=== PATIENT | female | born 1930 | race Caucasian/White ===

== ENCOUNTER 2016-08-07 11:07 | Inpatient (IN) | payer MEDICARE ==
[~2016-08-07] VITALS: Ht 149.9 cm; Wt 33.2 kg
[~2016-08-07 11:07] MED LIST: ADV250INH INH; ASPI325T PO; AZIT250T3 PO; CALC600T7 PO; CALCTAB68 PO; CENTTAB47 PO; CRAN500C2 PO; DOCU10ELUD PO; ETHA400T PO; FISH1000 PO; FISHOIL PO; FLEC50TA PO; FLUTISP; IRON65TA PO; LEVO500T PO; MEST60TA PO; MULTCAP PO; PERC5TAB PO; PERC7.5T12 PO; PRED10TA PO; PRED50TA PO; PROBCAP4 PO; Q-VAR INH; QVAR40AE8 INH; QVAR80AE7 INH; RIFA300C3 PO; TYLE325T5 PO; VITA-121 PO; VITA100054 PO; VITA200016 PO; VITMTA PO
[2016-08-07 11:56] LABS: BASO % 0.3 % (0.0-1.0); EOS # 0.2 K/mm3 (0.0-0.50); EOS % 1.1 % (0.0-3.0); LARGE UNSTAINED CELL # 0.1 K/mm3 (0.0-0.4); LARGE UNSTAINED CELL % 0.6 % (0.0-4.0); LYMPH # 0.9 K/mm3 (1.5-4.5); LYMPH % 4.7 % (24.0-44.0); MEAN CORPUSCULAR HEMOGLOBIN 28.1 pg (27.0-33.0); MEAN CORPUSCULAR HGB CONC 31.5 g/dl (32.0-36.5); MEAN CORPUSCULAR VOLUME 89.2 fl (80.0-96.0); MONO # 0.7 K/mm3 (0.0-0.8); MONO % 4.2 % (0.0-5.0); NEUTROPHILS # 15.7 K/mm3 (1.8-7.7); NEUTROPHILS % 89.2 % (36.0-66.0); PLATELET COUNT, AUTOMATED 430 k/mm3 (150-450); RED CELL DISTRIBUTION WIDTH 13.8 % (11.5-14.5); WHITE BLOOD COUNT 17.6 K/mm3 (4.0-10.0)
--- NOTE | 2016-08-07 12:33 | REP ---
PORTABLE CHEST: AP portable view of the chest is performed and compared with multiple prior exams, most recently 03/07/2016 and 01/17/2016. 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 No definite acute infiltrate is seen. The heart appears mildly enlarged. Mediastinal silhouette is unchanged. IMPRESSION: Stable chronic fibrotic changes. No definite acute infiltrate. Signed by Florin Gil MD 08/07/2016 02:20 P
[2016-08-07 12:37] LABS: ANION GAP 10 MEQ/L (8-16); BLOOD UREA NITROGEN 25 MG/DL (7-18); CALCIUM LEVEL 9.5 MG/DL (8.8-10.2); CARBON DIOXIDE LEVEL 31 MEQ/L (21-32); CHLORIDE LEVEL 100 MEQ/L (98-107); FREE T4 1.14 NG/DL (0.76-1.46); GLOMERULAR FILTRATION RATE > 60.0 (>32); GLUCOSE, FASTING 154 MG/DL (83-110); MAGNESIUM LEVEL 1.9 MG/DL (1.8-2.4); POTASSIUM SERUM 4.4 MEQ/L (3.5-5.1); SODIUM LEVEL 141 MEQ/L (136-145)
[2016-08-07] MEDS ORDERED: PRED10TA PO (13:12)
[2016-08-07] MEDS ORDERED: AZIT250T3 PO (13:12)
[2016-08-07] MEDS ORDERED: ASPIRIN 81 MG CHEW TABLET As Ordered ONE (13:23)
--- NOTE | 2016-08-07 15:18 | HPEPDOC ---
Medical History and Physical Date of Admission Aug 07, 2016 at 13:24 History and Physical ATTENDING: Dr. Marcus PCP: Dr Romo CC: Not feeling well for 1 week HPI: 86 yoF with a past medical history significant for history of atrial tachycardia on flecainide as per Dr Hou. According to her daughter she cut her dose in half because it was making her tired. She has been feeling palpitations, dyspnea on exertion, intermittent dizziness, headaches, increased shortness of breath. Overall she has not been feeling well for the past 1 week. Her last fall was in May. According to her daughter she has lost 10 pounds in the past 2 months. She reports decreased appetite. Denies any fevers, chills , YOUSIF, CP, abdominal pain, N/V/D or changes in bowel or bladder habits. Upon presentation to the hospital the patient was found to have atrial tachycardia, thus the hospitalist team was consulted. 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 3 children ovarian cancer, lung cancer, suicide. ROS: As noted in HPI, otherwise 11pt ROS of systems reviewed and remarkable only for her daughter states she has had difficulty with her memory. She has been evaluated by Dr. Santso in the past. PE: GEN: 86yoF, appears stated age. Well-nourished, well developed. No acute distress. Alert and oriented x 3. Pleasant, interactive. HEENT: Normocephalic, atraumatic. Pupils are equal, round, and reactive to light. Extraocular movements are intact. No nystagmus appreciated. Sclera are nonicteric. Conjunctiva without injection. Nose midline. Nasal turbinates without bogginess.B/L hearing aids. No facial asymmetry. Moist mucous membranes. Dentition fair. Pharynx pink and moist, no cobblestoning. Neck supple , trachea midline. No lymphadenopathy or thyromegaly appreciated. CHEST: Regular rate and rhythm, +S1, +S2 LUNGS: Decreased breath sounds bilaterally. Patient is speaking in full sentences. No accessory muscle use. ABD: Round, soft, non-tender, non-distended. +Bowel sounds throughout. No rebound or guarding. No costovertebral angle tenderness. EXT: Pulses 2+ bilaterally dorsalis pedis and radial. No lower extremity edema appreciated. SKIN: [place], dry, warm. Capillary refill <2sec. No rashes. NEURO: Alert and oriented x 3. Cranial nerves III-XII are intact. No focal deficits appreciated. CXR: Severe COPD with extensive fibrosis. EK/13 11:22. Sinus tach, possible atrial flutter, left anterior fascicular block, ST-T wave abnormality, 157 bpm. EKG 08/07 sinus rhythm 79 bpm occasional PVC. A&P: 86 yoF with a past medical history significant for history of atrial tachycardia on flecainide as per Dr Hou. According to her daughter she cut her dose in half because it was making her tired. She has been feeling palpitations, dyspnea on exertion, intermittent dizziness, headaches, increased shortness of breath. Overall she has not been feeling well for the past 1 week. The patient will be admitted to PCU to Dr. Marcus's service. 1. Atrial tachycardia. Cardiology consulted, Dr. Lal. Spoke with Dr Lal, he will follow Pt. Flecainide on hold for now. (Per Dtr, pt has been self adjusting dose as Pt feels it was causing side effects and did not want to continue taking it). Cardizem 30 mg po TID with hold parameters. 2. Interstitial lung disease. Patient remains on Qvar BID, prednisone 10 mg daily. 3. Nontuberculous Mycobacterium. Regimen as per Dr Mesa. 4. DVT prophylaxis. The patient is a Full code. Vital Signs 109/73 77 18 98.1 96% 2 L nasal cannula Laboratory Data Labs 24H Laboratory Tests 2 08/07/16 11:40: Anion Gap 10, Blood Urea Nitrogen 25H, Creatinine 0.80, Sodium Level 141, Potassium Level 4.4, Chloride Level 100, Carbon Dioxide Level 31, Calcium Level 9.5, Total Creatine Kinase 45, Creatine Kinase MB 1.9, Creatine Kinase MB Relative Index 4.22H, Free Thyroxine 1.14, Glomerular Filtration Rate > 60.0, Magnesium Level 1.9, Thyroid Stimulating Hormone (TSH) 4.610H, Troponin I 0.17H 08/07/16 11:41: White Blood Count 17.6H, Red Blood Count 4.58, Hemoglobin 12.9, Hematocrit 40.9 , Mean Corpuscular Volume 89.2, Mean Corpuscular Hemoglobin 28.1, Mean Corpuscular Hemoglobin Concent 31.5L, Red Cell Distribution Width 13.8, Platelet Count 430, Neutrophils (%) (Auto) 89.2H, Lymphocytes (%) (Auto) 4.7L, Monocytes (%) (Auto) 4.2, Eosinophils (%) (Auto) 1.1, Basophils (%) (Auto) 0.3, Neutrophils # (Auto) 15.7H, Lymphocytes # (Auto) 0.9L, Monocytes # (Auto) 0.7, Eosinophils # (Auto) 0.2, Basophils # (Auto) 0.0, Large Unclassified Cells # 0.1 , Large Unclassified Cells % 0.6 CBC/BMP Laboratory Tests 08/07/16 11:40 Calcium Level 9.5, Total Creatine Kinase 45 08/07/16 11:41 Red Blood Count 4.58, Mean Corpuscular Volume 89.2, Mean Corpuscular Hemoglobin 28.1, Mean Corpuscular Hemoglobin Concent 31.5 L, Red Cell Distribution Width 13.8, Neutrophils (%) (Auto) 89.2 H, Lymphocytes (%) (Auto) 4.7 L, Monocytes (% ) (Auto) 4.2, Eosinophils (%) (Auto) 1.1, Basophils (%) (Auto) 0.3, Neutrophils # (Auto) 15.7 H, Lymphocytes # (Auto) 0.9 L, Monocytes # (Auto) 0.7, Eosinophils # (Auto) 0.2, Basophils # (Auto) 0.0 Home Medications Scheduled Azithromycin (Azithromycin) 250 Mg Tab 250 MG PO DAILY Beclomethasone Dipropionate (Qvar) 80 Mcg/Act Aer 80 MCG INH BID Calcium/Vitamin D (Calcium 600 + D 600-400 mg-Unit) 1 Tab Tab 1 TAB PO DAILY Cholecalciferol (Vitamin D-3) 1,000 Unit Tab 1,000 UNIT PO DAILY Cranberry Extract (Cranberry) 500 Mg Cap 500 MG PO DAILY Ethambutol HCl (Ethambutol HCl) 400 Mg Tab 800 MG PO DAILY Multivitamins *[facility] STOCKED* (Thera M Plus *[facility] STOCKED*) 1 Tab Tab 1 TAB PO DAILY Prednisone (Prednisone) 10 Mg Tab 10 MG PO DAILY Allergies Coded Allergies: No Known Allergies (Unverified , 11/17/14) GME ATTESTATION GME ATTESTATION My preceptor for this patient encounter was physically present in the building during the encounter and was fully available. As needed, all aspects of the patient interview, examination, medical decision making process, and medical care plan development were reviewed and approved by the preceptor. Preceptor is aware and concurs with the plan as stated in the body of this note and will attest to such by his/her cosignature. ATTENDING NOTE I have both independently examined this patient as well as reviewed the note. I have discussed in detail with the PA the findings and plan of treatment as documented in the PAs note. I will continue to follow the patient and offer further guidance to the patients care as necessary during this hospital stay. Heidi Montero Aug 07, 2016 15:17 KIMBERLY APONTE DO Aug 16, 2016 06:44
[2016-08-07 15:26] VITALS: BP 100/57
--- NOTE | 2016-08-07 19:13 | EDDOCDS ---
Physician Documentation [facility] Name: Loreto Adam Age: 86 yrs Sex: Female : 1930 Arrival Date: 08/07/2016 Time: 11:07 Bed Admit Hold Private MD: Ryan Romo M.D. Disposition: 08/07 13:00 Critical Care:. ml Disposition: 08/07/16 13:00 Hospitalization ordered by Nilam Lopez for Inpatient Admission. Preliminary diagnosis is Palpitations - atrial flutter rapid vs svt. - Bed requested for PCU. - Status is Inpatient Admission. ml3 - Condition is Stable. - Problem is new. - Symptoms have improved. Historical: - Allergies: no known allergies; - Home Meds: 1. prednisone 5 mg Oral tab 2 tabs once daily 2. azithromycin 250 mg Oral cap daily 3. ethambutol 400 mg oral tab 2 tab once daily 4. Centrum Silver 400-250 mcg oral chew 5. Citracal Oral daily 6. cranberry 400 mg oral cap 7. Vitamin D Oral 8. qvar twice a day 80mg - PMHx: interstitial lung disease; nontuberculous myobacteria; Pneumonia; - PSHx: none; - Social history: Smoking status: Patient states was never smoker of tobacco. No barriers to communication noted, The patient speaks fluent Swedish, Speaks appropriately for age. - Family history: Not pertinent. - : The pt / caregiver states he / she is not on anticoagulants. Home medication list is obtained from the patient, pill bottles. - Exposure Risk Screening:: None identified. Vital Signs: 11:09 BP 94 / 58; Pulse 46; Resp 16; Weight 34.93 kg / 77.01 lbs (R); Height 4 ft. 11 in. ct3 (149.86 cm) (R); 11:20 BP 124 / 88 (auto/); cjh 11:28 Pulse 156 MON; Pulse Ox 76% ; cjh 11:50 BP 120 / 73 (auto/); cjh 11:51 Pulse 152 MON; Pulse Ox 92% ; cjh 11:56 BP 112 / 73 (auto/); cjh 11:57 Pulse 150 MON; Pulse Ox 93% ; cjh 12:04 BP 107 / 55 (auto/); cjh 12:05 Pulse 84 MON; Pulse Ox 95% ; cjh 14:50 BP 102 / 56 (auto/); cjh 14:50 Pulse 74 MON; Pulse Ox 97% ; cjh 15:20 BP 100 / 57 (auto/); cjh 15:20 Pulse 72 MON; Pulse Ox 97% ; cjh 15:50 BP 96 / 52 (auto/); cjh 15:50 Pulse 78 MON; Pulse Ox 97% ; cjh 16:20 BP 101 / 58 (auto/); cjh 16:20 Pulse 72 MON; Pulse Ox 100% ; cjh 16:49 Pulse 70 MON; Pulse Ox 99% ; cjh 16:50 BP 104 / 55 (auto/); cjh 17:01 BP 101 / 55 (auto/); cjh 17:01 Pulse 72 MON; Pulse Ox 97% ; cjh 17:03 BP 101 / 55; Pulse 72; Resp 17; Temp 98.0(O); Pulse Ox 98% on 2.0 lpm NC; lr2 17:20 BP 96 / 58 (auto/); cjh 17:20 Pulse 70 MON; Pulse Ox 97% ; cjh 17:50 BP 114 / 61 (auto/); cjh 17:50 Pulse 74 MON; Pulse Ox 99% ; cjh 18:20 BP 101 / 54 (auto/); cjh 18:20 Pulse 76 MON; Pulse Ox 99% ; cjh 18:50 BP 98 / 53 (auto/); cjh 18:50 Pulse 70 MON; Pulse Ox 100% ; cjh 11:09 Body Mass Index 15.55 (34.93 kg, 149.86 cm) ct3 MDM: 11:17 ECG WITH READING ER PHYS+CARDIAG ordered. EDMS 11:19 IV Saline Lock ordered. ml 11:19 Buckle Strap Drum Operator/Pulse Ox/q 15 min VS ordered. ml 11:19 Rhythm Strip to chart ordered. ml 11:20 CBC with Diff Ordered. EDMS 11:20 MED Profile Ordered. EDMS 11:20 FreeT4 with TSH Ordered. EDMS 11:20 CIP Ordered. EDMS 11:20 Troponin Ordered. EDMS 11:21 Chest, 1 View Ordered. EDMS 11:39 Magnesium Level Ordered. EDMS 11:44 NS 0.9% 500 ml IV at bolus once ordered. ml 11:47 Diltiazem 10 mg IVP once; administer over 2 minutes ordered. ml 11:47 MAGNESIUM LEVEL Ordered. EDMS 12:03 ECG WITH READING ER PHYS+CARDIAG ordered. EDMS 12:22 Cardizem - Diltiazem 30 mg PO once ordered. ml 12:45 BED REQUEST+ADM ordered. EDMS 12:57 CBC with Diff Reviewed. ml 12:57 MED Profile Reviewed. ml 12:57 FreeT4 with TSH Reviewed. ml 12:57 CIP Reviewed. ml 12:57 Troponin Reviewed. ml 12:57 MAGNESIUM LEVEL Reviewed. ml 12:57 Chest, 1 View Reviewed. ml 12:59 Aspirin Chewable Tablet 324 mg PO once ordered. ml 13:27 Admission / Observation Status ordered. EDMS 13:50 Financial registration complete. 13:55 [facility] Payment Agreement was scanned into [id number] and attached to record. lg 15:23 REGULAR DIET ordered. EDMS 15:27 CARDIAC MARKER PANEL Ordered. EDMS 15:27 URINE CULTURE Ordered. EDMS 15:27 BLOOD CULTURES Ordered. EDMS Administered Medications: 11:51 Drug: NS 0.9% 500 ml Route: IV; Rate: bolus; Site: left forearm; [facility] 12:00 Drug: Diltiazem 10 mg [diltiazem 5 mg/mL intravenous solution (2 mL)] {Note: [facility] administerd 5mg and rate decreased to 84 bpm. Provider informed, and EKG obtained, verbal order to hold additional 5mg.} Route: IVP; Site: left antecubital; 12:34 Drug: Cardizem - Diltiazem 30 mg [diltiazem 30 mg tablet (1 tabs)] Route: PO; [facility] 13:30 Drug: Aspirin 324 mg [aspirin 81 mg chewable tablet (4 tabs)] Route: PO; [facility] Critical Care Time: 13:00 Critical care time: Bedside Care: 90 minutes, Consultation: 10 minutes. Total time: 100 ml minutes Signatures: Dispatcher [employer] EDND Arpit Sibley MD MD ml Jobson, Karen, RN RN kpj Ganter, LoriLee, Jose Reg Shanika Jimeneszabeth, [place] Supervisor Unit ml3 Octavia Carver RN RN kr3 Harriet Villegas RN RN [facility] The chart was reviewed and I authenticate all verbal orders and agree with the evaluation and treatment provided.[facility]: 13[facility]
--- NOTE | 2016-08-07 19:13 | EDDOCDS ---
Nurse's Notes [facility] Name: Loreto Adam Age: 86 yrs Sex: Female : 1930 Arrival Date: 08/07/2016 Time: 11:07 Bed Admit Hold Private MD: Ryan Romo M.D. Diagnosis: Palpitations-atrial flutter rapid vs svt Presentation: 08/07 11:23 Presenting complaint: Patient states: not feeling well for over 1 week. Reports balance kr3 has been off and today it was at its worse. Complains of palpitations on and off for many months. Adult Sepsis Screening: The patient does not have new or worsening altered mentation. Patient's respiratory rate is less than 22. Systolic blood pressure is greater than 100. Patient has a qSOFA score of 0- Negative Sepsis Screen. Suicide/Homicide risk assessment- the patient denies having any suicidal and/or homicidal ideations and does not present with any other emotional, behavioral or mental health complaints. Status: Patient is not a job service consultant or dependent. Transition of care: patient was not received from another setting of care. 11:23 Acuity: SALOMON Level 2 kr3 11:23 Method Of Arrival: Wheelchair kr3 Triage Assessment: 11:46 General: Appears in no apparent distress, comfortable, Behavior is cooperative. Pain: kr3 Location: chest Pain currently is 5 out of 10 on a pain scale. Quality of pain is described as aching. The patient is triaged at the bedside. See Assessment in Nurses Notes section of ED record. Historical: - Allergies: no known allergies; - Home Meds: 1. prednisone 5 mg Oral tab 2 tabs once daily 2. azithromycin 250 mg Oral cap daily 3. ethambutol 400 mg oral tab 2 tab once daily 4. Centrum Silver 400-250 mcg oral chew 5. Citracal Oral daily 6. cranberry 400 mg oral cap 7. Vitamin D Oral 8. qvar twice a day 80mg - PMHx: interstitial lung disease; nontuberculous myobacteria; Pneumonia; - PSHx: none; - Social history: Smoking status: Patient states was never smoker of tobacco. No barriers to communication noted, The patient speaks fluent [place], Speaks appropriately for age. - Family history: Not pertinent. - : The pt / caregiver states he / she is not on anticoagulants. Home medication list is obtained from the patient, pill bottles. - Exposure Risk Screening:: None identified. Screenin:16 Infection Control. ct3 18:10 Screening information is obtained from the patient. Fall risk: At risk due to age. [facility] Assistance ADL's: requires no assistance with activities of daily living. Abuse/DV Screen: The patient / caregiver reports he/she is: not in a situation that causes fear, pain or injury. Nutritional screening: No deficits noted. Advance Directives: There is no active DNR order. home support is adequate. Assessment: 12:09 General: Appears in no apparent distress, comfortable, Behavior is appropriate for age, [facility] cooperative. Pain: Denies pain. Neurological: Level of Consciousness is awake, alert, Oriented to person, place, time. Cardiovascular: Rhythm is atrial fibrillation with rapid ventricular response. Respiratory: Airway is patent Respiratory effort is even, unlabored, Respiratory pattern is regular, symmetrical, Breath sounds are clear bilaterally. Derm: Skin is pale. Musculoskeletal: Range of motion intact in all extremities. 13:30 General: Appears in no apparent distress, comfortable, Behavior is appropriate for age, [facility] cooperative, resting quietly on stretcher, and daughter at bedside, taking medications without difficulty, awaiting dispo and information from provider. Cardiovascular: Rhythm is sinus rhythm. 14:30 General: quiet in room, awaiting dispo. [facility] 15:30 General: assisted with bedside commode via [employer] staff, tolerates well. [facility] 16:30 General: Appears in no apparent distress, comfortable, Behavior is appropriate for age, [facility] cooperative, family at bedside, awaiting dispo. 18:10 General: Appears in no apparent distress, comfortable, Behavior is appropriate for age, [facility] cooperative. Pain: Denies pain. Neurological: Level of Consciousness is awake, alert, Oriented to person, place, time. Cardiovascular: Rhythm is sinus tachycardia. 18:59 General: awaiting admission, pending, no new problems or complaints. [facility] Vital Signs: 11:09 BP 94 / 58; Pulse 46; Resp 16; Weight 34.93 kg (R); Height 4 ft. 11 in. (149.86 cm) (R);ct3 11:20 BP 124 / 88 (auto/); h 11:28 Pulse 156 MON; Pulse Ox 76% ; cjh 11:50 BP 120 / 73 (auto/); cjh 11:51 Pulse 152 MON; Pulse Ox 92% ; cjh 11:56 BP 112 / 73 (auto/); cjh 11:57 Pulse 150 MON; Pulse Ox 93% ; cjh 12:04 BP 107 / 55 (auto/); cjh 12:05 Pulse 84 MON; Pulse Ox 95% ; cjh 14:50 BP 102 / 56 (auto/); cjh 14:50 Pulse 74 MON; Pulse Ox 97% ; cjh 15:20 BP 100 / 57 (auto/); cjh 15:20 Pulse 72 MON; Pulse Ox 97% ; cjh 15:50 BP 96 / 52 (auto/); cjh 15:50 Pulse 78 MON; Pulse Ox 97% ; cjh 16:20 BP 101 / 58 (auto/); cjh 16:20 Pulse 72 MON; Pulse Ox 100% ; cjh 16:49 Pulse 70 MON; Pulse Ox 99% ; cjh 16:50 BP 104 / 55 (auto/); cjh 17:01 BP 101 / 55 (auto/); cjh 17:01 Pulse 72 MON; Pulse Ox 97% ; cjh 17:03 BP 101 / 55; Pulse 72; Resp 17; Temp 98.0(O); Pulse Ox 98% on 2.0 lpm NC; lr2 17:20 BP 96 / 58 (auto/); cjh 17:20 Pulse 70 MON; Pulse Ox 97% ; cjh 17:50 BP 114 / 61 (auto/); cjh 17:50 Pulse 74 MON; Pulse Ox 99% ; cjh 18:20 BP 101 / 54 (auto/); cjh 18:20 Pulse 76 MON; Pulse Ox 99% ; cjh 18:50 BP 98 / 53 (auto/); cjh 18:50 Pulse 70 MON; Pulse Ox 100% ; cjh 11:09 Body Mass Index 15.55 (34.93 kg, 149.86 cm) ct3 Vitals: 11:09 Log In Time: August 07, 2016 at 10:07. ct3 11:09 RN notified that patient meets Red Flag criteria. ct3 ED Course: 11:09 Patient visited by Cecilia Hernandez PCA. ct3 11:09 Ryan Romo is Private Physician. ct3 11:09 Patient moved to Waiting ct3 11:15 Octavia Carver,DAKSHA is Primary Nurse. ct3 11:15 Patient moved to 19 ct3 11:22 EKG done. (by ED staff). Reviewed by Arpit Sibley MD. ar3 11:24 Triage Initiated kr3 11:27 Patient moved to 4 kp 11:28 Arpit Sibley MD is Attending Physician. ml 11:28 Patient visited by Arpit Sibley MD. ml 11:31 Patient visited by Medina Carrillo PCA. ar3 11:46 Inserted saline lock: 22 gauge in left forearm The patient tolerated the procedure well.kr3 12:08 MAGNESIUM LEVEL Sent. cjh 12:08 Troponin Sent. cjh 12:08 CIP Sent. cj 12:08 FreeT4 with TSH Sent. cj 12:08 MED Profile Sent. cj 12:35 Patient visited by Harriet Villegas RN. cj 12:45 Chest, 1 View Returned. EDMS 13:00 Nilam Lopez is Hospitalizing Provider. 13:31 Patient visited by Harriet Villegas RN. cj 13:55 [facility] Payment Agreement was scanned into [employer] and attached to record. lg 14:22 Chest, 1 View Returned. EDMS 14:51 Patient moved to 13 rs6 16:20 Patient moved to Admit Hold kp 17:43 Patient visited by Medina Carrillo PCA. ar3 18:10 The patient / caregiver is instructed regarding the plan of care and ED course. cjh 18:10 No procedures done that require assistance. cj 18:11 Patient visited by Pam Vitale RN. ld5 Administered Medications: 11:51 Drug: NS 0.9% 500 ml Route: IV; Rate: bolus; Site: left forearm; [facility] 12:00 Drug: Diltiazem 10 mg [diltiazem 5 mg/mL intravenous solution (2 mL)] {Note: [facility] administerd 5mg and rate decreased to 84 bpm. Provider informed, and EKG obtained, verbal order to hold additional 5mg.} Route: IVP; Site: left antecubital; 12:34 Drug: Cardizem - Diltiazem 30 mg [diltiazem 30 mg tablet (1 tabs)] Route: PO; [facility] 13:30 Drug: Aspirin 324 mg [aspirin 81 mg chewable tablet (4 tabs)] Route: PO; [facility] Order Results: Lab Order: CBC with Diff; SPEC'M 08/07/16 11:41 Test: WHITE BLOOD COUNT; Value: 17.6; Range: 4.0-10.0; Abnormal: Above high normal; Units: K/mm3; Status: F Test: RED BLOOD COUNT; Value: 4.58; Range: 4.00-5.40; Units: M/mm3; Status: F Test: HEMOGLOBIN; Value: 12.9; Range: 12.0-16.0; Units: g/dl; Status: F Test: HEMATOCRIT; Value: 40.9; Range: 36.0-47.0; Units: %; Status: F Test: MEAN CORPUSCULAR VOLUME; Value: 89.2; Range: 80.0-96.0; Units: fl; Status: F Test: MEAN CORPUSCULAR HEMOGLOBIN; Value: 28.1; Range: 27.0-33.0; Units: pg; Status: F Test: MEAN CORPUSCULAR HGB CONC; Value: 31.5; Range: 32.0-36.5; Abnormal: Below low normal; Units: g/dl; Status: F Test: RED CELL DISTRIBUTION WIDTH; Value: 13.8; Range: 11.5-14.5; Units: %; Status: F Test: PLATELET COUNT, AUTOMATED; Value: 430; Range: 150-450; Units: k/mm3; Status: F Test: NEUTROPHILS %; Value: 89.2; Range: 36.0-66.0; Abnormal: Above high normal; Units: %; Status: F Test: LYMPH %; Value: 4.7; Range: 24.0-44.0; Abnormal: Below low normal; Units: %; Status: F Test: MONO %; Value: 4.2; Range: 0.0-5.0; Units: %; Status: F Test: EOS %; Value: 1.1; Range: 0.0-3.0; Units: %; Status: F Test: BASO %; Value: 0.3; Range: 0.0-1.0; Units: %; Status: F Test: LARGE UNSTAINED CELL %; Value: 0.6; Range: 0.0-4.0; Units: %; Status: F Test: NEUTROPHILS #; Value: 15.7; Range: 1.8-7.7; Abnormal: Above high normal; Units: K/mm3; Status: F Test: LYMPH #; Value: 0.9; Range: 1.5-4.5; Abnormal: Below low normal; Units: K/mm3; Status: F Test: MONO #; Value: 0.7; Range: 0.0-0.8; Units: K/mm3; Status: F Test: EOS #; Value: 0.2; Range: 0.0-0.50; Units: K/mm3; Status: F Test: BASO #; Value: 0.0; Range: 0.0-0.2; Units: K/mm3; Status: F Test: LARGE UNSTAINED CELL #; Value: 0.1; Range: 0.0-0.4; Units: K/mm3; Status: F Lab Order: [facility] Profile; [facility]' 08/07/16 11:40 Test: GLUCOSE, FASTING; Value: 154; Range: 83-110; Abnormal: Above high normal; Units: MG/DL; Status: F Test: BLOOD UREA NITROGEN; Value: 25; Range: 7-18; Abnormal: Above high normal; Units: MG/DL; Status: F Test: CREATININE FOR GFR; Value: 0.80; Range: 0.55-1.02; Units: MG/DL; Status: F Test: GLOMERULAR FILTRATION RATE; Value: > 60.0; Range: >32; Status: F Test: SODIUM LEVEL; Value: 141; Range: 136-145; Units: MEQ/L; Status: F Test: POTASSIUM SERUM; Value: 4.4; Range: 3.5-5.1; Units: MEQ/L; Status: F Test: CHLORIDE LEVEL; Value: 100; Range: 98-107; Units: MEQ/L; Status: F Test: CARBON DIOXIDE LEVEL; Value: 31; Range: 21-32; Units: MEQ/L; Status: F Test: ANION GAP; Value: 10; Range: 8-16; Units: MEQ/L; Status: F Test: CALCIUM LEVEL; Value: 9.5; Range: 8.8-10.2; Units: MG/DL; Status: F Test Note: ; Units are mL/min/1.73 m2 Chronic Kidney Disease Staging per NKF: Stage I & II GFR >=60 Normal to Mildly Decreased Stage III GFR 30-59 Moderately Decreased Stage IV GFR 15-29 Severely Decreased Stage V GFR <15 Very Little GFR Left ESRD GFR <15 on QUILT STUFFER Lab Order: FreeT4 with TSH; [facility] 08/07/16 11:40 Test: THYROID STIMULATING HORMONE; Value: 4.610; Range: 0.358-3.740; Abnormal: Above high normal; Units: uIU/ML; Status: F Test: FREE T4; Value: 1.14; Range: 0.76-1.46; Units: NG/DL; Status: F Lab Order: CIP; [facility]08/[facility] 11:40 Test: CPK CREATINE PHOSPHOKINASE; Value: 45; Range: 26-192; Units: U/L; Status: F Test: CK-MB VALUE MASS; Value: 1.9; Range: 0.0-3.6; Units: NG/ML; Status: F Test: MB/CK RELATIVE INDEX; Value: 4.22; Range: < OR =4; Abnormal: Above high normal; Status: F Test Note: ; DIAGNOSIS CRITERIA MMB ng/ml Relative Index (RI) NON-AMI < or = 5 N/A GIL ZONE > 5 < or = 4 AMI > 5 > 4 Lab Order: Troponin; [facility] 08/07/16 11:40 Test: TROPONIN I; Value: 0.17; Range: < 0.10; Abnormal: Above high normal; Units: NG/ML; Status: F Test Note: ; Troponin I Reference Interval for [employer]raw[employer] LOCI: 99th Percentile= 0.00-0.045 ng/ml Risk Stratification: <= 0.10 ng/ml Decreased Risk for Adverse Clinical Events. 0.10-1.50 ng/ml Increased Risk for Adverse Clinical Events. Evaluation of additional criterion and/or repeat testing in 2-6 hours is suggested to rule out myocardial damage. >= 1.50 ng/ml Indicative of Myocardial Injury. Lab Order: MAGNESIUM LEVEL; [facility] 08/07/16 11:40 Test: MAGNESIUM LEVEL; Value: 1.9; Range: 1.8-2.4; Units: MG/DL; Status: F Lab Order: CARDIAC MARKER PANEL; SPEC'M 08/07/16 18:18 Test: CPK CREATINE PHOSPHOKINASE; Value: 34; Range: 26-192; Units: U/L; Status: F Test: CK-MB VALUE MASS; Value: 1.3; Range: 0.0-3.6; Units: NG/ML; Status: F Test: MB/CK RELATIVE INDEX; Value: 3.82; Range: < OR =4; Status: F Test: TROPONIN I; Value: 0.10; Range: < 0.10; Abnormal: Delta; Units: NG/ML; Status: F Test Note: ; DIAGNOSIS CRITERIA MMB ng/ml Relative Index (RI) NON-AMI < or = 5 N/A GIL ZONE > 5 < or = 4 AMI > 5 > 4 Radiology Order: Chest, 1 View Test: Chest, 1 View REASON FOR EXAMINATION: palpitatins; PORTABLE CHEST:; ; AP portable view of the chest is performed and compared with multiple prior; exams, most recently 03/07/2016 and 01/17/2016.; ; There is diffuse severe fibrosis which appears essentially stable. No definite; acute infiltrate is seen. The heart appears mildly enlarged. Mediastinal; silhouette is unchanged.; ; IMPRESSION:; ; Stable chronic fibrotic changes. No definite acute infiltrate.; ; ; Signed by; Florin Gil MD 08/07/2016 02:20 P; Outcome: 13:00 Decision to Hospitalize by Provider. ml 18:10 Discharge Assessment: Patient awake, alert and oriented x 3. No cognitive and/or cjh functional deficits noted. Patient verbalized understanding of disposition instructions. patient administered narcotics - no. The following High Risk Discharge criteria are identified: None. Admitted to PCU. Condition: stable. No special radiology studies were completed. Property :Personal belongings accompany Pt. 19:12 Patient left the ED. ml3 Signatures: Dispatcher [employer] EDMS Arpit Sibley MD MD ml Jobson, Karen, RN RN Gerry Patrick, Reg Reg lg Diane Jimenesbeth, Loan Consultant Unit ml3 Octavia Carver,RN RN patti3 Medina Carrillo, [employer] ar3 Pam Vitale RN RN sandro5 Cecilia Hernandez, [employer] ct3 Harriet Villegas RN RN cjh Teresita Gutierrez, [employer] rs6 Pam Pedraza lr2 Corrections: (The following items were deleted from the chart) 18:13 18:10 CT Study completed. [facility] MTDD
[2016-08-07 19:15] VITALS: BP 106/58
[2016-08-07 23:39] VITALS: BP 119/56
[2016-08-07] MEDS: FLUTICASONE HFA 44 MCG 10.6GM INHALER (FLOVENT) INH SCH (23:39)
[2016-08-08] VITALS (7 sets, daily range): BP systolic 85–133; BP diastolic 55–93
[2016-08-08] MEDS: ACETAMINOPHEN TAB 650MG DOSE (2X325MG) PO PRN (01:54)
[2016-08-08 05:13] LABS: MEAN CORPUSCULAR HEMOGLOBIN 27.5 pg (27.0-33.0); MEAN CORPUSCULAR HGB CONC 30.8 g/dl (32.0-36.5); MEAN CORPUSCULAR VOLUME 89.1 fl (80.0-96.0); RED CELL DISTRIBUTION WIDTH 14.1 % (11.5-14.5); WHITE BLOOD COUNT 8.8 K/mm3 (4.0-10.0)
[2016-08-08 05:33] LABS: ALBUMIN 2.3 GM/DL (3.2-5.2); ALBUMIN/GLOBULIN RATIO 0.59 (1.00-1.93); ALKALINE PHOSPHATASE 71 U/L (45-117); ALT/SGPT 16 U/L (12-78); ANION GAP 7 MEQ/L (8-16); AST/SGOT 25 U/L (15-37); BILIRUBIN,TOTAL 0.2 MG/DL (0.2-1.0); BLOOD UREA NITROGEN 21 MG/DL (7-18); CALCIUM LEVEL 8.1 MG/DL (8.8-10.2); CARBON DIOXIDE LEVEL 30 MEQ/L (21-32); CHLORIDE LEVEL 104 MEQ/L (98-107); CREATININE FOR GFR 0.55 MG/DL (0.55-1.02); GLOMERULAR FILTRATION RATE > 60.0 (>32); GLUCOSE, FASTING 79 MG/DL (83-110); POTASSIUM SERUM 3.5 MEQ/L (3.5-5.1); SODIUM LEVEL 141 MEQ/L (136-145); TOTAL PROTEIN 6.2 GM/DL (6.4-8.2)
--- NOTE | 2016-08-08 07:57 | ECGEPIP ---
Stationary ECG Study [facility] - ED Test Date: 2016-08-07 Pat Name: NEEL MC Department: Room: - Gender: F Relations Liaison: sabine : 1930 Requested By: Arpit Sibley Order Number: [id number] Reading MD: Demetria Torres Measurements Intervals [place] Rate: 157 P: 109 TN: 111 QRS: -67 QRSD: 78 T: -82 QT: 291 QTc: 470 Interpretive Statements NARROW COMPLEX TACHYCARDIA POSSIBLE SINUS TACHYCARDIA WITH SHORT TN INTERVAL,PROBABLE ATRIAL FLUTTER LOW QRS VOLTAGE IN EXTREMITY LEADS LEFT ANTERIOR FASCICULAR BLOCK ST DEVIATION AND MODERATE T-WAVE ABNORMALITY, CONSIDER ISCHEMIA Electronically Signed On 08-08-2016 7:57:13 EST by Demetria Torres
--- NOTE | 2016-08-08 07:59 | ECGEPIP ---
Stationary ECG Study [facility] - ED Test Date: 2016-08-07 Pat Name: NEEL MC Department: Room: - Gender: F Education And Outreach Coordinator: jelly : 1930 Requested By: Arpit Sibley Order Number: [id number] Reading MD: Demetria Torres Measurements Intervals [place] Rate: 79 P: 82 [place]: 147 QRS: -49 QRSD: 84 T: 19 QT: 397 QTc: 456 Interpretive Statements SINUS RHYTHM WITH FREQUENT VENTRICULAR PREMATURE COMPLEXES MARKED LEFT AXIS DEVIATION BASELINE ARTIFACT LIMITS INTERPRETATION PRIOR NARROW COMPLEX TACHYCARDIA 150 11:22 Electronically Signed On 08-08-2016 7:59:02 EST by Demetria Torres
[2016-08-08] MEDS: FLUTICASONE HFA 44 MCG 10.6GM INHALER (FLOVENT) INH SCH ×2 (08:22→20:36)
[2016-08-08] MEDS ORDERED: DIGOXIN INJ 0.5 MG/2 ML AMP (J1160) IV ONE ×2 (09:15→14:30)
[2016-08-08] MEDS: predniSONE 10 MG TAB PO SCH (09:30)
[2016-08-08] MEDS: AZITHROMYCIN 250 MG TAB PO SCH (09:30)
[2016-08-08] MEDS: MULTIVITAMINS/MINERALS THERAP 1 TAB PO SCH (09:30)
[2016-08-08] MEDS: VITAMIN D 1,000 INTERNATIONAL UNITS TABLET PO SCH (09:30)
[2016-08-08] MEDS: ETHAMBUTOL 400MG TAB PO SCH (09:31)
--- NOTE | 2016-08-08 10:18 | CR ---
DATE OF CONSULTATION: 08/07/2016 REFERRING PROVIDER: MARY Baldwin REASON FOR CONSULTATION: Supraventricular tachycardia (SVT). PRIMARY CARE PHYSICIAN: Dr. Ryan Romo PRIMARY [place] PARAPROFESSIONAL: Dr. Gee Hou HISTORY OF PRESENT ILLNESS: 86-year-old woman who came to the emergency room (ER) today because she has not been feeling well with lightheadedness, feeling off balance, and palpitations on-and-off. She also has been losing weight for the last 1-2 months. In the ER, she developed supraventricular tachycardia and the case was discussed with the ER provider earlier this year, and she was treated with both IV and oral Cardizem and she responded. She was admitted to the progressive care unit (PCU) for further management and monitoring. When I saw Mrs. Loreto Adam in the evening, she was supine in bed on the floor in no acute distress at rest. She stated that she feels good since in being in the hospital and she has not been having any palpitations. She denies any dizziness or lightheadedness. She has been ambulating and going to the bathroom. She has no cough or hemoptysis. She denies any fever or chills. She had no nausea, vomiting, diarrhea, melena, or hematemesis. There is no report of bleeding. PAST MEDICAL HISTORY: She has a past medical history positive for nontuberculous mycobacterium infection, bronchiectasis, mitral valve prolapse with moderately severe mitral regurgitation and normal left ventricular ejection fraction (LVEF) , atrial flutter/atrial tachycardia. There is no history of hypertension, hyperlipidemia, diabetes mellitus, left ventricular systolic dysfunction, coronary artery disease, cardiomyopathy, sudden cardiac . There is no history of kidney disease. PAST SURGICAL HISTORY: Positive for bilateral cataract extraction, bladder prolapse repair, hysterectomy, lumbosacral laminectomy, and teeth extractions. MEDICATIONS AT HOME: Erythromycin, vitamin B12, flecainide, prednisone, QVAR, and digoxin. CURRENT MEDICATIONS: - azithromycin 250 mg by mouth daily - vitamin D 1000 units by mouth daily - ethambutol 800 mg by mouth daily - multivitamin one tablet by mouth daily - prednisone 10 mg by mouth daily - diltiazem 30 mg by mouth every eight hours - Flovent two puffs twice a day FAMILY HISTORY: Noncontributory. SOCIAL HISTORY: Patient denies any smoking or any ETOH abuse. She had four children. ALLERGIES: She has no known drug allergies. PHYSICAL EXAMINATION: The patient is alert and oriented, very pleasant, in no acute distress at rest. VITAL SIGNS: Last vital signs revealed a blood pressure of 106/58 with a pulse of 69, respirations 20, and her maximum temperature was 98.8 degrees Fahrenheit with an oxygen saturation of 97-100% on two liters nasal cannula. HEENT: Atraumatic. NECK: Supple, I could not appreciate any carotid bruits. LUNGS: Did not reveal any wheezing or crackles. HEART: The heart examination revealed normal S1 and S2 without gallops. The point of maximum impulse (PMI) is not displaced. There is no rub. There is a systolic murmur grade 2/6 at the apex with some radiation to the axilla. ABDOMEN: Soft and nontender. EXTREMITIES: Revealed no pedal edema. NEUROLOGICAL: Negative for focal deficit. LABORATORY DATA: CBC done today revealed a WBC of 17.6, hemoglobin 12.7, hematocrit 40.9, and platelets 130,000. BMP revealed a sodium of 141, potassium 4.4, chloride 100, CO2 31, BUN 25, creatinine 0.8, GFR more than 60, fasting glucose 154, and calcium 9.5. Serum magnesium is 1.9. Serum troponin was 0.17, and 0.10 respectively number 1 and 2. Serum TSH is 4.6. Chest x-ray was reviewed and revealed mild cardiomegaly. No pleural effusion or manifestation of heart failure. IMPRESSION: 86-year-old woman with history of mitral valve prolapse and moderately severe mitral regurgitation, but normal left ventricular ejection fraction (LVEF), bronchiectasis, who was admitted with lightheadedness and palpitations and was found in the hospital to have a supraventricular tachycardia that seems to be atrial flutter. Patient responded to the Cardizem and we will continue the same for now. According to her chart, it seems that she was on digoxin and flecainide. We will see how she does with the digoxin, we will start her on the same medications if her blood pressure continues to be low. It was a pleasure to participate in the care of Mrs. Loreto Adam for her underlying cardiac condition. I will continue to monitor her along with you while in the hospital. At this present time, she appears to be stable. MTDD
--- NOTE | 2016-08-08 17:37 | REP ---
CT HEAD WITHOUT CONTRAST: HISTORY: Headache. COMPARISON: 11/17/2014 Areas of decreased attenuation are present in the periventricular and subcortical white matter. This represents small vessel ischemic disease. There is no intraparenchymal hemorrhage, mass or midline shift. The ventricular system and cortical sulci as well as subarachnoid space in the posterior fossa are dilated consistent with mild volume loss. There is no extracerebral collection. Mucosal thickening is present in the left sphenoid sinus. IMPRESSION: 1. Small vessel ischemic disease. 2. Mild volume loss. Signed by Merlin Sepulveda MD 08/09/2016 08:01 A
--- NOTE | 2016-08-08 18:59 | IPN ---
DATE: 08/08/2015 The patient is feeling well this morning. She has no complaints of pain, chest pain, shortness of breath. Did not experience palpitations last evening with rapid heart rate. Most recently, temperature is 97, pulse is 74, respiratory rate 18, blood pressure 102/55, 96% on 2 liters. Input and output notable for net fluid balance. Body Mass Index (BMI) of 14.2. She is awake, appropriately interactive. Breathing is symmetrically diminished. I:E ratio is 1:4. Speaking in complete sentences. No accessory muscle use. Heart is distant sounding. Normal S1, S2. Regular rate and rhythm. Distal pulses 2+. Capillary refill is less than 2 seconds. Abdomen is soft, somewhat distended, nontender. White cell count 8.8, hemoglobin 10, platelets of 343. BUN 21, creatinine 0.55. CK and troponin negative times three. TSH is 4.6 with a Free T4 of 1.14. Blood culture is pending from yesterday. Chest x-ray from yesterday showed no obvious infiltrate. This is an 86-year-old with atrial flutter with rapid ventricular response. PLAN: 1. Cardiovascular. I have discussed the case with Dr. Lal in person. With the use of Cardizem her rate has been controlled except for an episode over the course of the evening. Unfortunately, her blood pressure is low and so we are going to pursue digoxin loading. She is given one dose of IV digoxin and we will continue with another for a load of 0.5 mg in the patient. I have discontinued Cardizem. The patient did not tolerate flecainide very well. 2. The patient has chronic interstitial lung disease. 3. The patient has non tuberculosis mycobacterium, continuing her home regimen. 4. The patient has what would appear to be protein calorie malnutrition. Has been offered appetite supplements in the past for which she has never taken. 5. The patient has moderate to severe MR 6. The patient has deep vein thrombosis (DVT) prophylaxis ordered. I did discuss this case with the patient's daughter at bedside.
[2016-08-09 04:42] VITALS: BP 125/67
[2016-08-09 05:49] LABS: MEAN CORPUSCULAR HEMOGLOBIN 28.5 pg (27.0-33.0); MEAN CORPUSCULAR HGB CONC 32.3 g/dl (32.0-36.5); MEAN CORPUSCULAR VOLUME 88.1 fl (80.0-96.0); RED CELL DISTRIBUTION WIDTH 13.9 % (11.5-14.5); WHITE BLOOD COUNT 8.5 K/mm3 (4.0-10.0)
[2016-08-09 06:14] LABS: ALBUMIN 2.3 GM/DL (3.2-5.2); ALBUMIN/GLOBULIN RATIO 0.59 (1.00-1.93); ALKALINE PHOSPHATASE 70 U/L (45-117); ALT/SGPT 18 U/L (12-78); ANION GAP 6 MEQ/L (8-16); AST/SGOT 16 U/L (15-37); BILIRUBIN,TOTAL 0.3 MG/DL (0.2-1.0); BLOOD UREA NITROGEN 10 MG/DL (7-18); CALCIUM LEVEL 8.2 MG/DL (8.8-10.2); CARBON DIOXIDE LEVEL 33 MEQ/L (21-32); CHLORIDE LEVEL 104 MEQ/L (98-107); CREATININE FOR GFR 0.52 MG/DL (0.55-1.02); GLOMERULAR FILTRATION RATE > 60.0 (>32); GLUCOSE, FASTING 76 MG/DL (83-110); MAGNESIUM LEVEL 1.8 MG/DL (1.8-2.4); POTASSIUM SERUM 3.4 MEQ/L (3.5-5.1); SODIUM LEVEL 143 MEQ/L (136-145); TOTAL PROTEIN 6.2 GM/DL (6.4-8.2)
[2016-08-09] MEDS: FLUTICASONE HFA 44 MCG 10.6GM INHALER (FLOVENT) INH SCH ×2 (07:55→20:27)
[2016-08-09 08:00] VITALS: BP 127/71
[2016-08-09] MEDS: VITAMIN D 1,000 INTERNATIONAL UNITS TABLET PO SCH (08:32)
[2016-08-09] MEDS: ETHAMBUTOL 400MG TAB PO SCH (08:32)
[2016-08-09] MEDS: AZITHROMYCIN 250 MG TAB PO SCH (08:32)
[2016-08-09] MEDS: MULTIVITAMINS/MINERALS THERAP 1 TAB PO SCH (08:32)
[2016-08-09] MEDS: predniSONE 10 MG TAB PO SCH (08:32)
[2016-08-09] MEDS: DIGOXIN 0.125 MG TAB PO SCH (08:34)
[2016-08-09 12:00] VITALS: BP 116/58
[2016-08-09] MEDS ORDERED: POTASSIUM CHLORIDE 10 MEQ SR TABLET PO ONE (15:45)
[2016-08-09 16:00] VITALS: BP 112/56
[2016-08-09] MEDS ORDERED: diphenhydrAMINE INJ 50MG/ML VIAL (J1200) IV PRN (19:00)
[2016-08-09] MEDS ORDERED: MIRALAX *UNIT DOSE* 17GM PACKET PO PRN (19:00)
[2016-08-09 20:00] VITALS: BP 113/62
--- NOTE | 2016-08-09 20:13 | EDDOCDS ---
Physician Documentation [facility] Name: Loreto Adam Age: 86 yrs Sex: Female : 1930 Arrival Date: 08/07/2016 Time: 11:07 Bed Admit Hold Private MD: Ryan Romo M.D. Disposition: 08/07 13:00 Critical Care:. ml Disposition: 08/07/16 13:00 Hospitalization ordered by Nilam Lpoez for Inpatient Admission. Preliminary diagnosis is Palpitations - atrial flutter rapid vs svt. - Bed requested for PCU. - Status is Inpatient Admission. ml3 - Condition is Stable. - Problem is new. - Symptoms have improved. Historical: - Allergies: no known allergies; - Home Meds: 1. prednisone 5 mg Oral tab 2 tabs once daily 2. azithromycin 250 mg Oral cap daily 3. ethambutol 400 mg oral tab 2 tab once daily 4. Centrum Silver 400-250 mcg oral chew 5. Citracal Oral daily 6. cranberry 400 mg oral cap 7. Vitamin D Oral 8. qvar twice a day 80mg - PMHx: interstitial lung disease; nontuberculous myobacteria; Pneumonia; - PSHx: none; - Social history: Smoking status: Patient states was never smoker of tobacco. No barriers to communication noted, The patient speaks fluent Macedonian, Speaks appropriately for age. - Family history: Not pertinent. - : The pt / caregiver states he / she is not on anticoagulants. Home medication list is obtained from the patient, pill bottles. - Exposure Risk Screening:: None identified. Vital Signs: 11:09 BP 94 / 58; Pulse 46; Resp 16; Weight 34.93 kg / 77.01 lbs (R); Height 4 ft. 11 in. ct3 (149.86 cm) (R); 11:20 BP 124 / 88 (auto/); cjh 11:28 Pulse 156 MON; Pulse Ox 76% ; cjh 11:50 BP 120 / 73 (auto/); cjh 11:51 Pulse 152 MON; Pulse Ox 92% ; cjh 11:56 BP 112 / 73 (auto/); cjh 11:57 Pulse 150 MON; Pulse Ox 93% ; cjh 12:04 BP 107 / 55 (auto/); cjh 12:05 Pulse 84 MON; Pulse Ox 95% ; cjh 14:50 BP 102 / 56 (auto/); cjh 14:50 Pulse 74 MON; Pulse Ox 97% ; cjh 15:20 BP 100 / 57 (auto/); cjh 15:20 Pulse 72 MON; Pulse Ox 97% ; cjh 15:50 BP 96 / 52 (auto/); cjh 15:50 Pulse 78 MON; Pulse Ox 97% ; cjh 16:20 BP 101 / 58 (auto/); cjh 16:20 Pulse 72 MON; Pulse Ox 100% ; cjh 16:49 Pulse 70 MON; Pulse Ox 99% ; cjh 16:50 BP 104 / 55 (auto/); cjh 17:01 BP 101 / 55 (auto/); cjh 17:01 Pulse 72 MON; Pulse Ox 97% ; cjh 17:03 BP 101 / 55; Pulse 72; Resp 17; Temp 98.0(O); Pulse Ox 98% on 2.0 lpm NC; lr2 17:20 BP 96 / 58 (auto/); cjh 17:20 Pulse 70 MON; Pulse Ox 97% ; cjh 17:50 BP 114 / 61 (auto/); cjh 17:50 Pulse 74 MON; Pulse Ox 99% ; cjh 18:20 BP 101 / 54 (auto/); cjh 18:20 Pulse 76 MON; Pulse Ox 99% ; cjh 18:50 BP 98 / 53 (auto/); cjh 18:50 Pulse 70 MON; Pulse Ox 100% ; cjh 11:09 Body Mass Index 15.55 (34.93 kg, 149.86 cm) ct3 MDM: 11:17 ECG WITH READING ER PHYS+CARDIAG ordered. EDMS 11:19 IV Saline Lock ordered. ml 11:19 Improvement Spec/Pulse Ox/q 15 min VS ordered. ml 11:19 Rhythm Strip to chart ordered. ml 11:20 CBC with Diff Ordered. EDMS 11:20 MED Profile Ordered. EDMS 11:20 FreeT4 with TSH Ordered. EDMS 11:20 CIP Ordered. EDMS 11:20 Troponin Ordered. EDMS 11:21 Chest, 1 View Ordered. EDMS 11:39 Magnesium Level Ordered. EDMS 11:44 NS 0.9% 500 ml IV at bolus once ordered. ml 11:47 Diltiazem 10 mg IVP once; administer over 2 minutes ordered. ml 11:47 MAGNESIUM LEVEL Ordered. EDMS 12:03 ECG WITH READING ER PHYS+CARDIAG ordered. EDMS 12:22 Cardizem - Diltiazem 30 mg PO once ordered. ml 12:45 BED REQUEST+ADM ordered. EDMS 12:57 CBC with Diff Reviewed. ml 12:57 MED Profile Reviewed. ml 12:57 FreeT4 with TSH Reviewed. ml 12:57 CIP Reviewed. ml 12:57 Troponin Reviewed. ml 12:57 MAGNESIUM LEVEL Reviewed. ml 12:57 Chest, 1 View Reviewed. ml 12:59 Aspirin Chewable Tablet 324 mg PO once ordered. ml 13:27 Admission / Observation Status ordered. EDMS 13:50 Financial registration complete. lg 13:55 [facility] Payment Agreement was scanned into [employer] and attached to record. lg 15:23 REGULAR DIET ordered. EDMS 15:27 CARDIAC MARKER PANEL Ordered. EDMS 15:27 URINE CULTURE Ordered. EDMS 15:27 BLOOD CULTURES Ordered. EDMS 08/08 11:35 T-Sheet-- Draft Copy was scanned into [employer] and attached to record. 11:36 ECG/EKG was scanned into [employer] and attached to record. Administered Medications: 08/07 11:51 Drug: NS 0.9% 500 ml Route: IV; Rate: bolus; Site: left forearm; [facility] 12:00 Drug: Diltiazem 10 mg [diltiazem 5 mg/mL intravenous solution (2 mL)] {Note: [facility] administerd 5mg and rate decreased to 84 bpm. Provider informed, and EKG obtained, verbal order to hold additional 5mg.} Route: IVP; Site: left antecubital; 12:34 Drug: Cardizem - Diltiazem 30 mg [diltiazem 30 mg tablet (1 tabs)] Route: PO; [facility] 13:30 Drug: Aspirin 324 mg [aspirin 81 mg chewable tablet (4 tabs)] Route: PO; [facility] Critical Care Time: 13:00 Critical care time: Bedside Care: 90 minutes, Consultation: 10 minutes. Total time: 100 ml minutes Signatures: Dispatcher [employer] EDDE Arpit Sibley MD MD ml Jobson, Karen, DAKSHA RN Gertrude Rushing, Reg Reg gb Gerry Valladares, Reg Reg lg Jaja Jimenes, Procedure Manager Unit ml3 Octavia Carver,RN RN kr3 Harriet VillegasRN RN [facility] The chart was reviewed and I authenticate all verbal orders and agree with the evaluation and treatment provided.Attachments: 13:55 [facility] Payment Agreement lg 08/08 11:35 T-Sheet-- Draft Copy gb 11:36 ECG/EKG gb Chart Complete MTDD
--- NOTE | 2016-08-09 20:13 | EDDOCDS ---
Nurse's Notes [facility] Name: Loreto Adam Age: 86 yrs Sex: Female : 1930 Arrival Date: 08/07/2016 Time: 11:07 Bed Admit Hold Private MD: Ryan Romo M.D. Diagnosis: Palpitations-atrial flutter rapid vs svt Presentation: 08/07 11:23 Presenting complaint: Patient states: not feeling well for over 1 week. Reports balance kr3 has been off and today it was at its worse. Complains of palpitations on and off for many months. Adult Sepsis Screening: The patient does not have new or worsening altered mentation. Patient's respiratory rate is less than 22. Systolic blood pressure is greater than 100. Patient has a qSOFA score of 0- Negative Sepsis Screen. Suicide/Homicide risk assessment- the patient denies having any suicidal and/or homicidal ideations and does not present with any other emotional, behavioral or mental health complaints. Status: Patient is not a associate field service engineer or dependent. Transition of care: patient was not received from another setting of care. 11:23 Acuity: [place]OM[place] Level 2 kr3 11:23 Method Of Arrival: Wheelchair kr3 Triage Assessment: 11:46 General: Appears in no apparent distress, comfortable, Behavior is cooperative. Pain: kr3 Location: chest Pain currently is 5 out of 10 on a pain scale. Quality of pain is described as aching. The patient is triaged at the bedside. See Assessment in Nurses Notes section of ED record. Historical: - Allergies: no known allergies; - Home Meds: 1. prednisone 5 mg Oral tab 2 tabs once daily 2. azithromycin 250 mg Oral cap daily 3. ethambutol 400 mg oral tab 2 tab once daily 4. Centrum Silver 400-250 mcg oral chew 5. Citracal Oral daily 6. cranberry 400 mg oral cap 7. Vitamin D Oral 8. qvar twice a day 80mg - PMHx: interstitial lung disease; nontuberculous myobacteria; Pneumonia; - PSHx: none; - Social history: Smoking status: Patient states was never smoker of tobacco. No barriers to communication noted, The patient speaks fluent Uruguayan, Speaks appropriately for age. - Family history: Not pertinent. - : The pt / caregiver states he / she is not on anticoagulants. Home medication list is obtained from the patient, pill bottles. - Exposure Risk Screening:: None identified. Screenin:16 Infection Control. ct3 18:10 Screening information is obtained from the patient. Fall risk: At risk due to age. [facility] Assistance ADL's: requires no assistance with activities of daily living. Abuse/DV Screen: The patient / caregiver reports he/she is: not in a situation that causes fear, pain or injury. Nutritional screening: No deficits noted. Advance Directives: There is no active DNR order. home support is adequate. Assessment: 12:09 General: Appears in no apparent distress, comfortable, Behavior is appropriate for age, [facility] cooperative. Pain: Denies pain. Neurological: Level of Consciousness is awake, alert, Oriented to person, place, time. Cardiovascular: Rhythm is atrial fibrillation with rapid ventricular response. Respiratory: Airway is patent Respiratory effort is even, unlabored, Respiratory pattern is regular, symmetrical, Breath sounds are clear bilaterally. Derm: Skin is pale. Musculoskeletal: Range of motion intact in all extremities. 13:30 General: Appears in no apparent distress, comfortable, Behavior is appropriate for age, [facility] cooperative, resting quietly on stretcher, and daughter at bedside, taking medications without difficulty, awaiting dispo and information from provider. Cardiovascular: Rhythm is sinus rhythm. 14:30 General: quiet in room, awaiting dispo. [facility] 15:30 General: assisted with bedside commode via REAL ESTATE PROFESSOR staff, tolerates well. [facility] 16:30 General: Appears in no apparent distress, comfortable, Behavior is appropriate for age, [facility] cooperative, family at bedside, awaiting dispo. 18:10 General: Appears in no apparent distress, comfortable, Behavior is appropriate for age, [facility] cooperative. Pain: Denies pain. Neurological: Level of Consciousness is awake, alert, Oriented to person, place, time. Cardiovascular: Rhythm is sinus tachycardia. 18:59 General: awaiting admission, pending, no new problems or complaints. [facility] Vital Signs: 11:09 BP 94 / 58; Pulse 46; Resp 16; Weight 34.93 kg (R); Height 4 ft. 11 in. (149.86 cm) (R);ct3 11:20 BP 124 / 88 (auto/); h 11:28 Pulse 156 MON; Pulse Ox 76% ; cjh 11:50 BP 120 / 73 (auto/); cjh 11:51 Pulse 152 MON; Pulse Ox 92% ; cjh 11:56 BP 112 / 73 (auto/); cjh 11:57 Pulse 150 MON; Pulse Ox 93% ; cjh 12:04 BP 107 / 55 (auto/); cjh 12:05 Pulse 84 MON; Pulse Ox 95% ; cjh 14:50 BP 102 / 56 (auto/); cjh 14:50 Pulse 74 MON; Pulse Ox 97% ; cjh 15:20 BP 100 / 57 (auto/); cjh 15:20 Pulse 72 MON; Pulse Ox 97% ; cjh 15:50 BP 96 / 52 (auto/); cjh 15:50 Pulse 78 MON; Pulse Ox 97% ; cjh 16:20 BP 101 / 58 (auto/); cjh 16:20 Pulse 72 MON; Pulse Ox 100% ; cjh 16:49 Pulse 70 MON; Pulse Ox 99% ; cjh 16:50 BP 104 / 55 (auto/); cjh 17:01 BP 101 / 55 (auto/); cjh 17:01 Pulse 72 MON; Pulse Ox 97% ; cjh 17:03 BP 101 / 55; Pulse 72; Resp 17; Temp 98.0(O); Pulse Ox 98% on 2.0 lpm NC; lr2 17:20 BP 96 / 58 (auto/); cjh 17:20 Pulse 70 MON; Pulse Ox 97% ; cjh 17:50 BP 114 / 61 (auto/); cjh 17:50 Pulse 74 MON; Pulse Ox 99% ; cjh 18:20 BP 101 / 54 (auto/); cjh 18:20 Pulse 76 MON; Pulse Ox 99% ; cjh 18:50 BP 98 / 53 (auto/); cjh 18:50 Pulse 70 MON; Pulse Ox 100% ; cjh 11:09 Body Mass Index 15.55 (34.93 kg, 149.86 cm) ct3 Vitals: 11:09 Log In Time: August 07, 2016 at 10:07. ct3 11:09 RN notified that patient meets Red Flag criteria. ct3 ED Course: 11:09 Patient visited by Cecilia Hernandez PCA. ct3 11:09 Ryan Romo is Private Physician. ct3 11:09 Patient moved to Waiting ct3 11:15 Octavia Carver,DAKSHA is Primary Nurse. ct3 11:15 Patient moved to 19 ct3 11:22 EKG done. (by ED staff). Reviewed by Arpit Sibley MD. ar3 11:24 Triage Initiated kr3 11:27 Patient moved to 4 kpj 11:28 Arpit Sibley MD is Attending Physician. ml 11:28 Patient visited by Arpit Sibley MD. ml 11:31 Patient visited by Medina Carrillo PCA. ar3 11:46 Inserted saline lock: 22 gauge in left forearm The patient tolerated the procedure well.kr3 12:08 MAGNESIUM LEVEL Sent. cjh 12:08 Troponin Sent. cjh 12:08 CIP Sent. cj 12:08 FreeT4 with TSH Sent. [facility] 12:08 MED Profile Sent. cjh 12:35 Patient visited by Harriet Villegas RN. cj 12:45 Chest, 1 View Returned. EDMS 13:00 Nilam Lopez is Hospitalizing Provider. ml 13:31 Patient visited by Harriet Villegas RN. cj 13:55 [facility] Payment Agreement was scanned into [employer] and attached to record. lg 14:22 Chest, 1 View Returned. EDMS 14:51 Patient moved to 13 rs6 16:20 Patient moved to Admit Hold kp 17:43 Patient visited by Medina Carrillo PCA. ar3 18:10 The patient / caregiver is instructed regarding the plan of care and ED course. cj 18:10 No procedures done that require assistance. cj 18:11 Patient visited by Pam Vitale RN. ld5 08/08 11:35 T-Sheet-- Draft Copy was scanned into [employer] and attached to record. gb 11:36 ECG/EKG was scanned into [employer] and attached to record. gb Administered Medications: 08/07 11:51 Drug: NS 0.9% 500 ml Route: IV; Rate: bolus; Site: left forearm; [facility] 12:00 Drug: Diltiazem 10 mg [diltiazem 5 mg/mL intravenous solution (2 mL)] {Note: cj administerd 5mg and rate decreased to 84 bpm. Provider informed, and EKG obtained, verbal order to hold additional 5mg.} Route: IVP; Site: left antecubital; 12:34 Drug: Cardizem - Diltiazem 30 mg [diltiazem 30 mg tablet (1 tabs)] Route: PO; [facility] 13:30 Drug: Aspirin 324 mg [aspirin 81 mg chewable tablet (4 tabs)] Route: PO; [facility] Order Results: Lab Order: CBC with Diff; SPEC'M 08/07/16 11:41 Test: WHITE BLOOD COUNT; Value: 17.6; Range: 4.0-10.0; Abnormal: Above high normal; Units: K/mm3; Status: F Test: RED BLOOD COUNT; Value: 4.58; Range: 4.00-5.40; Units: M/mm3; Status: F Test: HEMOGLOBIN; Value: 12.9; Range: 12.0-16.0; Units: g/dl; Status: F Test: HEMATOCRIT; Value: 40.9; Range: 36.0-47.0; Units: %; Status: F Test: MEAN CORPUSCULAR VOLUME; Value: 89.2; Range: 80.0-96.0; Units: fl; Status: F Test: MEAN CORPUSCULAR HEMOGLOBIN; Value: 28.1; Range: 27.0-33.0; Units: pg; Status: F Test: MEAN CORPUSCULAR HGB CONC; Value: 31.5; Range: 32.0-36.5; Abnormal: Below low normal; Units: g/dl; Status: F Test: RED CELL DISTRIBUTION WIDTH; Value: 13.8; Range: 11.5-14.5; Units: %; Status: F Test: PLATELET COUNT, AUTOMATED; Value: 430; Range: 150-450; Units: k/mm3; Status: F Test: NEUTROPHILS %; Value: 89.2; Range: 36.0-66.0; Abnormal: Above high normal; Units: %; Status: F Test: LYMPH %; Value: 4.7; Range: 24.0-44.0; Abnormal: Below low normal; Units: %; Status: F Test: MONO %; Value: 4.2; Range: 0.0-5.0; Units: %; Status: F Test: EOS %; Value: 1.1; Range: 0.0-3.0; Units: %; Status: F Test: BASO %; Value: 0.3; Range: 0.0-1.0; Units: %; Status: F Test: LARGE UNSTAINED CELL %; Value: 0.6; Range: 0.0-4.0; Units: %; Status: F Test: NEUTROPHILS #; Value: 15.7; Range: 1.8-7.7; Abnormal: Above high normal; Units: K/mm3; Status: F Test: LYMPH #; Value: 0.9; Range: 1.5-4.5; Abnormal: Below low normal; Units: K/mm3; Status: F Test: MONO #; Value: 0.7; Range: 0.0-0.8; Units: K/mm3; Status: F Test: EOS #; Value: 0.2; Range: 0.0-0.50; Units: K/mm3; Status: F Test: BASO #; Value: 0.0; Range: 0.0-0.2; Units: K/mm3; Status: F Test: LARGE UNSTAINED CELL #; Value: 0.1; Range: 0.0-0.4; Units: K/mm3; Status: F Lab Order: MED Profile; [facility]' 08/07/16 11:40 Test: GLUCOSE, FASTING; Value: 154; Range: 83-110; Abnormal: Above high normal; Units: MG/DL; Status: F Test: BLOOD UREA NITROGEN; Value: 25; Range: 7-18; Abnormal: Above high normal; Units: MG/DL; Status: F Test: CREATININE FOR GFR; Value: 0.80; Range: 0.55-1.02; Units: MG/DL; Status: F Test: GLOMERULAR FILTRATION RATE; Value: > 60.0; Range: >32; Status: F Test: SODIUM LEVEL; Value: 141; Range: 136-145; Units: MEQ/L; Status: F Test: POTASSIUM SERUM; Value: 4.4; Range: 3.5-5.1; Units: MEQ/L; Status: F Test: CHLORIDE LEVEL; Value: 100; Range: 98-107; Units: MEQ/L; Status: F Test: CARBON DIOXIDE LEVEL; Value: 31; Range: 21-32; Units: MEQ/L; Status: F Test: ANION GAP; Value: 10; Range: 8-16; Units: MEQ/L; Status: F Test: CALCIUM LEVEL; Value: 9.5; Range: 8.8-10.2; Units: MG/DL; Status: F Test Note: ; Units are mL/min/1.73 m2 Chronic Kidney Disease Staging per NKF: Stage I & II GFR >=60 Normal to Mildly Decreased Stage III GFR 30-59 Moderately Decreased Stage IV GFR 15-29 Severely Decreased Stage V GFR <15 Very Little GFR Left ESRD GFR <15 on SPANISH INSTRUCTOR Lab Order: FreeT4 with TSH; SPEC'08/07/16 11:40 Test: THYROID STIMULATING HORMONE; Value: 4.610; Range: 0.358-3.740; Abnormal: Above high normal; Units: uIU/ML; Status: F Test: FREE T4; Value: 1.14; Range: 0.76-1.46; Units: NG/DL; Status: F Lab Order: CIP; SPEC'08/07/16 11:40 Test: CPK CREATINE PHOSPHOKINASE; Value: 45; Range: 26-192; Units: U/L; Status: F Test: CK-MB VALUE MASS; Value: 1.9; Range: 0.0-3.6; Units: NG/ML; Status: F Test: MB/CK RELATIVE INDEX; Value: 4.22; Range: < OR =4; Abnormal: Above high normal; Status: F Test Note: ; DIAGNOSIS CRITERIA MMB ng/ml Relative Index (RI) NON-AMI < or = 5 N/A GIL [place]ONE > 5 < or = 4 AMI > 5 > 4 Lab Order: Troponin; SPEC'08/07/16 11:40 Test: TROPONIN I; Value: 0.17; Range: < 0.10; Abnormal: Above high normal; Units: NG/ML; Status: F Test Note: ; Troponin I Reference Interval for [place] LOCI: 99th Percentile= 0.00-0.045 ng/ml Risk Stratification: <= 0.10 ng/ml Decreased Risk for Adverse Clinical Events. 0.10-1.50 ng/ml Increased Risk for Adverse Clinical Events. Evaluation of additional criterion and/or repeat testing in 2-6 hours is suggested to rule out myocardial damage. >= 1.50 ng/ml Indicative of Myocardial Injury. Lab Order: MAGNESIUM LEVEL; SPEC'M 08/07/16 11:40 Test: MAGNESIUM LEVEL; Value: 1.9; Range: 1.8-2.4; Units: MG/DL; Status: F Lab Order: CARDIAC MARKER PANEL; SPEC'M 08/07/16 18:18 Test: CPK CREATINE PHOSPHOKINASE; Value: 34; Range: 26-192; Units: U/L; Status: F Test: CK-MB VALUE MASS; Value: 1.3; Range: 0.0-3.6; Units: NG/ML; Status: F Test: MB/CK RELATIVE INDEX; Value: 3.82; Range: < OR =4; Status: F Test: TROPONIN I; Value: 0.10; Range: < 0.10; Abnormal: Delta; Units: NG/ML; Status: F Test Note: ; DIAGNOSIS CRITERIA MMB ng/ml Relative Index (RI) NON-AMI < or = 5 N/A GIL ZONE > 5 < or = 4 AMI > 5 > 4 Radiology Order: Chest, 1 View Test: Chest, 1 View REASON FOR EXAMINATION: palpitatins; PORTABLE CHEST:; ; AP portable view of the chest is performed and compared with multiple prior; exams, most recently 03/07/2016 and 01/17/2016.; ; 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 No definite; acute infiltrate is seen. The heart appears mildly enlarged. Mediastinal; silhouette is unchanged.; ; IMPRESSION:; ; Stable chronic fibrotic changes. No definite acute infiltrate.; ; ; Signed by; Florin Gil MD 08/07/2016 02:20 P; Outcome: 13:00 Decision to Hospitalize by Provider. ml 18:10 Discharge Assessment: Patient awake, alert and oriented x 3. No cognitive and/or cjh functional deficits noted. Patient verbalized understanding of disposition instructions. patient administered narcotics - no. The following High Risk Discharge criteria are identified: None. Admitted to PCU. Condition: stable. No special radiology studies were completed. Property :Personal belongings accompany Pt. 19:12 Patient left the ED. ml3 Signatures: Dispatcher [employer] EDRI Arpit Sibley MD MD ml Jobson, Karen, RN RN Gertrude Rushing Reg Reg gb Ganter, LoriLee, Reg Reg lg Jaja Jimenes, Safety Counselor Unit ml3 Octavia Carver,RN RN kr3 Mednia Carrillo, REAL ESTATE PROFESSOR REAL ESTATE PROFESSOR ar3 Pam Vitale,RN RN ld5 David, Cecilia, REAL ESTATE PROFESSOR REAL ESTATE PROFESSOR ct3 Harriet Villegas,RN RN cjh Matt, Teresita, REAL ESTATE PROFESSOR REAL ESTATE PROFESSOR rs6 Pam Pedraza lr2 Corrections: (The following items were deleted from the chart) 18:13 18:10 CT Study completed. [facility] Chart Complete MTDD
--- NOTE | 2016-08-09 20:13 | EDDOCDS ---
Physician Documentation [facility] Name: Loreto Adam Age: 86 yrs Sex: Female : 1930 Arrival Date: 08/07/2016 Time: 11:07 Bed Admit Hold Private MD: Ryan Romo M.D. Disposition: 08/07 13:00 Critical Care:. ml Disposition: 08/07/16 13:00 Hospitalization ordered by Nilam Lopez for Inpatient Admission. Preliminary diagnosis is Palpitations - atrial flutter rapid vs svt. - Bed requested for PCU. - Status is Inpatient Admission. ml3 - Condition is Stable. - Problem is new. - Symptoms have improved. Historical: - Allergies: no known allergies; - Home Meds: 1. prednisone 5 mg Oral tab 2 tabs once daily 2. azithromycin 250 mg Oral cap daily 3. ethambutol 400 mg oral tab 2 tab once daily 4. Centrum Silver 400-250 mcg oral chew 5. Citracal Oral daily 6. cranberry 400 mg oral cap 7. Vitamin D Oral 8. qvar twice a day 80mg - PMHx: interstitial lung disease; nontuberculous myobacteria; Pneumonia; - PSHx: none; - Social history: Smoking status: Patient states was never smoker of tobacco. No barriers to communication noted, The patient speaks fluent Khmer, Speaks appropriately for age. - Family history: Not pertinent. - : The pt / caregiver states he / she is not on anticoagulants. Home medication list is obtained from the patient, pill bottles. - Exposure Risk Screening:: None identified. Vital Signs: 11:09 BP 94 / 58; Pulse 46; Resp 16; Weight 34.93 kg / 77.01 lbs (R); Height 4 ft. 11 in. ct3 (149.86 cm) (R); 11:20 BP 124 / 88 (auto/); cjh 11:28 Pulse 156 MON; Pulse Ox 76% ; cjh 11:50 BP 120 / 73 (auto/); cjh 11:51 Pulse 152 MON; Pulse Ox 92% ; cjh 11:56 BP 112 / 73 (auto/); cjh 11:57 Pulse 150 MON; Pulse Ox 93% ; cjh 12:04 BP 107 / 55 (auto/); cjh 12:05 Pulse 84 MON; Pulse Ox 95% ; cjh 14:50 BP 102 / 56 (auto/); cjh 14:50 Pulse 74 MON; Pulse Ox 97% ; cjh 15:20 BP 100 / 57 (auto/); cjh 15:20 Pulse 72 MON; Pulse Ox 97% ; cjh 15:50 BP 96 / 52 (auto/); cjh 15:50 Pulse 78 MON; Pulse Ox 97% ; cjh 16:20 BP 101 / 58 (auto/); cjh 16:20 Pulse 72 MON; Pulse Ox 100% ; cjh 16:49 Pulse 70 MON; Pulse Ox 99% ; cjh 16:50 BP 104 / 55 (auto/); cjh 17:01 BP 101 / 55 (auto/); cjh 17:01 Pulse 72 MON; Pulse Ox 97% ; cjh 17:03 BP 101 / 55; Pulse 72; Resp 17; Temp 98.0(O); Pulse Ox 98% on 2.0 lpm NC; lr2 17:20 BP 96 / 58 (auto/); cjh 17:20 Pulse 70 MON; Pulse Ox 97% ; cjh 17:50 BP 114 / 61 (auto/); cjh 17:50 Pulse 74 MON; Pulse Ox 99% ; cjh 18:20 BP 101 / 54 (auto/); cjh 18:20 Pulse 76 MON; Pulse Ox 99% ; cjh 18:50 BP 98 / 53 (auto/); cjh 18:50 Pulse 70 MON; Pulse Ox 100% ; cjh 11:09 Body Mass Index 15.55 (34.93 kg, 149.86 cm) ct3 MDM: 11:17 ECG WITH READING ER PHYS+CARDIAG ordered. EDMS 11:19 IV Saline Lock ordered. ml 11:19 Traveling Repair Accountant/Pulse Ox/q 15 min VS ordered. ml 11:19 Rhythm Strip to chart ordered. ml 11:20 CBC with Diff Ordered. EDMS 11:20 MED Profile Ordered. EDMS 11:20 FreeT4 with TSH Ordered. EDMS 11:20 CIP Ordered. EDMS 11:20 Troponin Ordered. EDMS 11:21 Chest, 1 View Ordered. EDMS 11:39 Magnesium Level Ordered. EDMS 11:44 NS 0.9% 500 ml IV at bolus once ordered. ml 11:47 Diltiazem 10 mg IVP once; administer over 2 minutes ordered. ml 11:47 MAGNESIUM LEVEL Ordered. EDMS 12:03 ECG WITH READING ER PHYS+CARDIAG ordered. EDMS 12:22 Cardizem - Diltiazem 30 mg PO once ordered. ml 12:45 BED REQUEST+ADM ordered. EDMS 12:57 CBC with Diff Reviewed. ml 12:57 MED Profile Reviewed. ml 12:57 FreeT4 with TSH Reviewed. ml 12:57 CIP Reviewed. ml 12:57 Troponin Reviewed. ml 12:57 MAGNESIUM LEVEL Reviewed. ml 12:57 Chest, 1 View Reviewed. ml 12:59 Aspirin Chewable Tablet 324 mg PO once ordered. ml 13:27 Admission / Observation Status ordered. EDMS 13:50 Financial registration complete. lg 13:55 [facility] Payment Agreement was scanned into [employer] and attached to record. lg 15:23 REGULAR DIET ordered. EDMS 15:27 CARDIAC MARKER PANEL Ordered. EDMS 15:27 URINE CULTURE Ordered. EDMS 15:27 BLOOD CULTURES Ordered. EDMS 08/08 11:35 T-Sheet-- Draft Copy was scanned into [employer] and attached to record. 11:36 ECG/EKG was scanned into [employer] and attached to record. Administered Medications: 08/07 11:51 Drug: NS 0.9% 500 ml Route: IV; Rate: bolus; Site: left forearm; [facility] 12:00 Drug: Diltiazem 10 mg [diltiazem 5 mg/mL intravenous solution (2 mL)] {Note: [facility] administerd 5mg and rate decreased to 84 bpm. Provider informed, and EKG obtained, verbal order to hold additional 5mg.} Route: IVP; Site: left antecubital; 12:34 Drug: Cardizem - Diltiazem 30 mg [diltiazem 30 mg tablet (1 tabs)] Route: PO; [facility] 13:30 Drug: Aspirin 324 mg [aspirin 81 mg chewable tablet (4 tabs)] Route: PO; [facility] Critical Care Time: 13:00 Critical care time: Bedside Care: 90 minutes, Consultation: 10 minutes. Total time: 100 ml minutes Signatures: Dispatcher [employer] EDAK Arpit Sibley MD MD ml Jobson, Karen, DAKSHA RN Gertrude Rushing, Reg Reg gb Gerry Valladares, Reg Reg lg Jaja Jimenes, Agency Director Unit ml3 Octavia Carver,RN RN kr3 Harriet VillegasRN RN [facility] The chart was reviewed and I authenticate all verbal orders and agree with the evaluation and treatment provided.Attachments: 13:55 [facility] Payment Agreement lg 08/08 11:35 T-Sheet-- Draft Copy gb 11:36 ECG/EKG gb Chart Complete MTDD
[2016-08-09] MEDS: ACETAMINOPHEN TAB 650MG DOSE (2X325MG) PO PRN (20:16)
--- NOTE | 2016-08-09 21:30 | IPN ---
DATE: 08/09/2016 Patient is feeling well this morning. There are no complaints of pain, chest pain. No sensation of palpitations. Admits that she is sad about the loss of her daughter. Temperature is 96.3, pulse 87, respirations 18, blood pressure 112/56, 100% on 2 liters nasal cannula. Intake and output notable for a positive fluid balance of 1110. No bowel movements noted yesterday. She is awake, appropriately interactive, pleasant conversant. Frail appearing. Mucous membranes moist. Neck supple. Breathing is symmetrical rested. Heart is distant sounding. Normal S1, S2. There were episodes of tachycardia noted on monitor last evening. Abdomen soft, doughy, nontender. White cell count 8.5, hemoglobin 10, platelets 373. Potassium 3.4, creatinine 0.52. Blood culture negative at 4 hours. ASSESSMENT: An 86-year-old with atrial flutter and rapid ventricular response, which is currently controlled PLAN: 1. Cardiovascular. I have discussed this case with Dr. Lal in person this morning. We are using digoxin. We discussed the dose. Will continue to monitor on telemetry. 2. Patient has chronic interstitial lung disease. 3. Patient has non-tuberculous mycobacterium. Continue on home regimen of antibiotics. 4. Patient has protein calorie malnutrition. She has declined appetite supplements. Will use chocolate Ensure. 5. Patient has moderate to severe mitral regurgitation (MR). 6. Patient has deep vein thrombosis (DVT) prophylaxis. 7. Patient likely has an element of depression based on the loss of her daughter. Did discuss the case in general with the patient's primary care physician.
[2016-08-10] VITALS: BP 123/67
[2016-08-10 04:00] VITALS: BP 137/71
--- NOTE | 2016-08-10 04:35 | IPN ---
DATE: 08/09/2016 Mrs. Loreto Adam was seen this evening, she was sitting up in bed in no acute distress at rest. She denies any chest pain. She stated that she has not been ambulating much today and most of the time she was in bed, but she was sitting in the chair. She denies any dizziness. She has no fever or chills. She has no focal manifestation. She had one episode of paroxysmal supraventricular tachycardia last night. She was started on digoxin early yesterday. It seemed that during the day, there was no supraventricular tachycardia (SVT). PHYSICAL EXAMINATION: Patient is alert and oriented, in no acute distress at rest. Her last vital signs revealed a blood pressure of 113/62 with a pulse of 81, respirations 18, and her temperature is 97.2 degrees Fahrenheit with an oxygen saturation of 97-100% on 2 liter nasal cannula. She is in a positive balance of about 1.1 liters. Examination of the head, ears, eyes, nose and throat: Atraumatic. Neck is supple with extended jugular. The lungs did not reveal any wheezing. Minimal dry crackles. The heart examination revealed normal S1 and S2 without gallops. The point of maximal impulse (PMI) is not displaced. There is no rub. There is a systolic murmur over the precordium laterally at the apex with minimal radiation to the axilla. Abdomen is unremarkable. Extremities reveal no pedal edema. Neurological examination is negative for focal deficit. LABORATORIES: CBC done today revealed a WBC of 8.5, hemoglobin 10.0, hematocrit 30.8, and platelets 373,000. BMP revealed a sodium of 143, potassium 3.4, chloride 104, CO2 33, BUN 10, creatinine 0.52, GFR more than 60, fasting glucose 76, and calcium 8.1. Serum magnesium is 1.8. Liver enzymes reveal a total bilirubin of 0.3, AST 16, ALT 18, alkaline phosphatase 70, total protein 6.2, albumin 2.3. Serum troponin remains negative. IMPRESSION: 1. Supraventricular tachycardia in this 86-year-old woman with a history of mitral valve prolapse that is significant, but with a normal global left ventricular systolic function. She was initially started on Cardizem, but she could not tolerate it because of low blood pressure. She also in the past was on flecainide, but she was not taking it because she could not tolerate it at home and she does not want to restart it. Case was discussed this morning with her hospitalist and we will continue the digoxin for now and she will be monitored on telemetry. 2. Mitral valve prolapse, severe with a normal global left ventricular sytolic function. High risk for supraventricular tachycardia. 3. History of chronic interstitial lung disease. 4. History of non-tuberculosis mycobacterium, being addressed, on treatment. It was a pleasure to participate in the care of Mrs. Loreto Adam for her underlying cardiac condition. I will continue to monitor along with you as needed while in the hospital. Please do not hesitate to call if any questions. ANGEL LUISD
[2016-08-10 05:43] LABS: MEAN CORPUSCULAR HEMOGLOBIN 28.5 pg (27.0-33.0); MEAN CORPUSCULAR HGB CONC 32.2 g/dl (32.0-36.5); MEAN CORPUSCULAR VOLUME 88.8 fl (80.0-96.0); RED CELL DISTRIBUTION WIDTH 13.8 % (11.5-14.5); WHITE BLOOD COUNT 8.5 K/mm3 (4.0-10.0)
[2016-08-10 06:01] LABS: ALBUMIN 2.4 GM/DL (3.2-5.2); ALBUMIN/GLOBULIN RATIO 0.62 (1.00-1.93); ALKALINE PHOSPHATASE 83 U/L (45-117); ALT/SGPT 20 U/L (12-78); ANION GAP 3 MEQ/L (8-16); AST/SGOT 26 U/L (15-37); BILIRUBIN,TOTAL 0.2 MG/DL (0.2-1.0); BLOOD UREA NITROGEN 15 MG/DL (7-18); CALCIUM LEVEL 8.5 MG/DL (8.8-10.2); CARBON DIOXIDE LEVEL 39 MEQ/L (21-32); CHLORIDE LEVEL 100 MEQ/L (98-107); CREATININE FOR GFR 0.53 MG/DL (0.55-1.02); GLOMERULAR FILTRATION RATE > 60.0 (>32); GLUCOSE, FASTING 79 MG/DL (83-110); POTASSIUM SERUM 3.9 MEQ/L (3.5-5.1); SODIUM LEVEL 142 MEQ/L (136-145); TOTAL PROTEIN 6.3 GM/DL (6.4-8.2)
[2016-08-10] MEDS: FLUTICASONE HFA 44 MCG 10.6GM INHALER (FLOVENT) INH SCH ×2 (07:15→21:55)
[2016-08-10 08:00] VITALS: BP 124/92
[2016-08-10] MEDS: MULTIVITAMINS/MINERALS THERAP 1 TAB PO SCH (09:10)
[2016-08-10] MEDS: DIGOXIN 0.125 MG TAB PO SCH (09:11)
[2016-08-10] MEDS: predniSONE 10 MG TAB PO SCH (09:11)
[2016-08-10] MEDS: AZITHROMYCIN 250 MG TAB PO SCH (09:11)
[2016-08-10] MEDS: VITAMIN D 1,000 INTERNATIONAL UNITS TABLET PO SCH (09:11)
[2016-08-10] MEDS: ETHAMBUTOL 400MG TAB PO SCH (09:11)
[2016-08-10 12:00] VITALS: BP 138/58
[2016-08-10 16:00] VITALS: BP 104/61
--- NOTE | 2016-08-10 16:57 | IPN ---
DATE: 08/10/2016 Ms. Adam is awake and appropriate interactive, sitting at the bedside. Initially sleepy upon my arrival. No complaints of pain, chest pain, shortness of breath. Tolerating a diet. Has been drinking chocolate Ensure. Is still not very hungry. Is open to the idea of starting an antidepressant. She has been trialed on antidepressants as an outpatient, including Wellbutrin and mirtazapine. Temperature is 95.8, pulse 67, respirations 28, blood pressure 138/58, 96% on room air. Intake and output notable for a negative fluid balance of -240. Bowel movements two. Today weight is 33 kg, body mass index 14.7. She is awake, appropriately interactive. Somewhat flattened affect. Mucous membranes moist. Neck supple. Breathing symmetrical, somewhat diminished. Heart is distant sounding. Normal S1, S2. No significant arrhythmia on the monitor. Abdomen soft, doughy, nontender. White cell count 8.5, hemoglobin 11, platelets of 414. BUN 15, creatinine 0.53. Blood cultures negative at 72 hours. ASSESSMENT: This is an 86-year-old with atrial flutter and rapid ventricular response, which is currently controlled on digoxin. PLAN: 1. Cardiovascular. I again discussed this case with Dr. Lal yesterday. We are currently using digoxin, bearing in mind that the patient is on azithromycin. Patient did not tolerate Cardizem based on blood pressure. Would not tolerate beta axel based on underlying lung disease and did not tolerate flecainide based on the side effects. Heart rate is currently controlled. We are monitoring her on telemetry currently. 2. Patient has depression, most likely exacerbated by the recent of her daughter. Will again attempt antidepressant therapy in the hopes that antidepressant therapy, if successful, will also encourage her appetite. 3. Patient had chronic interstitial lung disease. 4. Patient has nontuberculous mycobacteria. Continuing home regimen of antibiotics. She will be on this regimen of antibiotics until about April of 2017. 5. Patient has protein calorie malnutrition. Encouraging the use of chocolate Ensure. 6. Patient has moderate to severe mitral regurgitation. 7. Patient has deep vein thrombosis (DVT) prophylaxis. 8. Patient does have insomnia. Will make a small dose of trazodone available to her today.
[2016-08-10] MEDS ORDERED: MOM 30ML SUSPENSION UDC PO PRN (18:45)
[2016-08-10 20:00] VITALS: BP 111/63
[2016-08-10] MEDS: diphenhydrAMINE 12.5MG/5ML ELIXIR UDC PO PRN (21:23)
[2016-08-10] MEDS: SENOKOT S TAB PO SCH (21:23)
[2016-08-10] MEDS: PARoxetine 10MG TABLET PO SCH (21:42)
[2016-08-11] VITALS (7 sets, daily range): BP systolic 108–123; BP diastolic 56–65
[2016-08-11 04:58] LABS: MEAN CORPUSCULAR HEMOGLOBIN 28.4 pg (27.0-33.0); MEAN CORPUSCULAR HGB CONC 32.3 g/dl (32.0-36.5); MEAN CORPUSCULAR VOLUME 87.9 fl (80.0-96.0); RED CELL DISTRIBUTION WIDTH 13.8 % (11.5-14.5); WHITE BLOOD COUNT 10.9 K/mm3 (4.0-10.0)
[2016-08-11 05:06] LABS: ALBUMIN 2.5 GM/DL (3.2-5.2); ALBUMIN/GLOBULIN RATIO 0.64 (1.00-1.93); ALKALINE PHOSPHATASE 92 U/L (45-117); ALT/SGPT 28 U/L (12-78); ANION GAP 3 MEQ/L (8-16); AST/SGOT 31 U/L (15-37); BILIRUBIN,TOTAL 0.2 MG/DL (0.2-1.0); BLOOD UREA NITROGEN 19 MG/DL (7-18); CALCIUM LEVEL 8.6 MG/DL (8.8-10.2); CARBON DIOXIDE LEVEL 38 MEQ/L (21-32); CHLORIDE LEVEL 98 MEQ/L (98-107); CREATININE FOR GFR 0.42 MG/DL (0.55-1.02); GLOMERULAR FILTRATION RATE > 60.0 (>32); GLUCOSE, FASTING 85 MG/DL (83-110); SODIUM LEVEL 139 MEQ/L (136-145); TOTAL PROTEIN 6.4 GM/DL (6.4-8.2)
[2016-08-11 07:06] LABS: DIGOXIN LEVEL 0.9 NG/ML (0.5-2.0)
[2016-08-11] MEDS: FLUTICASONE HFA 44 MCG 10.6GM INHALER (FLOVENT) INH SCH ×2 (07:17→21:06)
[2016-08-11] MEDS: DIGOXIN 0.125 MG TAB PO SCH (09:00)
[2016-08-11] MEDS: predniSONE 10 MG TAB PO SCH (09:00)
[2016-08-11] MEDS: SENOKOT S TAB PO SCH ×2 (09:00→21:00)
[2016-08-11] MEDS: MULTIVITAMINS/MINERALS THERAP 1 TAB PO SCH (09:00)
[2016-08-11] MEDS: ETHAMBUTOL 400MG TAB PO SCH (09:00)
[2016-08-11] MEDS: AZITHROMYCIN 250 MG TAB PO SCH (09:00)
[2016-08-11] MEDS: VITAMIN D 1,000 INTERNATIONAL UNITS TABLET PO SCH (09:00)
--- NOTE | 2016-08-11 13:41 | EDDOCDS ---
Physician Documentation Name: Loreto Adam Age: 86 yrs Sex: Female : 1930 Arrival Date: 08/07/2016 Time: 11:07 Bed Admit Hold Private MD: Ryan Romo M.D. Disposition: 08/07 13:00 Critical Care:. ml Disposition: 08/07/16 13:00 Hospitalization ordered by Nilam Lopez for Inpatient Admission. Preliminary diagnosis is Palpitations - atrial flutter rapid vs svt. - Bed requested for PCU. - Status is Inpatient Admission. ml3 - Condition is Stable. - Problem is new. - Symptoms have improved. Historical: - Allergies: no known allergies; - Home Meds: 1. prednisone 5 mg Oral tab 2 tabs once daily 2. azithromycin 250 mg Oral cap daily 3. ethambutol 400 mg oral tab 2 tab once daily 4. Centrum Silver 400-250 mcg oral chew 5. Citracal Oral daily 6. cranberry 400 mg oral cap 7. Vitamin D Oral 8. qvar twice a day 80mg - PMHx: interstitial lung disease; nontuberculous myobacteria; Pneumonia; - PSHx: none; - Social history: Smoking status: Patient states was never smoker of tobacco. No barriers to communication noted, The patient speaks fluent Nepali, Speaks appropriately for age. - Family history: Not pertinent. - : The pt / caregiver states he / she is not on anticoagulants. Home medication list is obtained from the patient, pill bottles. - Exposure Risk Screening:: None identified. Vital Signs: 11:09 BP 94 / 58; Pulse 46; Resp 16; Weight 34.93 kg / 77.01 lbs (R); Height 4 ft. 11 in. ct3 (149.86 cm) (R); 11:20 BP 124 / 88 (auto/); cjh 11:28 Pulse 156 MON; Pulse Ox 76% ; cjh 11:50 BP 120 / 73 (auto/); cjh 11:51 Pulse 152 MON; Pulse Ox 92% ; cjh 11:56 BP 112 / 73 (auto/); cjh 11:57 Pulse 150 MON; Pulse Ox 93% ; cjh 12:04 BP 107 / 55 (auto/); cjh 12:05 Pulse 84 MON; Pulse Ox 95% ; cjh 14:50 BP 102 / 56 (auto/); cjh 14:50 Pulse 74 MON; Pulse Ox 97% ; cjh 15:20 BP 100 / 57 (auto/); cjh 15:20 Pulse 72 MON; Pulse Ox 97% ; cjh 15:50 BP 96 / 52 (auto/); cjh 15:50 Pulse 78 MON; Pulse Ox 97% ; cjh 16:20 BP 101 / 58 (auto/); cjh 16:20 Pulse 72 MON; Pulse Ox 100% ; cjh 16:49 Pulse 70 MON; Pulse Ox 99% ; cjh 16:50 BP 104 / 55 (auto/); cjh 17:01 BP 101 / 55 (auto/); cjh 17:01 Pulse 72 MON; Pulse Ox 97% ; cjh 17:03 BP 101 / 55; Pulse 72; Resp 17; Temp 98.0(O); Pulse Ox 98% on 2.0 lpm NC; lr2 17:20 BP 96 / 58 (auto/); cjh 17:20 Pulse 70 MON; Pulse Ox 97% ; cjh 17:50 BP 114 / 61 (auto/); cjh 17:50 Pulse 74 MON; Pulse Ox 99% ; cjh 18:20 BP 101 / 54 (auto/); cjh 18:20 Pulse 76 MON; Pulse Ox 99% ; cjh 18:50 BP 98 / 53 (auto/); cjh 18:50 Pulse 70 MON; Pulse Ox 100% ; cjh 11:09 Body Mass Index 15.55 (34.93 kg, 149.86 cm) ct3 MDM: 11:17 ECG WITH READING ER PHYS+CARDIAG ordered. EDMS 11:19 IV Saline Lock ordered. ml 11:19 Saddle Cutter/Pulse Ox/q 15 min VS ordered. ml 11:19 Rhythm Strip to chart ordered. ml 11:20 CBC with Diff Ordered. EDMS 11:20 MED Profile Ordered. EDMS 11:20 FreeT4 with TSH Ordered. EDMS 11:20 CIP Ordered. EDMS 11:20 Troponin Ordered. EDMS 11:21 Chest, 1 View Ordered. EDMS 11:39 Magnesium Level Ordered. EDMS 11:44 NS 0.9% 500 ml IV at bolus once ordered. ml 11:47 Diltiazem 10 mg IVP once; administer over 2 minutes ordered. ml 11:47 MAGNESIUM LEVEL Ordered. EDMS 12:03 ECG WITH READING ER PHYS+CARDIAG ordered. EDMS 12:22 Cardizem - Diltiazem 30 mg PO once ordered. ml 12:45 BED REQUEST+ADM ordered. EDMS 12:57 CBC with Diff Reviewed. ml 12:57 MED Profile Reviewed. ml 12:57 FreeT4 with TSH Reviewed. ml 12:57 CIP Reviewed. ml 12:57 Troponin Reviewed. ml 12:57 MAGNESIUM LEVEL Reviewed. ml 12:57 Chest, 1 View Reviewed. ml 12:59 Aspirin Chewable Tablet 324 mg PO once ordered. ml 13:27 Admission / Observation Status ordered. EDMS 13:50 Financial registration complete. lg 13:55 [facility] Payment Agreement was scanned into [employer] and attached to record. lg 15:23 REGULAR DIET ordered. EDMS 15:27 CARDIAC MARKER PANEL Ordered. EDMS 15:27 URINE CULTURE Ordered. EDMS 15:27 BLOOD CULTURES Ordered. EDMS 08/08 11:35 T-Sheet-- Draft Copy was scanned into [employer] and attached to record. 11:36 ECG/EKG was scanned into [employer] and attached to record. Administered Medications: 08/07 11:51 Drug: NS 0.9% 500 ml Route: IV; Rate: bolus; Site: left forearm; [facility] 12:00 Drug: Diltiazem 10 mg [diltiazem 5 mg/mL intravenous solution (2 mL)] {Note: [facility] administerd 5mg and rate decreased to 84 bpm. Provider informed, and EKG obtained, verbal order to hold additional 5mg.} Route: IVP; Site: left antecubital; 12:34 Drug: Cardizem - Diltiazem 30 mg [diltiazem 30 mg tablet (1 tabs)] Route: PO; [facility] 13:30 Drug: Aspirin 324 mg [aspirin 81 mg chewable tablet (4 tabs)] Route: PO; [facility] Critical Care Time: 13:00 Critical care time: Bedside Care: 90 minutes, Consultation: 10 minutes. Total time: 100 ml minutes Signatures: Dispatcher [employer] EDAZ Arpit Sibley MD MD ml Jobson, Karen, DAKSHA RN Gertrude Rushing, Reg Reg gb Gerry Valladares, Reg Reg lg Diane Jimenesbeth, Director Of Rehabilitative Services Unit ml3 Octavia Carver,RN RN kr3 Harriet VillegasRN RN [facility] The chart was reviewed and I authenticate all verbal orders and agree with the evaluation and treatment provided.Attachments: 13:55 [facility] Payment Agreement lg 11:36 ECG/EKG gb Chart Complete MTDD
--- NOTE | 2016-08-11 13:41 | EDDOCDS ---
Nurse's Notes [facility] Name: Loreto Adam Age: 86 yrs Sex: Female : 1930 Arrival Date: 08/07/2016 Time: 11:07 Bed Admit Hold Private MD: Ryan Romo M.D. Diagnosis: Palpitations-atrial flutter rapid vs svt Presentation: 08/07 11:23 Presenting complaint: Patient states: not feeling well for over 1 week. Reports balance kr3 has been off and today it was at its worse. Complains of palpitations on and off for many months. Adult Sepsis Screening: The patient does not have new or worsening altered mentation. Patient's respiratory rate is less than 22. Systolic blood pressure is greater than 100. Patient has a qSOFA score of 0- Negative Sepsis Screen. Suicide/Homicide risk assessment- the patient denies having any suicidal and/or homicidal ideations and does not present with any other emotional, behavioral or mental health complaints. Status: Patient is not a supervisor kosher dietary service or dependent. Transition of care: patient was not received from another setting of care. 11:23 Acuity: SALOMON Level 2 kr3 11:23 Method Of Arrival: Wheelchair kr3 Triage Assessment: 11:46 General: Appears in no apparent distress, comfortable, Behavior is cooperative. Pain: kr3 Location: chest Pain currently is 5 out of 10 on a pain scale. Quality of pain is described as aching. The patient is triaged at the bedside. See Assessment in Nurses Notes section of ED record. Historical: - Allergies: no known allergies; - Home Meds: 1. prednisone 5 mg Oral tab 2 tabs once daily 2. azithromycin 250 mg Oral cap daily 3. ethambutol 400 mg oral tab 2 tab once daily 4. Centrum Silver 400-250 mcg oral chew 5. Citracal Oral daily 6. cranberry 400 mg oral cap 7. Vitamin D Oral 8. qvar twice a day 80mg - PMHx: interstitial lung disease; nontuberculous myobacteria; Pneumonia; - PSHx: none; - Social history: Smoking status: Patient states was never smoker of tobacco. No barriers to communication noted, The patient speaks fluent Stateless, Speaks appropriately for age. - Family history: Not pertinent. - : The pt / caregiver states he / she is not on anticoagulants. Home medication list is obtained from the patient, pill bottles. - Exposure Risk Screening:: None identified. Screenin:16 Infection Control. ct3 18:10 Screening information is obtained from the patient. Fall risk: At risk due to age. [facility] Assistance ADL's: requires no assistance with activities of daily living. Abuse/DV Screen: The patient / caregiver reports he/she is: not in a situation that causes fear, pain or injury. Nutritional screening: No deficits noted. Advance Directives: There is no active DNR order. home support is adequate. Assessment: 12:09 General: Appears in no apparent distress, comfortable, Behavior is appropriate for age, [facility] cooperative. Pain: Denies pain. Neurological: Level of Consciousness is awake, alert, Oriented to person, place, time. Cardiovascular: Rhythm is atrial fibrillation with rapid ventricular response. Respiratory: Airway is patent Respiratory effort is even, unlabored, Respiratory pattern is regular, symmetrical, Breath sounds are clear bilaterally. Derm: Skin is pale. Musculoskeletal: Range of motion intact in all extremities. 13:30 General: Appears in no apparent distress, comfortable, Behavior is appropriate for age, [facility] cooperative, resting quietly on stretcher, and daughter at bedside, taking medications without difficulty, awaiting dispo and information from provider. Cardiovascular: Rhythm is sinus rhythm. 14:30 General: quiet in room, awaiting dispo. [facility] 15:30 General: assisted with bedside commode via ELECTRONIC PART[employer] SALESPERSON staff, tolerates well. [facility] 16:30 General: Appears in no apparent distress, comfortable, Behavior is appropriate for age, [facility] cooperative, family at bedside, awaiting dispo. 18:10 General: Appears in no apparent distress, comfortable, Behavior is appropriate for age, [facility] cooperative. Pain: Denies pain. Neurological: Level of Consciousness is awake, alert, Oriented to person, place, time. Cardiovascular: Rhythm is sinus tachycardia. 18:59 General: awaiting admission, pending, no new problems or complaints. [facility] Vital Signs: 11:09 BP 94 / 58; Pulse 46; Resp 16; Weight 34.93 kg (R); Height 4 ft. 11 in. (149.86 cm) (R);ct3 11:20 BP 124 / 88 (auto/); h 11:28 Pulse 156 MON; Pulse Ox 76% ; cjh 11:50 BP 120 / 73 (auto/); cjh 11:51 Pulse 152 MON; Pulse Ox 92% ; cjh 11:56 BP 112 / 73 (auto/); cjh 11:57 Pulse 150 MON; Pulse Ox 93% ; cjh 12:04 BP 107 / 55 (auto/); cjh 12:05 Pulse 84 MON; Pulse Ox 95% ; cjh 14:50 BP 102 / 56 (auto/); cjh 14:50 Pulse 74 MON; Pulse Ox 97% ; cjh 15:20 BP 100 / 57 (auto/); cjh 15:20 Pulse 72 MON; Pulse Ox 97% ; cjh 15:50 BP 96 / 52 (auto/); cjh 15:50 Pulse 78 MON; Pulse Ox 97% ; cjh 16:20 BP 101 / 58 (auto/); cjh 16:20 Pulse 72 MON; Pulse Ox 100% ; cjh 16:49 Pulse 70 MON; Pulse Ox 99% ; cjh 16:50 BP 104 / 55 (auto/); cjh 17:01 BP 101 / 55 (auto/); cjh 17:01 Pulse 72 MON; Pulse Ox 97% ; cjh 17:03 BP 101 / 55; Pulse 72; Resp 17; Temp 98.0(O); Pulse Ox 98% on 2.0 lpm NC; lr2 17:20 BP 96 / 58 (auto/); cjh 17:20 Pulse 70 MON; Pulse Ox 97% ; cjh 17:50 BP 114 / 61 (auto/); cjh 17:50 Pulse 74 MON; Pulse Ox 99% ; cjh 18:20 BP 101 / 54 (auto/); cjh 18:20 Pulse 76 MON; Pulse Ox 99% ; cjh 18:50 BP 98 / 53 (auto/); cjh 18:50 Pulse 70 MON; Pulse Ox 100% ; cjh 11:09 Body Mass Index 15.55 (34.93 kg, 149.86 cm) ct3 Vitals: 11:09 Log In Time: August 07, 2016 at 10:07. ct3 11:09 RN notified that patient meets Red Flag criteria. ct3 ED Course: 11:09 Patient visited by Cecilia Hernandez PCA. ct3 11:09 Ryan Romo is Private Physician. ct3 11:09 Patient moved to Waiting ct3 11:15 Octavia Carver,DAKSHA is Primary Nurse. ct3 11:15 Patient moved to 19 ct3 11:22 EKG done. (by ED staff). Reviewed by Arpit Sibley MD. ar3 11:24 Triage Initiated kr3 11:27 Patient moved to 4 kpj 11:28 Arpit Sibley MD is Attending Physician. ml 11:28 Patient visited by Arpit Sibley MD. ml 11:31 Patient visited by Medina Carrillo PCA. ar3 11:46 Inserted saline lock: 22 gauge in left forearm The patient tolerated the procedure well.kr3 12:08 MAGNESIUM LEVEL Sent. cjh 12:08 Troponin Sent. cjh 12:08 CIP Sent. cj 12:08 FreeT4 with TSH Sent. [facility] 12:08 MED Profile Sent. cjh 12:35 Patient visited by Harriet Villegas RN. cj 12:45 Chest, 1 View Returned. EDMS 13:00 Nilam Lopez is Hospitalizing Provider. ml 13:31 Patient visited by Harriet Villegas RN. cj 13:55 [facility] Payment Agreement was scanned into [employer] and attached to record. lg 14:22 Chest, 1 View Returned. EDMS 14:51 Patient moved to 13 rs6 16:20 Patient moved to Admit Hold kp 17:43 Patient visited by Medina Carrillo PCA. ar3 18:10 The patient / caregiver is instructed regarding the plan of care and ED course. cj 18:10 No procedures done that require assistance. cj 18:11 Patient visited by Pam Vitale RN. ld5 08/08 11:35 T-Sheet-- Draft Copy was scanned into [employer] and attached to record. gb 11:36 ECG/EKG was scanned into [employer] and attached to record. gb Administered Medications: 08/07 11:51 Drug: NS 0.9% 500 ml Route: IV; Rate: bolus; Site: left forearm; [facility] 12:00 Drug: Diltiazem 10 mg [diltiazem 5 mg/mL intravenous solution (2 mL)] {Note: cj administerd 5mg and rate decreased to 84 bpm. Provider informed, and EKG obtained, verbal order to hold additional 5mg.} Route: IVP; Site: left antecubital; 12:34 Drug: Cardizem - Diltiazem 30 mg [diltiazem 30 mg tablet (1 tabs)] Route: PO; [facility] 13:30 Drug: Aspirin 324 mg [aspirin 81 mg chewable tablet (4 tabs)] Route: PO; [facility] Order Results: Lab Order: CBC with Diff; SPEC'M 08/07/16 11:41 Test: WHITE BLOOD COUNT; Value: 17.6; Range: 4.0-10.0; Abnormal: Above high normal; Units: K/mm3; Status: F Test: RED BLOOD COUNT; Value: 4.58; Range: 4.00-5.40; Units: M/mm3; Status: F Test: HEMOGLOBIN; Value: 12.9; Range: 12.0-16.0; Units: g/dl; Status: F Test: HEMATOCRIT; Value: 40.9; Range: 36.0-47.0; Units: %; Status: F Test: MEAN CORPUSCULAR VOLUME; Value: 89.2; Range: 80.0-96.0; Units: fl; Status: F Test: MEAN CORPUSCULAR HEMOGLOBIN; Value: 28.1; Range: 27.0-33.0; Units: pg; Status: F Test: MEAN CORPUSCULAR HGB CONC; Value: 31.5; Range: 32.0-36.5; Abnormal: Below low normal; Units: g/dl; Status: F Test: RED CELL DISTRIBUTION WIDTH; Value: 13.8; Range: 11.5-14.5; Units: %; Status: F Test: PLATELET COUNT, AUTOMATED; Value: 430; Range: 150-450; Units: k/mm3; Status: F Test: NEUTROPHILS %; Value: 89.2; Range: 36.0-66.0; Abnormal: Above high normal; Units: %; Status: F Test: LYMPH %; Value: 4.7; Range: 24.0-44.0; Abnormal: Below low normal; Units: %; Status: F Test: MONO %; Value: 4.2; Range: 0.0-5.0; Units: %; Status: F Test: EOS %; Value: 1.1; Range: 0.0-3.0; Units: %; Status: F Test: BASO %; Value: 0.3; Range: 0.0-1.0; Units: %; Status: F Test: LARGE UNSTAINED CELL %; Value: 0.6; Range: 0.0-4.0; Units: %; Status: F Test: NEUTROPHILS #; Value: 15.7; Range: 1.8-7.7; Abnormal: Above high normal; Units: K/mm3; Status: F Test: LYMPH #; Value: 0.9; Range: 1.5-4.5; Abnormal: Below low normal; Units: K/mm3; Status: F Test: MONO #; Value: 0.7; Range: 0.0-0.8; Units: K/mm3; Status: F Test: EOS #; Value: 0.2; Range: 0.0-0.50; Units: K/mm3; Status: F Test: BASO #; Value: 0.0; Range: 0.0-0.2; Units: K/mm3; Status: F Test: LARGE UNSTAINED CELL #; Value: 0.1; Range: 0.0-0.4; Units: K/mm3; Status: F Lab Order: MED Profile; [facility]' 08/07/16 11:40 Test: GLUCOSE, FASTING; Value: 154; Range: 83-110; Abnormal: Above high normal; Units: MG/DL; Status: F Test: BLOOD UREA NITROGEN; Value: 25; Range: 7-18; Abnormal: Above high normal; Units: MG/DL; Status: F Test: CREATININE FOR GFR; Value: 0.80; Range: 0.55-1.02; Units: MG/DL; Status: F Test: GLOMERULAR FILTRATION RATE; Value: > 60.0; Range: >32; Status: F Test: SODIUM LEVEL; Value: 141; Range: 136-145; Units: MEQ/L; Status: F Test: POTASSIUM SERUM; Value: 4.4; Range: 3.5-5.1; Units: MEQ/L; Status: F Test: CHLORIDE LEVEL; Value: 100; Range: 98-107; Units: MEQ/L; Status: F Test: CARBON DIOXIDE LEVEL; Value: 31; Range: 21-32; Units: MEQ/L; Status: F Test: ANION GAP; Value: 10; Range: 8-16; Units: MEQ/L; Status: F Test: CALCIUM LEVEL; Value: 9.5; Range: 8.8-10.2; Units: MG/DL; Status: F Test Note: ; Units are mL/min/1.73 m2 Chronic Kidney Disease Staging per NKF: Stage I & II GFR >=60 Normal to Mildly Decreased Stage III GFR 30-59 Moderately Decreased Stage IV GFR 15-29 Severely Decreased Stage V GFR <15 Very Little GFR Left ESRD GFR <15 on TIP CUTTER Lab Order: FreeT4 with TSH; SPEC'08/07/16 11:40 Test: THYROID STIMULATING HORMONE; Value: 4.610; Range: 0.358-3.740; Abnormal: Above high normal; Units: uIU/ML; Status: F Test: FREE T4; Value: 1.14; Range: 0.76-1.46; Units: NG/DL; Status: F Lab Order: CIP; SPEC'08/07/16 11:40 Test: CPK CREATINE PHOSPHOKINASE; Value: 45; Range: 26-192; Units: U/L; Status: F Test: CK-MB VALUE MASS; Value: 1.9; Range: 0.0-3.6; Units: NG/ML; Status: F Test: MB/CK RELATIVE INDEX; Value: 4.22; Range: < OR =4; Abnormal: Above high normal; Status: F Test Note: ; DIAGNOSIS CRITERIA MMB ng/ml Relative Index (RI) NON-AMI < or = 5 N/A GIL ZONE > 5 < or = 4 AMI > 5 > 4 Lab Order: Troponin; SPEC'08/07/16 11:40 Test: TROPONIN I; Value: 0.17; Range: < 0.10; Abnormal: Above high normal; Units: NG/ML; Status: F Test Note: ; Troponin I Reference Interval for [email or web address] LOCI: 99th Percentile= 0.00-0.045 ng/ml Risk Stratification: <= 0.10 ng/ml Decreased Risk for Adverse Clinical Events. 0.10-1.50 ng/ml Increased Risk for Adverse Clinical Events. Evaluation of additional criterion and/or repeat testing in 2-6 hours is suggested to rule out myocardial damage. >= 1.50 ng/ml Indicative of Myocardial Injury. Lab Order: MAGNESIUM LEVEL; SPEC'M 08/07/16 11:40 Test: MAGNESIUM LEVEL; Value: 1.9; Range: 1.8-2.4; Units: MG/DL; Status: F Lab Order: CARDIAC MARKER PANEL; SPEC'M 08/07/16 18:18 Test: CPK CREATINE PHOSPHOKINASE; Value: 34; Range: 26-192; Units: U/L; Status: F Test: CK-MB VALUE MASS; Value: 1.3; Range: 0.0-3.6; Units: NG/ML; Status: F Test: MB/CK RELATIVE INDEX; Value: 3.82; Range: < OR =4; Status: F Test: TROPONIN I; Value: 0.10; Range: < 0.10; Abnormal: Delta; Units: NG/ML; Status: F Test Note: ; DIAGNOSIS CRITERIA MMB ng/ml Relative Index (RI) NON-AMI < or = 5 N/A GIL ZONE > 5 < or = 4 AMI > 5 > 4 Radiology Order: Chest, 1 View Test: Chest, 1 View REASON FOR EXAMINATION: palpitatins; PORTABLE CHEST:; ; AP portable view of the chest is performed and compared with multiple prior; exams, most recently 03/07/2016 and 01/17/2016.; ; 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 No definite; acute infiltrate is seen. The heart appears mildly enlarged. Mediastinal; silhouette is unchanged.; ; IMPRESSION:; ; Stable chronic fibrotic changes. No definite acute infiltrate.; ; ; Signed by; Florin Gil MD 08/07/2016 02:20 P; Outcome: 13:00 Decision to Hospitalize by Provider. ml 18:10 Discharge Assessment: Patient awake, alert and oriented x 3. No cognitive and/or cjh functional deficits noted. Patient verbalized understanding of disposition instructions. patient administered narcotics - no. The following High Risk Discharge criteria are identified: None. Admitted to PCU. Condition: stable. No special radiology studies were completed. Property :Personal belongings accompany Pt. 19:12 Patient left the ED. ml3 Signatures: Dispatcher [employer] EDKY Arpit Sibley MD MD ml Jobson, Karen, RN RN Gertrude Rushing Reg Reg gb Ganter, LoriLee, Reg Reg lg Jaja Jimenes, Turkey Egg Gatherer Unit ml3 Octavia Carver,RN RN kr3 Medina Carrillo, ELECTRONIC PARTS SALESPERSON [employer] SALESPERSON ar3 Pam Vitale,RN RN ld5 David, Cecilia, ELECT[employer]IC [employer]S SALESPERSON [employer] SALESPERSON ct3 Harriet Villegas,RN RN cjh Matt, Teresita, ELECTRONIC [employer]S SALESPERSON ELECT[employer]IC [employer] SALESPERSON rs6 Pam Pedraza lr2 Corrections: (The following items were deleted from the chart) 18:13 18:10 CT Study completed. critical access hospital Chart Complete MTDD
--- NOTE | 2016-08-11 13:41 | EDDOCDS ---
Physician Documentation [facility] Name: Loreto Adam Age: 86 yrs Sex: Female : 1930 Arrival Date: 08/07/2016 Time: 11:07 Bed Admit Hold Private MD: Ryan Romo M.D. Disposition: 08/07 13:00 Critical Care:. ml Disposition: 08/07/16 13:00 Hospitalization ordered by Nilam Lopez for Inpatient Admission. Preliminary diagnosis is Palpitations - atrial flutter rapid vs svt. - Bed requested for PCU. - Status is Inpatient Admission. ml3 - Condition is Stable. - Problem is new. - Symptoms have improved. Historical: - Allergies: no known allergies; - Home Meds: 1. prednisone 5 mg Oral tab 2 tabs once daily 2. azithromycin 250 mg Oral cap daily 3. ethambutol 400 mg oral tab 2 tab once daily 4. Centrum Silver 400-250 mcg oral chew 5. Citracal Oral daily 6. cranberry 400 mg oral cap 7. Vitamin D Oral 8. qvar twice a day 80mg - PMHx: interstitial lung disease; nontuberculous myobacteria; Pneumonia; - PSHx: none; - Social history: Smoking status: Patient states was never smoker of tobacco. No barriers to communication noted, The patient speaks fluent Yoruba, Speaks appropriately for age. - Family history: Not pertinent. - : The pt / caregiver states he / she is not on anticoagulants. Home medication list is obtained from the patient, pill bottles. - Exposure Risk Screening:: None identified. Vital Signs: 11:09 BP 94 / 58; Pulse 46; Resp 16; Weight 34.93 kg / 77.01 lbs (R); Height 4 ft. 11 in. ct3 (149.86 cm) (R); 11:20 BP 124 / 88 (auto/); cjh 11:28 Pulse 156 MON; Pulse Ox 76% ; cjh 11:50 BP 120 / 73 (auto/); cjh 11:51 Pulse 152 MON; Pulse Ox 92% ; cjh 11:56 BP 112 / 73 (auto/); cjh 11:57 Pulse 150 MON; Pulse Ox 93% ; cjh 12:04 BP 107 / 55 (auto/); cjh 12:05 Pulse 84 MON; Pulse Ox 95% ; cjh 14:50 BP 102 / 56 (auto/); cjh 14:50 Pulse 74 MON; Pulse Ox 97% ; cjh 15:20 BP 100 / 57 (auto/); cjh 15:20 Pulse 72 MON; Pulse Ox 97% ; cjh 15:50 BP 96 / 52 (auto/); cjh 15:50 Pulse 78 MON; Pulse Ox 97% ; cjh 16:20 BP 101 / 58 (auto/); cjh 16:20 Pulse 72 MON; Pulse Ox 100% ; cjh 16:49 Pulse 70 MON; Pulse Ox 99% ; cjh 16:50 BP 104 / 55 (auto/); cjh 17:01 BP 101 / 55 (auto/); cjh 17:01 Pulse 72 MON; Pulse Ox 97% ; cjh 17:03 BP 101 / 55; Pulse 72; Resp 17; Temp 98.0(O); Pulse Ox 98% on 2.0 lpm NC; lr2 17:20 BP 96 / 58 (auto/); cjh 17:20 Pulse 70 MON; Pulse Ox 97% ; cjh 17:50 BP 114 / 61 (auto/); cjh 17:50 Pulse 74 MON; Pulse Ox 99% ; cjh 18:20 BP 101 / 54 (auto/); cjh 18:20 Pulse 76 MON; Pulse Ox 99% ; cjh 18:50 BP 98 / 53 (auto/); cjh 18:50 Pulse 70 MON; Pulse Ox 100% ; cjh 11:09 Body Mass Index 15.55 (34.93 kg, 149.86 cm) ct3 MDM: 11:17 ECG WITH READING ER PHYS+CARDIAG ordered. EDMS 11:19 IV Saline Lock ordered. ml 11:19 Doormaker/Pulse Ox/q 15 min VS ordered. ml 11:19 Rhythm Strip to chart ordered. ml 11:20 CBC with Diff Ordered. EDMS 11:20 MED Profile Ordered. EDMS 11:20 FreeT4 with TSH Ordered. EDMS 11:20 CIP Ordered. EDMS 11:20 Troponin Ordered. EDMS 11:21 Chest, 1 View Ordered. EDMS 11:39 Magnesium Level Ordered. EDMS 11:44 NS 0.9% 500 ml IV at bolus once ordered. ml 11:47 Diltiazem 10 mg IVP once; administer over 2 minutes ordered. ml 11:47 MAGNESIUM LEVEL Ordered. EDMS 12:03 ECG WITH READING ER PHYS+CARDIAG ordered. EDMS 12:22 Cardizem - Diltiazem 30 mg PO once ordered. ml 12:45 BED REQUEST+ADM ordered. EDMS 12:57 CBC with Diff Reviewed. ml 12:57 MED Profile Reviewed. ml 12:57 FreeT4 with TSH Reviewed. ml 12:57 CIP Reviewed. ml 12:57 Troponin Reviewed. ml 12:57 MAGNESIUM LEVEL Reviewed. ml 12:57 Chest, 1 View Reviewed. ml 12:59 Aspirin Chewable Tablet 324 mg PO once ordered. ml 13:27 Admission / Observation Status ordered. EDMS 13:50 Financial registration complete. lg 13:55 [facility] Payment Agreement was scanned into [employer] and attached to record. lg 15:23 REGULAR DIET ordered. EDMS 15:27 CARDIAC MARKER PANEL Ordered. EDMS 15:27 URINE CULTURE Ordered. EDMS 15:27 BLOOD CULTURES Ordered. EDMS 08/08 11:35 T-Sheet-- Draft Copy was scanned into [employer] and attached to record. 11:36 ECG/EKG was scanned into [employer] and attached to record. Administered Medications: 08/07 11:51 Drug: NS 0.9% 500 ml Route: IV; Rate: bolus; Site: left forearm; [facility] 12:00 Drug: Diltiazem 10 mg [diltiazem 5 mg/mL intravenous solution (2 mL)] {Note: [facility] administerd 5mg and rate decreased to 84 bpm. Provider informed, and EKG obtained, verbal order to hold additional 5mg.} Route: IVP; Site: left antecubital; 12:34 Drug: Cardizem - Diltiazem 30 mg [diltiazem 30 mg tablet (1 tabs)] Route: PO; [facility] 13:30 Drug: Aspirin 324 mg [aspirin 81 mg chewable tablet (4 tabs)] Route: PO; [facility] Critical Care Time: 13:00 Critical care time: Bedside Care: 90 minutes, Consultation: 10 minutes. Total time: 100 ml minutes Signatures: Dispatcher [employer] EDPR Arpit Sibley MD MD ml Jobson, Karen, DAKSHA RN Gertrude Rushing, Reg Reg gb Gerry Valladares, Reg Reg lg Diane Jimenesbeth, Exhibitions And Collections Manager Unit ml3 Octavia Carver,RN RN kr3 Harriet VillegasRN RN [facility] The chart was reviewed and I authenticate all verbal orders and agree with the evaluation and treatment provided.Attachments: 13:55 [facility] Payment Agreement lg 11:36 ECG/EKG gb Chart Complete MTDD
--- NOTE | 2016-08-11 16:49 | IPN ---
DATE: 08/11/2016 Ms. Adam slept well last night. She had a brief episode of tachycardia that she was unaware of. No chest pain and no shortness of breath. Tolerating diet. Temperature is 97.1, pulse 68, respirations 20, blood pressure 117/57, 100% on 3 liters. Intake and output notable for a negative fluid balance of -35. Two bowel movements noted yesterday. Body mass index is 14.5. She is awake, appropriately interactive. Mucous membranes moist. Neck supple. She is cachectic appearing. Heart is distant sounding and normal S1-S2. Not tachycardiac. Breathing symmetrical. Heart is regular rate and rhythm. White cell count 10.9, hemoglobin 10.9, platelets of 397. BUN 19, creatinine 0.42. ASSESSMENT: This is an 86-year-old with atrial flutter and rapid ventricular response, which is reasonably controlled on digoxin. PLAN: 1. Cardiovascular. Plan is to continue with digoxin. At this point she is on a relatively low dose. Digoxin level was not toxic. Rate control is reasonable. Blood pressure is reasonable. Physical therapy is ordered to see how that responds to movement. 2. Patient has depression, which is most likely exacerbated by the recent of her daughter. Restarted antidepressant therapy with the use of Prozac. 3. Patient had chronic interstitial lung disease. 4. Patient has nontuberculous mycobacteria. Continuing home regimen of antibiotics. 5. Patient has protein calorie malnutrition. Encouraging the use of chocolate Ensure. Empty bottles are noted at bedside. 6. Patient has moderate to severe mitral regurgitation. 7. Patient has deep vein thrombosis (DVT) prophylaxis. 8. Patient does have insomnia. We considered a dose of trazodone yesterday but after further review was continued with Benadryl due to possible medication side effects of the trazadone.
[2016-08-11] MEDS: PARoxetine 10MG TABLET PO SCH (21:05)
[2016-08-11] MEDS: ACETAMINOPHEN TAB 650MG DOSE (2X325MG) PO PRN (21:06)
[2016-08-12] VITALS (7 sets, daily range): BP systolic 98–137; BP diastolic 50–70
[2016-08-12 05:19] LABS: MEAN CORPUSCULAR HEMOGLOBIN 28.5 pg (27.0-33.0); MEAN CORPUSCULAR HGB CONC 32.5 g/dl (32.0-36.5); MEAN CORPUSCULAR VOLUME 87.7 fl (80.0-96.0); RED CELL DISTRIBUTION WIDTH 13.8 % (11.5-14.5); WHITE BLOOD COUNT 8.5 K/mm3 (4.0-10.0)
[2016-08-12 05:34] LABS: ALBUMIN 2.5 GM/DL (3.2-5.2); ALBUMIN/GLOBULIN RATIO 0.64 (1.00-1.93); ALKALINE PHOSPHATASE 90 U/L (45-117); ALT/SGPT 25 U/L (12-78); ANION GAP 6 MEQ/L (8-16); AST/SGOT 23 U/L (15-37); BILIRUBIN,TOTAL 0.2 MG/DL (0.2-1.0); BLOOD UREA NITROGEN 17 MG/DL (7-18); CALCIUM LEVEL 8.8 MG/DL (8.8-10.2); CARBON DIOXIDE LEVEL 37 MEQ/L (21-32); CHLORIDE LEVEL 98 MEQ/L (98-107); CREATININE FOR GFR 0.43 MG/DL (0.55-1.02); GLOMERULAR FILTRATION RATE > 60.0 (>32); GLUCOSE, FASTING 77 MG/DL (83-110); POTASSIUM SERUM 3.6 MEQ/L (3.5-5.1); SODIUM LEVEL 141 MEQ/L (136-145); TOTAL PROTEIN 6.4 GM/DL (6.4-8.2)
[2016-08-12] MEDS: predniSONE 10 MG TAB PO SCH (08:06)
[2016-08-12] MEDS: ETHAMBUTOL 400MG TAB PO SCH (08:06)
[2016-08-12] MEDS: VITAMIN D 1,000 INTERNATIONAL UNITS TABLET PO SCH (08:06)
[2016-08-12] MEDS: DIGOXIN 0.125 MG TAB PO SCH (08:06)
[2016-08-12] MEDS: MULTIVITAMINS/MINERALS THERAP 1 TAB PO SCH (08:06)
[2016-08-12] MEDS: AZITHROMYCIN 250 MG TAB PO SCH (08:13)
[2016-08-12] MEDS: SENOKOT S TAB PO SCH ×2 (08:13→21:20)
[2016-08-12] MEDS: FLUTICASONE HFA 44 MCG 10.6GM INHALER (FLOVENT) INH SCH ×2 (08:25→19:35)
--- NOTE | 2016-08-12 14:43 | IPN ---
DATE: 08/11/2016 Mrs. Adam was seen earlier today. She was sitting on the bed in no acute distress at rest. Her daughter was at the bedside. She has been ambulating, but again today developed narrow complex tachycardia and she was symptomatic with palpitations, but on chest pain. She has no pedal edema, orthopnea, or paroxysmal nocturnal dyspnea (PND). She had no fever or chills. She has been on digoxin and she continued to be symptomatic. On physical examination, the patient is alert and oriented, in no acute distress at rest. Her last vital signs revealed a blood pressure of 119/66 with a pulse of 76, respirations 18, and her temperature is 96.8 degrees Fahrenheit with an oxygen saturation of 98% on 2 liters nasal cannula. Examination of the head, ears, eyes, nose and throat: Atraumatic. Neck is supple. No jugular venous distention (JVD). The lungs were clear bilaterally on auscultation without any wheezing or rhonchi. The heart examination revealed normal S1 and S2 without gallops. The point of maximal impulse (PMI) is not displaced. There is no rub. Abdomen is soft and nontender. Extremities reveal no pedal edema. Neurological examination is negative for focal deficit. LABORATORIES: CBC done today revealed a WBC of 10.9, hemoglobin 10.9, hematocrit 33.6, and platelets 397,000. BMP revealed a sodium of 139, potassium 4.0, chloride 98, CO2 38, BUN 19, creatinine 0.42, GFR more than 60, fasting glucose 85, and calcium 8.6. Total bilirubin 0.2, alkaline phosphatase 92, AST 31, ALT 28, total protein 6.4, albumin 2.5. Serum digoxin is 0.9. Mrs. Loreto Adam continues to be symptomatic on the digoxin. She could not tolerate Cardizem because of low blood pressure. I had a long discussion with her as well as her daughter and she has agreed to try flecainide and she will be started at one tablet by mouth daily in the evening and she will continue with the digoxin in the morning. It seems that prior to coming to the hospital, she was taking a half tablet by mouth twice a day. She will be monitored now while on the combination of the digoxin and the flecainide. She will remain on telemetry. [facility]
[2016-08-12] MEDS: PARoxetine 10MG TABLET PO SCH (21:21)
[2016-08-12] MEDS: ACETAMINOPHEN TAB 650MG DOSE (2X325MG) PO PRN (21:21)
[2016-08-12] MEDS: diphenhydrAMINE 12.5MG/5ML ELIXIR UDC PO PRN (21:21)
[2016-08-13] VITALS (7 sets, daily range): BP systolic 105–139; BP diastolic 55–73
[2016-08-13 05:33] LABS: MEAN CORPUSCULAR HEMOGLOBIN 28.6 pg (27.0-33.0); MEAN CORPUSCULAR HGB CONC 32.5 g/dl (32.0-36.5); MEAN CORPUSCULAR VOLUME 87.8 fl (80.0-96.0); RED CELL DISTRIBUTION WIDTH 13.9 % (11.5-14.5); WHITE BLOOD COUNT 9.1 K/mm3 (4.0-10.0)
[2016-08-13 05:52] LABS: ALBUMIN 2.5 GM/DL (3.2-5.2); ALBUMIN/GLOBULIN RATIO 0.63 (1.00-1.93); ALKALINE PHOSPHATASE 73 U/L (45-117); ALT/SGPT 24 U/L (12-78); ANION GAP 4 MEQ/L (8-16); AST/SGOT 21 U/L (15-37); BILIRUBIN,TOTAL 0.3 MG/DL (0.2-1.0); BLOOD UREA NITROGEN 17 MG/DL (7-18); CALCIUM LEVEL 8.5 MG/DL (8.8-10.2); CARBON DIOXIDE LEVEL 38 MEQ/L (21-32); CHLORIDE LEVEL 97 MEQ/L (98-107); CREATININE FOR GFR 0.52 MG/DL (0.55-1.02); GLOMERULAR FILTRATION RATE > 60.0 (>32); GLUCOSE, FASTING 78 MG/DL (83-110); POTASSIUM SERUM 3.9 MEQ/L (3.5-5.1); SODIUM LEVEL 139 MEQ/L (136-145); TOTAL PROTEIN 6.5 GM/DL (6.4-8.2)
[2016-08-13] MEDS: FLUTICASONE HFA 44 MCG 10.6GM INHALER (FLOVENT) INH SCH ×2 (08:07→19:35)
[2016-08-13] MEDS: ETHAMBUTOL 400MG TAB PO SCH (09:48)
[2016-08-13] MEDS: predniSONE 10 MG TAB PO SCH (09:49)
[2016-08-13] MEDS: SENOKOT S TAB PO SCH ×2 (09:49→21:19)
[2016-08-13] MEDS: AZITHROMYCIN 250 MG TAB PO SCH (09:49)
[2016-08-13] MEDS: MULTIVITAMINS/MINERALS THERAP 1 TAB PO SCH (09:49)
[2016-08-13] MEDS: VITAMIN D 1,000 INTERNATIONAL UNITS TABLET PO SCH (09:49)
[2016-08-13] MEDS: DIGOXIN 0.125 MG TAB PO SCH (09:49)
--- NOTE | 2016-08-13 10:52 | IPN ---
DATE: 08/12/2016 Ms. Adam is seen early in the morning. She had just been out of bed to the bathroom and was sitting up in bed. She was noted to have a heart rate in the 140s. At this time, she is aware of her racing heartbeat but does not feel lightheaded. She is not experiencing shortness of breath or chest discomfort and is actually quite engaging. Temperature is 96.8, pulse 140, blood pressure associated with that pulse is 98/50, respiratory rate 18. She is 94% on two liters. Intake and output notable for a negative fluid balance of -650. Four bowel movements noted yesterday. She is awake, appropriately interactive. Breathing is symmetrical. She is speaking in complete sentences. No accessory muscle use. I:E ratio is 1:3. Lungs are basically clear. Heart is tachycardic, palpable cardiac impulse is noted between ribs on the left. Abdomen is soft, doughy, nontender. There is no lower extremity edema. LABORATORY DATA: White cell count 8.5, hemoglobin 11. BUN 17, creatinine 0.43. ASSESSMENT: This is an 86-year-old with atrial flutter with rapid ventricular response who continues to experience episodes of tachycardia, today noted with activity while on digoxin at a nontoxic level. These are associated with low blood pressure. PLAN: 1. Cardiovascular. The patient is on digoxin at this point, Cardizem, beta blockade are relatively contraindicated as previously discussed. The patient did not tolerate flecainide. The patient has been followed by Dr. Lal as an inpatient. 2. The patient has depression, which is likely exacerbated by the recent of her daughter. She has been started on Prozac in the hospital. 3. The patient has chronic interstitial lung disease. 4. The patient has nontuberculous mycobacteria. Continuing with her home regimen of antibiotics which are planned to continue until April 2017. 5. The patient has protein-calorie malnutrition. Encouraging the use of chocolate Ensure. We will check a prealbumin on Sunday. 6. The patient has moderate to severe mitral regurgitation. 7. The patient has deep vein thrombosis (DVT) prophylaxis. 8. The patient has been seen by physical therapy and has been picked up for continue services in the hospital.
[2016-08-13] MEDS ORDERED: SLF 3 ML SYR IV PRN (20:30)
[2016-08-13] MEDS: SLF 3 ML SYR IV SCH (21:19)
[2016-08-13] MEDS: PARoxetine 10MG TABLET PO SCH (21:19)
[2016-08-13] MEDS: diphenhydrAMINE 12.5MG/5ML ELIXIR UDC PO PRN (23:02)
[2016-08-13] MEDS: ACETAMINOPHEN TAB 650MG DOSE (2X325MG) PO PRN (23:02)
[2016-08-14 05:05] VITALS: BP 134/60
[2016-08-14] MEDS: SLF 3 ML SYR IV SCH ×3 (05:15→21:37)
[2016-08-14 05:33] LABS: MEAN CORPUSCULAR HEMOGLOBIN 29.1 pg (27.0-33.0); MEAN CORPUSCULAR HGB CONC 33.1 g/dl (32.0-36.5); RED CELL DISTRIBUTION WIDTH 13.8 % (11.5-14.5); WHITE BLOOD COUNT 8.5 K/mm3 (4.0-10.0)
[2016-08-14 06:02] LABS: ALBUMIN 2.4 GM/DL (3.2-5.2); ALBUMIN/GLOBULIN RATIO 0.62 (1.00-1.93); ALKALINE PHOSPHATASE 71 U/L (45-117); ALT/SGPT 21 U/L (12-78); ANION GAP 6 MEQ/L (8-16); AST/SGOT 21 U/L (15-37); BILIRUBIN,TOTAL 0.4 MG/DL (0.2-1.0); BLOOD UREA NITROGEN 14 MG/DL (7-18); CALCIUM LEVEL 8.5 MG/DL (8.8-10.2); CARBON DIOXIDE LEVEL 37 MEQ/L (21-32); CHLORIDE LEVEL 98 MEQ/L (98-107); CREATININE FOR GFR 0.49 MG/DL (0.55-1.02); GLOMERULAR FILTRATION RATE > 60.0 (>32); GLUCOSE, FASTING 73 MG/DL (83-110); POTASSIUM SERUM 3.8 MEQ/L (3.5-5.1); SODIUM LEVEL 141 MEQ/L (136-145); TOTAL PROTEIN 6.3 GM/DL (6.4-8.2)
[2016-08-14] MEDS: FLUTICASONE HFA 44 MCG 10.6GM INHALER (FLOVENT) INH SCH ×2 (07:17→20:12)
[2016-08-14 08:00] VITALS: BP 132/65
[2016-08-14] MEDS: predniSONE 10 MG TAB PO SCH (09:17)
[2016-08-14] MEDS: MULTIVITAMINS/MINERALS THERAP 1 TAB PO SCH (09:17)
[2016-08-14] MEDS: ETHAMBUTOL 400MG TAB PO SCH (09:17)
[2016-08-14] MEDS: DIGOXIN 0.125 MG TAB PO SCH (09:17)
[2016-08-14] MEDS: AZITHROMYCIN 250 MG TAB PO SCH (09:18)
[2016-08-14] MEDS: SENOKOT S TAB PO SCH ×2 (09:18→21:37)
[2016-08-14] MEDS: VITAMIN D 1,000 INTERNATIONAL UNITS TABLET PO SCH (09:18)
[2016-08-14 12:00] VITALS: BP 112/64
[2016-08-14 16:00] VITALS: BP 110/60
--- NOTE | 2016-08-14 16:58 | IPN ---
DATE: 08/13/2016 Ms. Adam is feeling well. She is up when I see her this morning. She has ordered breakfast. She is not complaining of any pain. She is not having any palpitations, although yesterday she did have an elevated heart rate noted on telemetry. She is not short of breath. Temperature is 97, pulse 77, respiratory rate 18, blood pressure 121/65, 100% on 2 liters nasal cannula. Input and output notable for a negative fluid status of -1.55. Weight is 32.4 kg. Awake, appropriately interactive, pleasantly conversant. Thin appearing. Mucous membranes are moist. Neck is supple. Breathing is symmetrically rested. I:E ratio is 1:3. No accessory muscle use. Speaking in complete sentences. Heart is notable for a palpable PMI. Not tachycardic. Distal pulses 2+. Capillary refill is less than 2 seconds. Abdomen is soft, doughy, nontender. White cell count is 9.1, hemoglobin 10.9, BUN is 17, creatinine 0.5, carbon dioxide is 38. ASSESSMENT: This is an 86-year-old with atrial flutter and rapid ventricular response who continues to experience episodes of tachycardia, noted yesterday on digoxin a nontoxic level. PLAN 1. Cardiovascular. The patient is continued on digoxin. Instructed at this point to start Cardizem at a much reduced dose. She is continuing to have episodes of tachycardia. Hope to discuss this case tomorrow with Dr. Lal when he returns to service. In the meantime, the patient will be continued on telemetry. 2. The patient has depression and has been started on Prozac in the hospital, which we will think about increasing tomorrow. 3. The patient has chronic interstitial lung disease. 4. The patient has non tuberculosis mycobacterium. Continue with her home regimen of antibiotics, which are planned to continue until April 2017. 5. The patient has protein calorie malnutrition. Encourage the use of chocolate Ensure. Prealbumin is pending for tomorrow. 6. The patient has moderate to severe mitral regurgitation. 7. The patient has deep vein thrombosis (DVT) prophylaxis. 8. The patient is being followed by physical therapy (PT).
[2016-08-14 19:39] VITALS: BP 114/62
[2016-08-14] MEDS: diphenhydrAMINE 12.5MG/5ML ELIXIR UDC PO PRN (21:37)
[2016-08-14] MEDS: PARoxetine 10MG TABLET PO SCH (21:37)
[2016-08-14] MEDS: ACETAMINOPHEN TAB 650MG DOSE (2X325MG) PO PRN (21:41)
[2016-08-15] VITALS: BP 127/67
[2016-08-15 04:00] VITALS: BP 124/62
[2016-08-15 05:27] LABS: MEAN CORPUSCULAR HEMOGLOBIN 28.9 pg (27.0-33.0); MEAN CORPUSCULAR HGB CONC 33.1 g/dl (32.0-36.5); MEAN CORPUSCULAR VOLUME 87.4 fl (80.0-96.0); RED CELL DISTRIBUTION WIDTH 13.7 % (11.5-14.5); WHITE BLOOD COUNT 9.5 K/mm3 (4.0-10.0)
[2016-08-15 06:01] LABS: ANION GAP 7 MEQ/L (8-16); BLOOD UREA NITROGEN 15 MG/DL (7-18); CALCIUM LEVEL 8.4 MG/DL (8.8-10.2); CARBON DIOXIDE LEVEL 36 MEQ/L (21-32); CHLORIDE LEVEL 97 MEQ/L (98-107); CREATININE FOR GFR 0.47 MG/DL (0.55-1.02); GLOMERULAR FILTRATION RATE > 60.0 (>32); GLUCOSE, FASTING 74 MG/DL (83-110); SODIUM LEVEL 140 MEQ/L (136-145)
[2016-08-15] MEDS: SLF 3 ML SYR IV SCH ×3 (06:18→22:39)
[2016-08-15] MEDS: FLUTICASONE HFA 44 MCG 10.6GM INHALER (FLOVENT) INH SCH ×2 (07:10→20:29)
[2016-08-15 08:00] VITALS: BP 104/58
[2016-08-15] MEDS: ETHAMBUTOL 400MG TAB PO SCH (08:42)
[2016-08-15] MEDS: MULTIVITAMINS/MINERALS THERAP 1 TAB PO SCH (08:42)
[2016-08-15] MEDS: DIGOXIN 0.125 MG TAB PO SCH (08:42)
[2016-08-15] MEDS: predniSONE 10 MG TAB PO SCH (08:43)
[2016-08-15] MEDS: SENOKOT S TAB PO SCH ×2 (08:43→22:38)
[2016-08-15] MEDS: VITAMIN D 1,000 INTERNATIONAL UNITS TABLET PO SCH (08:43)
[2016-08-15] MEDS: AZITHROMYCIN 250 MG TAB PO SCH (08:43)
--- NOTE | 2016-08-15 10:24 | IPNPDOC ---
Subjective Date Seen The patient was seen on 08/15/16. Subjective Chief Complaint/HPI The patient is a 86-year-old female admitted with a reason for visit of Atrial Tachycardia. General: Denies: Chills, Fatigue, Malaise, Night Sweats, Normal Appetite, Other Symptoms, ROS Unobtainable Constitutional: Denies: Chills, Fatigue, Fever, Lethargy, Malaise, Night Sweats , Other, Weakness, Weight Loss Eyes: Denies: Conjunctivae inflammation, Eyelid inflammation, Other, Pain, Redness, Vision change ENT: Denies: Dysphagia, Ear Pain, Epistaxis, Head Aches, Other Symptoms, Post Nasal Drip, Sinus Congestion, Sore Throat Skin: Denies: Breakdown, Bruising, Dry, Itching, Jaundice, Lesions, Nail Changes, Other, Rash Pulmonary: Denies: Cough, Dyspnea, Other Symptoms, Pleuritic Chest Pain Cardiovascular: Denies: Chest Pain, Edema, Lt Headedness, Orthopnea, Other Symptoms, Palpitations, Paroxysmal Noc. Dyspnea Gastrointestinal: Denies: Abdominal Pain, Constipation, Diarrhea, Hematochezia , Melena, Nausea, Other Symptoms, Vomiting Objective Physical Examination General Exam: Positive: Alert, Cooperative, No Acute Distress, Other (elderly, frail) Eye Exam: Positive: Conjunctiva & lids normal, EOMI, PERRLA, Negative: Sclera icteric ENT Exam: Positive: Atraumatic Neck Exam: Positive: Supple Chest Exam: Positive: Clear to auscultation, Diminished Heart Exam: Positive: Rate Normal, Regular Rhythm Telemetry: Positive: No significant arrhythmia Abdomen Exam: Positive: Normal bowel sounds, Soft, Negative: Tenderness Psych Exam: Positive: Oriented x 3 Assessment /Plan Problems (1) Atrial tachycardia Status: Acute Discussed With: Patient Problem Specific Plan: Consult Specialist, Monitor Clinically Problem Text: Continue cardizem, digoxin. Did not tolerate flecainide as outpatient. Responding to well to very low dose cardizem 7.5mg q6h. Follow as per cardiology, assistance appreciated. (2) Interstitial lung disease Status: Chronic Problem Specific Plan: Monitor Clinically Problem Text: Follow with pulmonary - Dr. Mayer. Continue prednisone. (3) Depression Status: Chronic Problem Text: continue Paxil. (4) Nontuberculous mycobacterial infection Status: Chronic Problem Text: Continue Ethambutol. Plan/VTE VTE Prophylaxis Ordered?: Yes (mechanical) Plan Diet: Continue Current Therapy: PT Diagnostics: Repeat Labs in AM Anticipated Discharge: Home, Home With Services Advance Directives: DNR VS, I&O, 24H, Patricia Vital Signs/I&O Vital Signs Date Time Temp Pulse Resp B/P Pulse Ox O2 Delivery O2 Flow Rate FiO2 08/15/16 06:18 65 111/65 08/15/16 04:00 96.2 16 98 Nasal Cannula 2.0 I&O- Last 24 Hours up to 6 AM 08/15/16 06:00 Intake Total 920 ml Output Total 875 ml Balance 45 ml Laboratory Data 24H LABS Laboratory Tests 2 08/15/16 04:45: Anion Gap 7L, Blood Urea Nitrogen 15, Creatinine 0.47L, Sodium Level 140, Potassium Level 4.0, Chloride Level 97L, Carbon Dioxide Level 36H, Calcium Level 8.4L, Digoxin Level 1.0, Glomerular Filtration Rate > 60.0 CBC/BMP Laboratory Tests 08/15/16 04:45 Calcium Level 8.4 L, Red Blood Count 3.69 L, Mean Corpuscular Volume 87.4, Mean Corpuscular Hemoglobin 28.9, Mean Corpuscular Hemoglobin Concent 33.1, Red Cell Distribution Width 13.7 Microbiology Microbiology 08/07/16 Blood Culture - Final, Complete NO GROWTH AFTER 5 DAYS 08/09/16 Urine Culture - Final, Complete AALIYAH NAVA MD Aug 15, 2016 08:27
[2016-08-15 12:00] VITALS: BP 107/64
[2016-08-15 16:00] VITALS: BP_SYST 105; BP_SYST 123; BP_DIAS 67; BP_DIAS 68
[2016-08-15 20:00] VITALS: BP 108/61
--- NOTE | 2016-08-15 21:24 | IPN ---
DATE OF VISIT: 08/14/2016 Mrs. Adam is feeling well today. She has no complaints of pain, chest pain, shortness of breath, has been tolerating her diet, does not appreciate palpitations. Her did visit her today. I did discuss the case with him. PHYSICAL EXAMINATION: VITAL SIGNS: Temperature 97.3, pulse 63, respirations 18, blood pressure 132/65, 98% on 2 liters. Intake and output (I and O) notable for a negative fluid balance of minus 245, weight is 32 kg. GENERAL: She is awake, appropriately interactive, somewhat flattened affect. HEENT: Moist mucous membranes. Cachexic appearing. NECK: Supple. LUNGS: Breathing is symmetrical, respiratory I:E ratio is 1:3. No accessory muscle use. HEART: There is a palpable apical pulse in the left chest . She is not tachycardic. There have been episodes of tachycardia noted on telemetry. ABDOMEN: Soft, nontender. LABORATORY DATA: White cell count 8.5, hemoglobin 10.7, BUN 14, creatinine 0.5. ASSESSMENT: This is an 86-year-old with atrial flutter and rapid ventricular response at the time of presentation who continues to experience episodes of narrow complex tachycardia, especially with activity, on digoxin and now with a small dose of Cardizem. PLAN: 1. Cardiovascular. The patient is now on Cardizem and digoxin, we will monitor on telemetry. I have asked Dr. Lal to reevaluate the patient today. The patient had been on flecainide at home which she did not tolerate. The patient has previously not tolerated a large dose of Cardizem which caused hypotension. Beta axel is relatively contraindicated in the setting of her chronic interstitial lung disease. 2. The patient has depression. She has been started on Prozac in the hospital which I will increase the dose of today. She recently lost her daughter which has been quite a blow to her. She has always been quite small, maximum weight somewhere less than 115 pounds at its highest. She has lost weight since the of her daughter which occurred sometime in the last six months. 3. The patient has chronic interstitial lung disease. 4. The patient has nontuberculosis mycobacterium. She is on her home regimen of antibiotics which are planned to be continued until April 2017, a combination of azithromycin and digoxin can tend to increase digoxin levels. Previous digoxin level when checked was nontoxic. 5. The patient has protein calorie malnutrition. Encourage the use of chocolate Ensure. Prealbumin is 17. 6.The patient has severe mitral regurgitation. 7.The patient has deep venous thrombosis (DVT) prophylaxis. 8. The patient is being followed by physical therapy. My suspicion is that the patient will require subacute rehabilitation at the time of discharge. I did discuss this with the patient's in person.
[2016-08-15] MEDS: PARoxetine 10MG TABLET PO SCH (22:38)
[2016-08-15] MEDS: diphenhydrAMINE 12.5MG/5ML ELIXIR UDC PO PRN (22:38)
[2016-08-16] VITALS (8 sets, daily range): BP systolic 108–140; BP diastolic 57–66
[2016-08-16 05:54] LABS: MEAN CORPUSCULAR HEMOGLOBIN 29.1 pg (27.0-33.0); MEAN CORPUSCULAR HGB CONC 32.9 g/dl (32.0-36.5); MEAN CORPUSCULAR VOLUME 88.5 fl (80.0-96.0); RED CELL DISTRIBUTION WIDTH 13.9 % (11.5-14.5)
[2016-08-16 06:11] LABS: ANION GAP 4 MEQ/L (8-16); BLOOD UREA NITROGEN 15 MG/DL (7-18); CALCIUM LEVEL 8.6 MG/DL (8.8-10.2); CARBON DIOXIDE LEVEL 38 MEQ/L (21-32); CHLORIDE LEVEL 97 MEQ/L (98-107); CREATININE FOR GFR 0.51 MG/DL (0.55-1.02); GLOMERULAR FILTRATION RATE > 60.0 (>32); GLUCOSE, FASTING 77 MG/DL (83-110); POTASSIUM SERUM 3.7 MEQ/L (3.5-5.1); SODIUM LEVEL 139 MEQ/L (136-145)
[2016-08-16] MEDS: SLF 3 ML SYR IV SCH ×3 (06:55→20:40)
[2016-08-16] MEDS: FLUTICASONE HFA 44 MCG 10.6GM INHALER (FLOVENT) INH SCH ×2 (07:38→21:04)
[2016-08-16] MEDS: predniSONE 10 MG TAB PO SCH (08:41)
[2016-08-16] MEDS: ETHAMBUTOL 400MG TAB PO SCH (08:42)
[2016-08-16] MEDS: AZITHROMYCIN 250 MG TAB PO SCH (08:42)
[2016-08-16] MEDS: VITAMIN D 1,000 INTERNATIONAL UNITS TABLET PO SCH (08:42)
[2016-08-16] MEDS: DIGOXIN 0.125 MG TAB PO SCH (08:42)
[2016-08-16] MEDS: SENOKOT S TAB PO SCH ×2 (08:42→20:39)
[2016-08-16] MEDS: MULTIVITAMINS/MINERALS THERAP 1 TAB PO SCH (08:42)
[2016-08-16] MEDS ORDERED: DILT30TA PO (10:13)
[2016-08-16] MEDS ORDERED: DIGO0.12 PO (10:13)
[2016-08-16] MEDS ORDERED: PARO5TAB PO (10:13)
[2016-08-16] MEDS: PARoxetine 10MG TABLET PO SCH (20:39)
[2016-08-16] MEDS: diphenhydrAMINE 12.5MG/5ML ELIXIR UDC PO PRN (21:07)
[2016-08-17 04:00] VITALS: BP 140/63
[2016-08-17 05:44] LABS: MEAN CORPUSCULAR HEMOGLOBIN 28.7 pg (27.0-33.0); MEAN CORPUSCULAR HGB CONC 32.4 g/dl (32.0-36.5); MEAN CORPUSCULAR VOLUME 88.8 fl (80.0-96.0); RED CELL DISTRIBUTION WIDTH 13.9 % (11.5-14.5); WHITE BLOOD COUNT 11.8 K/mm3 (4.0-10.0)
[2016-08-17 06:03] LABS: ANION GAP 4 MEQ/L (8-16); BLOOD UREA NITROGEN 14 MG/DL (7-18); CALCIUM LEVEL 8.4 MG/DL (8.8-10.2); CARBON DIOXIDE LEVEL 36 MEQ/L (21-32); CHLORIDE LEVEL 97 MEQ/L (98-107); CREATININE FOR GFR 0.43 MG/DL (0.55-1.02); GLOMERULAR FILTRATION RATE > 60.0 (>32); GLUCOSE, FASTING 79 MG/DL (83-110); POTASSIUM SERUM 3.6 MEQ/L (3.5-5.1); SODIUM LEVEL 137 MEQ/L (136-145)
[2016-08-17] MEDS: SLF 3 ML SYR IV SCH (06:24)
--- NOTE | 2016-08-17 07:02 | IPNPDOC ---
Subjective Date Seen The patient was seen on 08/16/16. Subjective Chief Complaint/HPI The patient is a 86-year-old female admitted with a reason for visit of Atrial Tachycardia. General: Denies: Chills, Fatigue, Malaise, Night Sweats, Normal Appetite, Other Symptoms, ROS Unobtainable Constitutional: Denies: Chills, Fatigue, Fever, Lethargy, Malaise, Night Sweats , Other, Weakness, Weight Loss Eyes: Denies: Conjunctivae inflammation, Eyelid inflammation, Other, Pain, Redness, Vision change ENT: Denies: Dysphagia, Ear Pain, Epistaxis, Head Aches, Other Symptoms, Post Nasal Drip, Sinus Congestion, Sore Throat Skin: Denies: Breakdown, Bruising, Dry, Itching, Jaundice, Lesions, Nail Changes, Other, Rash Pulmonary: Denies: Cough, Dyspnea, Other Symptoms, Pleuritic Chest Pain Cardiovascular: Denies: Chest Pain, Edema, Lt Headedness, Orthopnea, Other Symptoms, Palpitations, Paroxysmal Noc. Dyspnea Objective Physical Examination General Exam: Positive: Alert, Cooperative, No Acute Distress, Other (elderly, frail) Eye Exam: Positive: Conjunctiva & lids normal, EOMI, PERRLA, Negative: Sclera icteric ENT Exam: Positive: Atraumatic Neck Exam: Positive: Supple Chest Exam: Positive: Clear to auscultation, Diminished Heart Exam: Positive: Rate Normal, Regular Rhythm Telemetry: Positive: No significant arrhythmia Abdomen Exam: Positive: Normal bowel sounds, Soft, Negative: Tenderness Psych Exam: Positive: Oriented x 3 Assessment /Plan Problems (1) Atrial tachycardia Status: Resolved Discussed With: Ethylbenzene Converter Operator, Patient Problem Specific Plan: Consult Specialist, Monitor Clinically Problem Text: Continue cardizem, digoxin. Did not tolerate flecainide as outpatient. Responding to well to very low dose cardizem 7.5mg q6h. Follow as per cardiology, assistance appreciated. (2) Interstitial lung disease Status: Chronic Problem Specific Plan: Monitor Clinically Problem Text: Follow with pulmonary - Dr. Mayer. Continue prednisone. (3) Depression Status: Chronic Problem Text: continue Paxil. (4) Nontuberculous mycobacterial infection Status: Chronic Problem Text: Continue Ethambutol. Plan/VTE VTE Prophylaxis Ordered?: Yes (mechanical) Plan Diet: Continue Current Therapy: PT Anticipated Discharge: Home, Home With Services Advance Directives: DNR VS, I&O, 24H, Fishbone Vital Signs/I&O Vital Signs Date Time Temp Pulse Resp B/P Pulse Ox O2 Delivery O2 Flow Rate FiO2 08/17/16 06:19 59 08/17/16 04:00 96.7 18 140/63 99 Nasal Cannula 2.0 I&O- Last 24 Hours up to 6 AM 08/17/16 06:00 Intake Total 700 ml Output Total 1120 ml Balance -420 ml Laboratory Data 24H LABS Laboratory Tests 2 08/17/16 05:04: Anion Gap 4L, Blood Urea Nitrogen 14, Creatinine 0.43L, Sodium Level 137, Potassium Level 3.6, Chloride Level 97L, Carbon Dioxide Level 36H, Calcium Level 8.4L, Glomerular Filtration Rate > 60.0 CBC/BMP Laboratory Tests 08/17/16 05:04 Calcium Level 8.4 L, Red Blood Count 3.72 L, Mean Corpuscular Volume 88.8, Mean Corpuscular Hemoglobin 28.7, Mean Corpuscular Hemoglobin Concent 32.4, Red Cell Distribution Width 13.9 Microbiology Microbiology 08/07/16 Blood Culture - Final, Complete NO GROWTH AFTER 5 DAYS 08/09/16 Urine Culture - Final, Complete AALIYAH NAVA MD Aug 17, 2016 07:02
[2016-08-17] MEDS: FLUTICASONE HFA 44 MCG 10.6GM INHALER (FLOVENT) INH SCH ×2 (07:13→19:33)
[2016-08-17 07:40] VITALS: BP 129/72
--- NOTE | 2016-08-17 08:17 | IPNPDOC ---
Subjective Date Seen The patient was seen on 08/17/16. Subjective Chief Complaint/HPI The patient is a 86-year-old female admitted with a reason for visit of Atrial Tachycardia. General: Denies: Chills, Fatigue, Malaise, Night Sweats, Normal Appetite, Other Symptoms, ROS Unobtainable Constitutional: Denies: Chills, Fatigue, Fever, Lethargy, Malaise, Night Sweats , Other, Weakness, Weight Loss Eyes: Denies: Conjunctivae inflammation, Eyelid inflammation, Other, Pain, Redness, Vision change ENT: Denies: Dysphagia, Ear Pain, Epistaxis, Head Aches, Other Symptoms, Post Nasal Drip, Sinus Congestion, Sore Throat Skin: Denies: Breakdown, Bruising, Dry, Itching, Jaundice, Lesions, Nail Changes, Other, Rash Pulmonary: Denies: Cough, Dyspnea, Other Symptoms, Pleuritic Chest Pain Cardiovascular: Denies: Chest Pain, Edema, Lt Headedness, Orthopnea, Other Symptoms, Palpitations, Paroxysmal Noc. Dyspnea Gastrointestinal: Denies: Abdominal Pain, Constipation, Diarrhea, Hematochezia , Melena, Nausea, Other Symptoms, Vomiting Genitourinary: Denies: Dysuria, Frequency, Hematuria, Incontinence, Other Symptoms, Retention Objective Physical Examination General Exam: Positive: Alert, Cooperative, No Acute Distress, Other (elderly, frail) Eye Exam: Positive: Conjunctiva & lids normal, EOMI, PERRLA, Negative: Sclera icteric ENT Exam: Positive: Atraumatic Neck Exam: Positive: Supple Chest Exam: Positive: Clear to auscultation, Diminished Heart Exam: Positive: Rate Normal, Regular Rhythm Telemetry: Positive: No significant arrhythmia Abdomen Exam: Positive: Normal bowel sounds, Soft, Negative: Tenderness Psych Exam: Positive: Oriented x 3 Assessment /Plan Problems (1) Atrial tachycardia Status: Resolved Discussed With: Diesel Retrofit Installer, Patient Problem Specific Plan: Consult Specialist, Monitor Clinically Problem Text: Continue cardizem, digoxin. Did not tolerate flecainide as outpatient. Responding to well to very low dose cardizem 7.5mg q6h. Follow as per cardiology, assistance appreciated. (2) Interstitial lung disease Status: Chronic Problem Specific Plan: Monitor Clinically Problem Text: Follow with pulmonary - Dr. Mayer. Continue prednisone. (3) Depression Status: Chronic Problem Text: continue Paxil. (4) Nontuberculous mycobacterial infection Status: Chronic Problem Text: Continue Ethambutol. Plan/VTE VTE Prophylaxis Ordered?: Yes (mechanical) Plan Diet: Continue Current Therapy: PT Anticipated Discharge: Home, Home With Services Advance Directives: DNR Disposition Does not want to be discharged today. She would like to go home tomorrow. VS, I&O, 24H, Fishbone Vital Signs/I&O Vital Signs Date Time Temp Pulse Resp B/P Pulse Ox O2 Delivery O2 Flow Rate FiO2 08/17/16 06:19 59 08/17/16 04:00 96.7 18 140/63 99 Nasal Cannula 2.0 I&O- Last 24 Hours up to 6 AM 08/17/16 06:00 Intake Total 700 ml Output Total 1120 ml Balance -420 ml Laboratory Data 24H LABS Laboratory Tests 2 08/17/16 05:04: Anion Gap 4L, Blood Urea Nitrogen 14, Creatinine 0.43L, Sodium Level 137, Potassium Level 3.6, Chloride Level 97L, Carbon Dioxide Level 36H, Calcium Level 8.4L, Glomerular Filtration Rate > 60.0 CBC/BMP Laboratory Tests 08/17/16 05:04 Calcium Level 8.4 L, Red Blood Count 3.72 L, Mean Corpuscular Volume 88.8, Mean Corpuscular Hemoglobin 28.7, Mean Corpuscular Hemoglobin Concent 32.4, Red Cell Distribution Width 13.9 Microbiology Microbiology 08/07/16 Blood Culture - Final, Complete NO GROWTH AFTER 5 DAYS 08/09/16 Urine Culture - Final, Complete AALIYAH NAVA MD Aug 17, 2016 08:17
[2016-08-17] MEDS: VITAMIN D 1,000 INTERNATIONAL UNITS TABLET PO SCH (09:03)
[2016-08-17] MEDS: predniSONE 10 MG TAB PO SCH (09:03)
[2016-08-17] MEDS: ETHAMBUTOL 400MG TAB PO SCH (09:03)
[2016-08-17] MEDS: SENOKOT S TAB PO SCH ×2 (09:04→20:30)
[2016-08-17] MEDS: MULTIVITAMINS/MINERALS THERAP 1 TAB PO SCH (09:04)
[2016-08-17] MEDS: AZITHROMYCIN 250 MG TAB PO SCH (09:04)
[2016-08-17] MEDS: DIGOXIN 0.125 MG TAB PO SCH (09:04)
[2016-08-17 12:16] VITALS: BP 112/57
[2016-08-17 13:10] VITALS: BP 123/58
[2016-08-17] MEDS: ACETAMINOPHEN TAB 650MG DOSE (2X325MG) PO PRN (14:13)
[2016-08-17] MEDS: PARoxetine 10MG TABLET PO SCH (20:30)
[2016-08-17 20:45] VITALS: BP 118/56
[2016-08-17] MEDS: diphenhydrAMINE 12.5MG/5ML ELIXIR UDC PO PRN (23:13)
[2016-08-18 05:15] VITALS: BP 128/59
[2016-08-18 05:28] VITALS: BP 128/59
[2016-08-18] MEDS: FLUTICASONE HFA 44 MCG 10.6GM INHALER (FLOVENT) INH SCH (08:06)
[2016-08-18] MEDS: ETHAMBUTOL 400MG TAB PO SCH (08:09)
[2016-08-18] MEDS: SENOKOT S TAB PO SCH (08:09)
[2016-08-18] MEDS: AZITHROMYCIN 250 MG TAB PO SCH (08:10)
[2016-08-18] MEDS: VITAMIN D 1,000 INTERNATIONAL UNITS TABLET PO SCH (08:10)
[2016-08-18] MEDS: DIGOXIN 0.125 MG TAB PO SCH (08:10)
[2016-08-18] MEDS: MULTIVITAMINS/MINERALS THERAP 1 TAB PO SCH (08:10)
[2016-08-18] MEDS: predniSONE 10 MG TAB PO SCH (08:11)
[2016-08-18] MEDS ORDERED: DILT30TA PO (10:22)
--- NOTE | 2016-08-18 10:33 | DS.PDOC ---
Discharge Summary General Date of Admission Aug 09, 2016 at 06:38 Date of Discharge Aug 18, 2016 Discharge Summary PROCEDURES PERFORMED DURING STAY: [None.] CHIEF COMPLAINT: Atrial Tachycardia ADMISSION DIAGNOSES: 1. Atrial tachycardia 2. Interstitial lung disease 3. Depression 4. Nontuberculous mycobacterial infection DISCHARGE DIAGNOSES: 1. Atrial tachycardia 2. Interstitial lung disease 3. Depression 4. Nontuberculous mycobacterial infection HISTORY OF PRESENT ILLNESS: Patient is a 86-year-old female presenting for palpitations, dyspnea on exertion, dizziness and shortness of breath. HOSPITAL COURSE: Patient was admitted for atrial tachycardia. Patient follows with cardiology, and was recently started on flecainide which was not tolerated secondary to adverse effects including shortness of breath, dizziness and headaches. Patient was evaluated by cardiology as inpatient. She was started on very low dose cardizem at 7.4mg q6h which she tolerated well, in addition to digoxin. Hospital stay was otherwise unremarkable. Patient was discharged in stable condition with instructions as indicated. DISCHARGE MEDICATIONS: Please see below. ALLERGIES: Please see below. PHYSICAL EXAMINATION ON DISCHARGE: VITAL SIGNS: Please see below. GENERAL: NAD, elderly, frail HEENT: NC/AT, EOMI, PERRL NECK: supple CARDIOVASCULAR EXAMINATION: +S1S2, RRR RESPIRATORY EXAMINATION: CTA B/L ABDOMINAL EXAMINATION: soft, NT, +BS EXTREMITIES: no edema PSYCHIATRIC EXAMINATION: AAOx3 LABORATORY DATA: Please see below. DISCHARGE CONDITION: Stable. DISPOSITION: Discharge home with services. ACTIVITY: As tolerated. DIET: regular diet DISCHARGE PLAN AND INSTRUCTIONS: 1. Follow up with PCP as scheduled. 2. Follow up with cardiology as scheduled. 3. Medications as directed. TIME SPENT ON DISCHARGE: Greater than 30 minutes. Vital Signs/I&Os Vital Signs Date Time Temp Pulse Resp B/P Pulse Ox O2 Delivery O2 Flow Rate FiO2 08/18/16 08:10 64 08/18/16 08:00 Nasal Cannula 2.0 08/18/16 05:28 128/59 08/18/16 05:15 97.6 18 99 I&O- Last 24 Hours up to 6 AM 08/18/16 06:00 Intake Total 600 ml Output Total 950 ml Balance -350 ml Microbiology Microbiology 08/09/16 Urine Culture - Final, Complete Medications Scheduled Azithromycin (Azithromycin) 250 Mg Tab 250 MG PO DAILY Beclomethasone Dipropionate (Qvar) 80 Mcg/Act Aer 80 MCG INH BID Calcium/Vitamin D (Calcium 600 + D 600-400 mg-Unit) 1 Tab Tab 1 TAB PO DAILY Cholecalciferol (Vitamin D-3) 1,000 Unit Tab 1,000 UNIT PO DAILY Cranberry Extract (Cranberry) 500 Mg Cap 500 MG PO DAILY Digoxin (Digoxin) 0.125 Mg Tab 0.125 MG PO DAILY Diltiazem HCl (Diltiazem HCl) 30 Mg Tab 7.5 MG PO Q12H Ethambutol HCl (Ethambutol HCl) 400 Mg Tab 800 MG PO DAILY Multivitamins *[facility] STOCKED* (Thera M Plus *[facility] STOCKED*) 1 Tab Tab 1 TAB PO DAILY Paroxetine (Paroxetine HCl) 5 Mg Halftab 10 MG PO QHS Prednisone (Prednisone) 10 Mg Tab 10 MG PO DAILY Allergies Coded Allergies: No Known Allergies (Unverified , 11/17/14) AALIYAH NAVA MD Aug 18, 2016 10:33
== END 2016-08-18 11:59 | disposition home or self-care (01) | DRG 309 ==
LOC: M ED 11:07 → M ED INP 13:24 → M PCU 19:14 → OBSVTOIN 08-09 06:38 → M MSPAV 08-17 13:22
PROVIDERS: ADMIT Internal Medicine; ATTEND Internal Medicine
DX: I47.1 Supraventricular tachycardia (principal); A31.9 Mycobacterial infection, unspecified; J84.9 Interstitial pulmonary disease, unspecified; E46 Unspecified protein-calorie malnutrition; Z68.1 Body mass index [BMI] 19.9 or less, adult; Z66 Do not resuscitate; I48.92 Unspecified atrial flutter; I34.0 Nonrheumatic mitral (valve) insufficiency; G47.00 Insomnia, unspecified; F32.9 Major depressive disorder, single episode, unspecified; Z79.52 Long term (current) use of systemic steroids; Z79.899 Other long term (current) drug therapy; Z90.710 Acquired absence of both cervix and uterus; Z80.1 Family history of malignant neoplasm of trachea, bronchus and lung; Z80.41 Family history of malignant neoplasm of ovary; Z80.0 Family history of malignant neoplasm of digestive organs

== ENCOUNTER → 2016-08-30 | Outpatient (REF) ==
[~2016-08-30] MED LIST changes: +DIGO0.12 PO; +DILT30TA PO; +PARO5TAB PO
[2016-08-30 10:51] LABS: MEAN CORPUSCULAR HEMOGLOBIN 28.3 pg (27.0-33.0); MEAN CORPUSCULAR HGB CONC 31.8 g/dl (32.0-36.5); MEAN CORPUSCULAR VOLUME 88.9 fl (80.0-96.0); RED CELL DISTRIBUTION WIDTH 13.9 % (11.5-14.5); WHITE BLOOD COUNT 13.2 K/mm3 (4.0-10.0)
[2016-08-30 11:28] LABS: ANION GAP 8 MEQ/L (8-16); BLOOD UREA NITROGEN 19 MG/DL (7-18); CARBON DIOXIDE LEVEL 35 MEQ/L (21-32); CHLORIDE LEVEL 95 MEQ/L (98-107); GLOMERULAR FILTRATION RATE > 60.0 (>32); GLUCOSE, FASTING 116 MG/DL (83-110); POTASSIUM SERUM 3.6 MEQ/L (3.5-5.1); SODIUM LEVEL 138 MEQ/L (136-145)
== END ==
PROVIDERS: ATTEND Internal Medicine
DX: D72.829 Elevated white blood cell count, unspecified (principal)

== ENCOUNTER → 2016-09-01 | Outpatient (REF) ==
[2016-09-01 12:03] LABS: MEAN CORPUSCULAR HEMOGLOBIN 28.4 pg (27.0-33.0); MEAN CORPUSCULAR HGB CONC 31.4 g/dl (32.0-36.5); MEAN CORPUSCULAR VOLUME 90.4 fl (80.0-96.0); WHITE BLOOD COUNT 12.6 K/mm3 (4.0-10.0)
== END ==
PROVIDERS: ATTEND Internal Medicine
DX: D72.829 Elevated white blood cell count, unspecified (principal)

== ENCOUNTER → 2016-09-06 | Outpatient (REF) ==
[2016-09-06 12:52] LABS: MEAN CORPUSCULAR HEMOGLOBIN 29.3 pg (27.0-33.0); MEAN CORPUSCULAR HGB CONC 32.4 g/dl (32.0-36.5); MEAN CORPUSCULAR VOLUME 90.5 fl (80.0-96.0); RED CELL DISTRIBUTION WIDTH 14.1 % (11.5-14.5)
[2016-09-06 13:09] LABS: ANION GAP 7 MEQ/L (8-16); BLOOD UREA NITROGEN 21 MG/DL (7-18); CALCIUM LEVEL 8.8 MG/DL (8.8-10.2); CARBON DIOXIDE LEVEL 35 MEQ/L (21-32); CHLORIDE LEVEL 94 MEQ/L (98-107); GLOMERULAR FILTRATION RATE > 60.0 (>32); GLUCOSE, FASTING 112 MG/DL (83-110); POTASSIUM SERUM 3.6 MEQ/L (3.5-5.1); SODIUM LEVEL 136 MEQ/L (136-145)
== END ==
PROVIDERS: ATTEND Internal Medicine
DX: Z00.00 Encounter for general adult medical examination without abnormal findings (principal)

== ENCOUNTER → 2016-09-07 | Outpatient (REF) ==
--- NOTE | 2016-09-07 16:07 | REP ---
SINGLE PA VIEW OF CHEST: REASON: Leukocytosis. COMPARISON: Multiple, the latest 08/07/2016, a portable exam. AP upright technique was utilized. The technique utilized in obtaining the radiograph has magnified the cardiac silhouette and accentuated the interstitial markings. Cardiomediastinal silhouette is unchanged. Mild cardiomegaly is suspected and accentuated by technique. Marked chronic changes are again seen throughout the lung reyna status quo. No acute patchy parenchymal opacities or pleural effusions seem to have developed on this limited exam. There is no significant change in appearance of the osseous structures. IMPRESSION: Stable appearing chronic changes as described above without plain radiographic evidence of acute cardiopulmonary disease. Signed by Mingo Ramirez DO 09/07/2016 04:56 P
== END ==
PROVIDERS: ATTEND Internal Medicine
DX: D72.829 Elevated white blood cell count, unspecified (principal)

== ENCOUNTER → 2016-09-20 | Outpatient (REF) ==
[2016-09-20 11:04] LABS: MEAN CORPUSCULAR HEMOGLOBIN 28.6 pg (27.0-33.0); MEAN CORPUSCULAR HGB CONC 32.1 g/dl (32.0-36.5); MEAN CORPUSCULAR VOLUME 89.2 fl (80.0-96.0); RED CELL DISTRIBUTION WIDTH 13.1 % (11.5-14.5); WHITE BLOOD COUNT 16.4 K/mm3 (4.0-10.0)
[2016-09-20 11:09] LABS: ANION GAP 8 MEQ/L (8-16); BLOOD UREA NITROGEN 23 MG/DL (7-18); CARBON DIOXIDE LEVEL 33 MEQ/L (21-32); CHLORIDE LEVEL 97 MEQ/L (98-107); CREATININE FOR GFR 0.47 MG/DL (0.55-1.02); GLOMERULAR FILTRATION RATE > 60.0 (>32); GLUCOSE, FASTING 95 MG/DL (83-110); POTASSIUM SERUM 3.4 MEQ/L (3.5-5.1); SODIUM LEVEL 138 MEQ/L (136-145)
== END ==
PROVIDERS: ATTEND Internal Medicine
DX: J84.9 Interstitial pulmonary disease, unspecified (principal)

== ENCOUNTER → 2016-09-27 | Outpatient (REF) | payer MEDICARE ==
[2016-09-27 15:17] LABS: ANION GAP 8 MEQ/L (8-16); BLOOD UREA NITROGEN 21 MG/DL (7-18); CALCIUM LEVEL 9.1 MG/DL (8.8-10.2); CARBON DIOXIDE LEVEL 32 MEQ/L (21-32); CHLORIDE LEVEL 94 MEQ/L (98-107); CREATININE FOR GFR 0.53 MG/DL (0.55-1.02); GLOMERULAR FILTRATION RATE > 60.0 (>32); GLUCOSE, FASTING 150 MG/DL (83-110); MEAN CORPUSCULAR HEMOGLOBIN 28.4 pg (27.0-33.0); MEAN CORPUSCULAR HGB CONC 31.2 g/dl (32.0-36.5); MEAN CORPUSCULAR VOLUME 91.2 fl (80.0-96.0); POTASSIUM SERUM 4.2 MEQ/L (3.5-5.1); RED CELL DISTRIBUTION WIDTH 13.6 % (11.5-14.5); SODIUM LEVEL 134 MEQ/L (136-145); WHITE BLOOD COUNT 19.2 K/mm3 (4.0-10.0)
== END ==
PROVIDERS: ATTEND Internal Medicine
DX: J84.9 Interstitial pulmonary disease, unspecified (principal)

== ENCOUNTER → 2016-10-02 | Outpatient (REF) ==
--- NOTE | 2016-10-02 16:39 | REP ---
AP PELVIS: 10/02/2016. Comparison: Left hip 05/03/2006, AP pelvis 04/28/2004. Clinical history: Status post fall. Hip abrasion. Evaluate for fracture. Findings. A stat portable pelvic x-ray was performed. The pelvis is rotated with asymmetry of the pelvic ring and with the ischial spine on the right projecting medially more than on the left. There is no evidence of fracture of the femoral head, neck or trochanters on either side. There are degenerative changes at both hip joint spaces with slightly more narrowing on the left than right and with rim osteophytes the acetabular margin and femoral head on the right and left. Bones demineralized. Symphysis pubis grossly intact. The left pubic rami are intact. The inferior pubic ramus on the right grossly intact, but due to obliquity the superior pubic ramus and its junction with the acetabulum poorly depicted and I could not define the anatomy well or completely exclude a fracture. Iliac wings intact. SI joints and sacral ala grossly intact. Stool and gas overlie central pelvis and lower abdomen. This may diminish the sensitivity of the exam as well. Impression: 1. No visible displaced fracture with degenerative changes of the hips, left greater than right, but with the patient rotated on this portable image and this limits the evaluation of the superior pubic ramus junction with the acetabulum. I could not exclude a nondisplaced or minimally displaced fracture there. The lines overlying may be related to bowel loops projecting over this region because of obliquity. A repeat AP pelvis with inlet and outlet views and dedicated right hip may be helpful. Signed by Renaldo Cristina MD 10/02/2016 05:25 P
== END ==
PROVIDERS: ATTEND Internal Medicine
DX: M25.551 Pain in right hip (principal); X58.XXXA Exposure to other specified factors, initial encounter; W19.XXXA Unspecified fall, initial encounter; Y93.9 Activity, unspecified; Y92.9 Unspecified place or not applicable; Y99.8 Other external cause status

== ENCOUNTER → 2016-10-24 | Outpatient (REF) | payer MEDICARE ==
[2016-10-24 11:58] LABS: ALBUMIN 2.8 GM/DL (3.2-5.2); ALBUMIN/GLOBULIN RATIO 0.72 (1.00-1.93); ALKALINE PHOSPHATASE 94 U/L (45-117); ALT/SGPT 24 U/L (12-78); ANION GAP 9 MEQ/L (8-16); AST/SGOT 22 U/L (15-37); BILIRUBIN,TOTAL 0.3 MG/DL (0.2-1.0); BLOOD UREA NITROGEN 20 MG/DL (7-18); CALCIUM LEVEL 9.2 MG/DL (8.8-10.2); CARBON DIOXIDE LEVEL 33 MEQ/L (21-32); CHLORIDE LEVEL 97 MEQ/L (98-107); CREATININE FOR GFR 0.46 MG/DL (0.55-1.02); GLOMERULAR FILTRATION RATE > 60.0 (>32); GLUCOSE, FASTING 119 MG/DL (83-110); POTASSIUM SERUM 3.7 MEQ/L (3.5-5.1); SODIUM LEVEL 139 MEQ/L (136-145); TOTAL PROTEIN 6.7 GM/DL (6.4-8.2)
[2016-10-24 13:20] LABS: MEAN CORPUSCULAR HEMOGLOBIN 29.1 pg (27.0-33.0); MEAN CORPUSCULAR HGB CONC 31.5 g/dl (32.0-36.5); MEAN CORPUSCULAR VOLUME 92.2 fl (80.0-96.0); RED CELL DISTRIBUTION WIDTH 12.9 % (11.5-14.5); WHITE BLOOD COUNT 15.6 K/mm3 (4.0-10.0)
== END ==
PROVIDERS: ATTEND Internal Medicine
DX: J18.9 Pneumonia, unspecified organism (principal)

== ENCOUNTER → 2016-11-01 | Outpatient (REF) | PROVIDERS: ATTEND Internal Medicine | DX: J18.9 Pneumonia, unspecified organism (principal) ==

== ENCOUNTER 2016-11-16 18:12 | Inpatient (IN) | payer MEDICARE ==
[~2016-11-16] VITALS: Ht 149.9 cm; Wt 37.8 kg
[2016-11-16] MEDS ORDERED: TETANUS/DIPHTHERIA TOX ADSORB ADULT 0.5ML SYR/VIAL (90714) IM ONE (19:15)
[2016-11-16 19:38] LABS: BASO % 0.2 % (0.0-1.0); EOS # 0.1 K/mm3 (0.0-0.50); EOS % 0.7 % (0.0-3.0); LARGE UNSTAINED CELL # 0.2 K/mm3 (0.0-0.4); LARGE UNSTAINED CELL % 1.3 % (0.0-4.0); LYMPH # 1.1 K/mm3 (1.5-4.5); LYMPH % 8.5 % (24.0-44.0); MEAN CORPUSCULAR HEMOGLOBIN 28.7 pg (27.0-33.0); MEAN CORPUSCULAR HGB CONC 33.2 g/dl (32.0-36.5); MEAN CORPUSCULAR VOLUME 86.5 fl (80.0-96.0); MONO # 0.7 K/mm3 (0.0-0.8); MONO % 5.4 % (0.0-5.0); NEUTROPHILS # 10.5 K/mm3 (1.8-7.7); NEUTROPHILS % 83.9 % (36.0-66.0); PLATELET COUNT, AUTOMATED 385 k/mm3 (150-450); RED CELL DISTRIBUTION WIDTH 13.1 % (11.5-14.5); WHITE BLOOD COUNT 12.5 K/mm3 (4.0-10.0)
--- NOTE | 2016-11-16 19:50 | REP ---
Clinical: Trauma. Fall. Technique: AP and lateral views of the left tibia / fibula. Findings: Age-related osteopenia and degenerative changes are appreciated. No obvious acute fracture or dislocation. Impression: No acute fracture dislocation. Signed by Abdelrahman Zamarripa MD 11/16/2016 07:42 P
[2016-11-16] MEDS ORDERED: ACETAMINOPHEN TAB 650MG DOSE (2X325MG) PO ONE (20:00)
[2016-11-16 20:04] LABS: ANION GAP 6 MEQ/L (8-16); BLOOD UREA NITROGEN 21 MG/DL (7-18); CALCIUM LEVEL 8.9 MG/DL (8.8-10.2); CARBON DIOXIDE LEVEL 35 MEQ/L (21-32); CHLORIDE LEVEL 100 MEQ/L (98-107); CREATININE FOR GFR 0.53 MG/DL (0.55-1.02); GLOMERULAR FILTRATION RATE > 60.0 (>32); GLUCOSE, FASTING 105 MG/DL (83-110); POTASSIUM SERUM 3.9 MEQ/L (3.5-5.1); SODIUM LEVEL 141 MEQ/L (136-145)
[2016-11-16] MEDS ORDERED: DIGO0.12 PO (20:52)
[2016-11-16] MEDS ORDERED: DILT30TA PO (20:52)
[2016-11-16] MEDS ORDERED: PARO10TA84 PO (20:52)
[2016-11-16] MEDS ORDERED: PATIENT COMMENT (20:53)
[2016-11-16] MEDS: NS 1,000 ML IV SCH (21:39)
[2016-11-16] MEDS ORDERED: ACETAMINOPHEN TAB 650MG DOSE (2X325MG) PO PRN (21:45)
[2016-11-17 01:54] VITALS: BP 147/69
--- NOTE | 2016-11-17 02:43 | HPE ---
DATE OF ADMISSION: 11/16/2016 PRIMARY CARE PROVIDER: Dr. Romo. REASON FOR ADMISSION: Fall. HISTORY OF PRESENT ILLNESS: The patient is an 86-year-old female who was recently discharged from the hospital after she was admitted for a fall. She was discharged to [facility] for rehabilitation. She spent 2 months at [facility] and was discharged earlier today. Upon discharge, the patient returned to her home where she lives with her , who is unable to take care of her. She experienced a ground-level fall resulting in lower extremity trauma and skin abrasions. Family brought her into the emergency room stating that the patient could no longer live at home and that she would need placement in a long-term facility. Upon admission, the patient denied any chest pain or shortness of breath. No nausea or vomiting. No fevers or chills. She denied a syncopal episode during the fall. She stated she felt weak and a little lightheaded and then she fell. The patient was seen by social workers in the emergency room and family had signed a form to admit the patient for possible social admission. REVIEW OF SYSTEMS: 12-point review of systems was obtained all of which was negative except for those mentioned above. PAST MEDICAL HISTORY: Significant for: 1. Interstitial lung disease on 2 liters of oxygen at home. 2. Tachycardia. 3. History of dementia. 4. Hard of hearing. PAST SURGICAL HISTORY: Significant for: 1. Hysterectomy. 2. Bilateral cataract surgery. ALLERGIES: None. SOCIAL HISTORY: The patient lived at home with her prior to hospitalization. No tobacco or alcohol use. MEDICATIONS: Include: - vitamin D3 by mouth daily - digoxin 0.125 mg by mouth daily - diltiazem 7.5 mg twice a day - multivitamin one tablet daily - paroxetine 10 mg at bedtime - prednisone 10 mg daily FAMILY HISTORY: Noncontributory. PHYSICAL EXAMINATION ON ADMISSION: Vital signs: Temperature 98.3, pulse 73, respiratory rate 20, blood pressure 138/76, pulse oximetry 97% on 2 liters nasal cannula. HEENT: Pupils equal, round, reactive to light and accommodation. Neck supple. No jugular venous distention (JVD). Lungs: Clear bilaterally. Abdomen: Soft, nontender, nondistended. Extremities: Abrasions on lower extremity bilaterally, worse on the left side. Dressing is currently in place. Neurologic examination: No focal deficits. LABORATORY FINDINGS: WBC 12.5, hemoglobin 11.3, hematocrit 34, platelet count 385. Sodium 141,potassium 3.9, chloride 100, BUN 21, creatinine 0.53. Urinalysis was negative. Tibia-fibula x-ray showed no acute fractures or dislocations. ASSESSMENT AND PLAN: 1. Fall secondary to lower extremity weakness. The patient denied any syncopal episode. She has been complaining of weakness. She was just discharged from rehabilitation today. We will order an EKG just to rule out any arrhythmia. The patient denied any chest pain. No loss of consciousness. Likely secondary to weakness. We will order physical therapy for evaluation and treat. We will also request a patient and family services (PFS) consultation for placement long-term. Family is requesting the patient be placed in a long-term facility. She is unable to stay at home and her is unable to care for her. 2. History of tachycardia. The patient follows up with Dr. Hou. EKG is pending. We will continue the patient's digoxin and carvedilol. 3. History of dementia. 4. History of depression and anxiety. 5. Deep venous thrombosis (DVT) prophylaxis: Lovenox 30 mg subcutaneously daily.
[2016-11-17] MEDS ORDERED: ACET-654 PO (04:04)
[2016-11-17] MEDS ORDERED: MILKSUS PO (04:16)
[2016-11-17] MEDS ORDERED: ENEMENE3 PR (04:16)
[2016-11-17] MEDS ORDERED: ENSU-12 PO ×2 (04:16)
[2016-11-17] MEDS ORDERED: TYLE325T5 PO ×2 (04:16)
[2016-11-17] MEDS ORDERED: SENN8.6T7 PO (04:16)
[2016-11-17] MEDS ORDERED: FLEC25TA PO (04:16)
[2016-11-17] MEDS ORDERED: DULC10SU2 PR (04:16)
[2016-11-17 06:00] VITALS: BP 143/70
[2016-11-17 06:03] LABS: MEAN CORPUSCULAR HEMOGLOBIN 28.1 pg (27.0-33.0); MEAN CORPUSCULAR HGB CONC 32.1 g/dl (32.0-36.5); MEAN CORPUSCULAR VOLUME 87.5 fl (80.0-96.0); RED CELL DISTRIBUTION WIDTH 13.2 % (11.5-14.5); WHITE BLOOD COUNT 10.1 K/mm3 (4.0-10.0)
[2016-11-17 06:21] LABS: ALBUMIN 2.4 GM/DL (3.2-5.2); ALBUMIN/GLOBULIN RATIO 0.65 (1.00-1.93); ALKALINE PHOSPHATASE 66 U/L (45-117); ALT/SGPT 23 U/L (12-78); ANION GAP 2 MEQ/L (8-16); AST/SGOT 18 U/L (15-37); BILIRUBIN,TOTAL 0.2 MG/DL (0.2-1.0); BLOOD UREA NITROGEN 15 MG/DL (7-18); CALCIUM LEVEL 8.2 MG/DL (8.8-10.2); CARBON DIOXIDE LEVEL 37 MEQ/L (21-32); CHLORIDE LEVEL 102 MEQ/L (98-107); CREATININE FOR GFR 0.43 MG/DL (0.55-1.02); GLOMERULAR FILTRATION RATE > 60.0 (>32); GLUCOSE, FASTING 79 MG/DL (83-110); MAGNESIUM LEVEL 1.7 MG/DL (1.8-2.4); POTASSIUM SERUM 3.4 MEQ/L (3.5-5.1); SODIUM LEVEL 141 MEQ/L (136-145); TOTAL PROTEIN 6.1 GM/DL (6.4-8.2)
[2016-11-17] MEDS ORDERED: BISACODYL 10 MG SUPP PR PRN (06:30)
[2016-11-17] MEDS ORDERED: MOM 30ML SUSPENSION UDC PO PRN (06:30)
[2016-11-17] MEDS ORDERED: ACETAMINOPHEN TAB 650MG DOSE (2X325MG) PO PRN (06:45)
[2016-11-17] MEDS: PARoxetine 10MG TABLET PO SCH (08:51)
[2016-11-17] MEDS: VITAMIN D 1,000 INTERNATIONAL UNITS TABLET PO SCH (08:51)
[2016-11-17] MEDS: MULTIVITAMINS/MINERALS THERAP 1 TAB PO SCH (08:53)
[2016-11-17] MEDS: DIGOXIN 0.125 MG TAB PO SCH (08:53)
[2016-11-17] MEDS: SENOKOT S TAB PO SCH (08:53)
[2016-11-17] MEDS: ETHAMBUTOL 400MG TAB PO SCH (08:54)
[2016-11-17] MEDS: predniSONE 10 MG TAB PO SCH (08:54)
[2016-11-17] MEDS: FLECAINIDE 50MG TABLET PO SCH ×2 (08:54→21:17)
[2016-11-17] MEDS: ENOXAPARIN 30 MG/0.3 ML SYR (J1650) SC SCH (08:55)
[2016-11-17 10:20] VITALS: BP_SYST 111; BP_SYST 114; BP_SYST 97; BP_DIAS 111; BP_DIAS 56; BP_DIAS 74
[2016-11-17] MEDS ORDERED: POTASSIUM CHLORIDE 10 MEQ SR TABLET PO ONE (12:00)
[2016-11-17] MEDS ORDERED: SODIUM CHLORIDE 0.9% 1000 ML IV ONE (12:00)
[2016-11-17] MEDS ORDERED: MAG SULF 1GM/100ML (MAG RUN) 1 GM in APPROPRIATE DILUENT 1 EA IV ONE (12:00)
[2016-11-17 14:00] VITALS: BP 115/58
--- NOTE | 2016-11-17 16:05 | IPNPDOC ---
Subjective Date Seen The patient was seen on 11/17/16. Subjective Chief Complaint/HPI The patient is a 86-year-old female admitted with a reason for visit of FALL. Events since last encounter feeling well, was uncomfrtable with orthostatic vital signs, felt as though she may collapse, tolerating diet, no palpitations See Dr. Romo as outpt Constitutional: Denies: Chills, Fever Pulmonary: Denies: Dyspnea, Cough Cardiovascular: Denies: Chest Pain, Palpitations Gastrointestinal: Denies: Nausea, Vomiting, Abdominal Pain Objective Physical Examination General Exam: Positive: Alert, No Acute Distress ENT Exam: Positive: Mucous membr. moist/pink Chest Exam: Positive: Diminished, Negative: Rales, Rhonchi, Wheezing Heart Exam: Positive: Rate Normal, Regular Rhythm, Normal S1, Normal S2 Abdomen Exam: Positive: BS Hypoactive, Soft, Negative: Tenderness Assessment /Plan Problems (1) Orthostasis Status: Acute Problem Specific Plan: Monitor Clinically, Repeat Labs Problem Text: Patient has a slightly less than 20 mmhg drop of blood pressure with position change from laying to standing patient become profoundly weak, and nearly falls. This is likely the cause of her presentation will give ivf and hold her cardizem has known episodes of tachycardia- may need to pursue other rate control (2) SVT (supraventricular tachycardia) Status: Chronic (3) Interstitial lung disease Status: Chronic Problem Text: oxygen 2L via nc 24 hours/day (4) Skin tear of left lower leg without complication Status: Acute Problem Text: cleanly dressed, as a result of current fall, poa Plan/VTE VTE Prophylaxis Ordered?: Yes VS, I&O, 24H, Fishbone Vital Signs/I&O Vital Signs Date Time Temp Pulse Resp B/P (MAP) Pulse Ox O2 Delivery O2 Flow Rate FiO2 11/17/16 14:00 98.7 66 18 115/58 (77) 97 Nasal Cannula 2.0 I&O- Last 24 Hours up to 6 AM 11/17/16 06:00 Intake Total 0 ml Output Total 800 ml Balance -800 ml Laboratory Data 24H LABS Laboratory Tests 2 11/16/16 19:28: White Blood Count 12.5H, Red Blood Count 3.94L, Hemoglobin 11.3L, Hematocrit 34.0L, Mean Corpuscular Volume 86.5, Mean Corpuscular Hemoglobin 28.7, Mean Corpuscular Hemoglobin Concent 33.2, Red Cell Distribution Width 13.1, Platelet Count 385, Neutrophils (%) (Auto) 83.9H, Lymphocytes (%) (Auto) 8.5L, Monocytes (%) (Auto) 5.4H, Eosinophils (%) (Auto) 0.7, Basophils (%) (Auto) 0.2, Neutrophils # (Auto) 10.5H, Lymphocytes # (Auto) 1.1L, Monocytes # (Auto) 0.7, Eosinophils # (Auto) 0.1, Basophils # (Auto) 0.0, Large Unclassified Cells % 1.3 , Large Unclassified Cells # 0.2, Urine Appearance CLEAR, Urine Color YELLOW, Urine pH 6.0, Urine Specific [place] 1.013, Urine Protein NEGATIVE, Urine Glucose (UA) NEGATIVE, Urine Ketones NEGATIVE, Urine Urobilinogen 0.2, Urine Bilirubin NEGATIVE, Urine Leukocyte Esterase NEGATIVE, Urine Blood NEGATIVE, Urine Nitrite NEGATIVE, Urine WBC (Auto) 1, Urine RBC (Auto) 2, Urine Hyaline Casts (Auto) 0, Urine Bacteria (Auto) NEGATIVE, Urine Squamous Epithelial Cells 2, Urine Amorphous Sediment SMALLH, Urine Mucus (Auto) SMALL, Urine Sperm (Auto ) , Anion Gap 6L, Glomerular Filtration Rate > 60.0, Blood Urea Nitrogen 21H, Creatinine 0.53L, Sodium Level 141, Potassium Level 3.9, Chloride Level 100, Carbon Dioxide Level 35H, Calcium Level 8.9 11/17/16 05:42: Anion Gap 2L, Glomerular Filtration Rate > 60.0, Blood Urea Nitrogen 15, Creatinine 0.43L, Sodium Level 141, Potassium Level 3.4L, Chloride Level 102, Carbon Dioxide Level 37H, Calcium Level 8.2L, Aspartate Amino Transf (AST/SGOT) 18, Alanine Aminotransferase (ALT/SGPT) 23, Alkaline Phosphatase 66, Total Bilirubin 0.2, Total Protein 6.1L, Albumin 2.4L, Magnesium Level 1.7L, Albumin/ Globulin Ratio 0.65L CBC/BMP Laboratory Tests 11/16/16 19:28 Red Blood Count 3.94 L, Mean Corpuscular Volume 86.5, Mean Corpuscular Hemoglobin 28.7, Mean Corpuscular Hemoglobin Concent 33.2, Red Cell Distribution Width 13.1, Neutrophils (%) (Auto) 83.9 H, Lymphocytes (%) (Auto) 8.5 L, Monocytes (%) (Auto) 5.4 H, Eosinophils (%) (Auto) 0.7, Basophils (%) ( Auto) 0.2, Neutrophils # (Auto) 10.5 H, Lymphocytes # (Auto) 1.1 L, Monocytes # (Auto) 0.7, Eosinophils # (Auto) 0.1, Basophils # (Auto) 0.0, Calcium Level 8.9 11/17/16 05:42 Red Blood Count 3.74 L, Mean Corpuscular Volume 87.5, Mean Corpuscular Hemoglobin 28.1, Mean Corpuscular Hemoglobin Concent 32.1, Red Cell Distribution Width 13.2, Calcium Level 8.2 L, Aspartate Amino Transf (AST/SGOT) 18, Alanine Aminotransferase (ALT/SGPT) 23, Alkaline Phosphatase 66, Total Bilirubin 0.2, Total Protein 6.1 L, Albumin 2.4 L CORIE FRANCO MD November 17, 2016 16:05
--- NOTE | 2016-11-17 19:53 | ECGEPIP ---
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
[2016-11-17] MEDS: ACETAMINOPHEN TAB 650MG DOSE (2X325MG) PO SCH (21:17)
[2016-11-17] MEDS: NS 1,000 ML IV SCH (21:18)
[2016-11-17 21:59] VITALS: BP_SYST 116; BP_SYST 127; BP_SYST 129; BP_DIAS 59; BP_DIAS 64; BP_DIAS 65
[2016-11-17 22:00] VITALS: BP 130/66
[2016-11-18 06:00] VITALS: BP 158/72
[2016-11-18 06:03] LABS: MEAN CORPUSCULAR HEMOGLOBIN 27.9 pg (27.0-33.0); MEAN CORPUSCULAR HGB CONC 31.8 g/dl (32.0-36.5); MEAN CORPUSCULAR VOLUME 87.6 fl (80.0-96.0); RED CELL DISTRIBUTION WIDTH 13.3 % (11.5-14.5); WHITE BLOOD COUNT 9.1 K/mm3 (4.0-10.0)
[2016-11-18 06:14] LABS: ALBUMIN 2.3 GM/DL (3.2-5.2); ALBUMIN/GLOBULIN RATIO 0.61 (1.00-1.93); ALKALINE PHOSPHATASE 66 U/L (45-117); ALT/SGPT 24 U/L (12-78); ANION GAP 5 MEQ/L (8-16); AST/SGOT 17 U/L (15-37); BILIRUBIN,TOTAL 0.2 MG/DL (0.2-1.0); BLOOD UREA NITROGEN 10 MG/DL (7-18); CALCIUM LEVEL 8.2 MG/DL (8.8-10.2); CARBON DIOXIDE LEVEL 33 MEQ/L (21-32); CHLORIDE LEVEL 103 MEQ/L (98-107); CREATININE FOR GFR 0.41 MG/DL (0.55-1.02); GLOMERULAR FILTRATION RATE > 60.0 (>32); GLUCOSE, FASTING 75 MG/DL (83-110); MAGNESIUM LEVEL 1.8 MG/DL (1.8-2.4); POTASSIUM SERUM 3.9 MEQ/L (3.5-5.1); SODIUM LEVEL 141 MEQ/L (136-145); TOTAL PROTEIN 6.1 GM/DL (6.4-8.2)
[2016-11-18 06:18] VITALS: BP_SYST 143; BP_SYST 151; BP_DIAS 66; BP_DIAS 69; BP_DIAS 70
[2016-11-18] MEDS: NS 1,000 ML IV SCH (06:59)
[2016-11-18] MEDS: ENOXAPARIN 30 MG/0.3 ML SYR (J1650) SC SCH (08:14)
[2016-11-18] MEDS: PARoxetine 10MG TABLET PO SCH (08:14)
[2016-11-18] MEDS: VITAMIN D 1,000 INTERNATIONAL UNITS TABLET PO SCH (08:14)
[2016-11-18] MEDS: ETHAMBUTOL 400MG TAB PO SCH (08:14)
[2016-11-18] MEDS: FLECAINIDE 50MG TABLET PO SCH ×2 (08:14→20:32)
[2016-11-18] MEDS: predniSONE 10 MG TAB PO SCH (08:15)
[2016-11-18] MEDS: DIGOXIN 0.125 MG TAB PO SCH (08:15)
[2016-11-18] MEDS: MULTIVITAMINS/MINERALS THERAP 1 TAB PO SCH (08:15)
[2016-11-18] MEDS: SENOKOT S TAB PO SCH (08:15)
--- NOTE | 2016-11-18 10:46 | IPNPDOC ---
Subjective Date Seen The patient was seen on 11/18/16. Subjective Chief Complaint/HPI The patient is a 86-year-old female admitted with a reason for visit of FALL. Events since last encounter Feeling better. stronger, olerating diet, some throbbing left lower extremity pain Constitutional: Denies: Chills, Fever Pulmonary: Denies: Dyspnea, Cough Cardiovascular: Denies: Chest Pain, Palpitations Gastrointestinal: Denies: Nausea, Vomiting Objective Physical Examination General Exam: Positive: Alert, No Acute Distress ENT Exam: Positive: Mucous membr. moist/pink Chest Exam: Positive: Diminished, Negative: Rales, Rhonchi, Wheezing Heart Exam: Positive: Rate Normal, Regular Rhythm, Normal S1, Normal S2 Abdomen Exam: Positive: BS Hypoactive, Soft, Negative: Tenderness Other physical findings Left lower extremity- elongated area of denuded skin spanning nearly entire [place] , serous moisture, and minimal bleeding RLE- bruising Assessment /Plan Problems (1) Orthostasis Status: Acute Problem Specific Plan: Monitor Clinically, Repeat Labs Problem Text: Patient has a slightly less than 20 mmhg drop of blood pressure with position change from laying to standing patient become profoundly weak, and nearly falls. This is likely the cause of her presentation- seemed pre-renal - gave ivf and held cardizem patient has known episodes of tachycardia- restarting cardizem with parameters now that prerenal state has resolved (2) SVT (supraventricular tachycardia) Status: Chronic Problem Specific Plan: Monitor Clinically (3) Interstitial lung disease Status: Chronic Response to Treatment: Stable Problem Text: oxygen 2L via nc 24 hours/day (4) Skin tear of left lower leg without complication Status: Acute Problem Text: Both LE examined Left LLE [place] denuded- starting to granulate already- no s/s of infection RLE [place] with bruising no s/s of infection Plan/VTE VTE Prophylaxis Ordered?: Yes VS, I&O, 24H, Fishbone Vital Signs/I&O Vital Signs Date Time Temp Pulse Resp B/P (MAP) Pulse Ox O2 Delivery O2 Flow Rate FiO2 11/18/16 08:15 72 11/18/16 06:18 151/70 (97) 151/69 (96) 143/66 (91) 11/18/16 06:00 97.5 17 98 Nasal Cannula 2.0 I&O- Last 24 Hours up to 6 AM 11/18/16 06:00 Intake Total 2910 ml Output Total 600 ml Balance 2310 ml Laboratory Data 24H LABS Laboratory Tests 2 11/18/16 05:27: Anion Gap 5L, Glomerular Filtration Rate > 60.0, Blood Urea Nitrogen 10, Creatinine 0.41L, Sodium Level 141, Potassium Level 3.9, Chloride Level 103, Carbon Dioxide Level 33H, Calcium Level 8.2L, Aspartate Amino Transf (AST/SGOT) 17, Alanine Aminotransferase (ALT/SGPT) 24, Alkaline Phosphatase 66, Total Bilirubin 0.2, Total Protein 6.1L, Albumin 2.3L, Magnesium Level 1.8, Albumin/ Globulin Ratio 0.61L CBC/BMP Laboratory Tests 11/18/16 05:27 Red Blood Count 3.73 L, Mean Corpuscular Volume 87.6, Mean Corpuscular Hemoglobin 27.9, Mean Corpuscular Hemoglobin Concent 31.8 L, Red Cell Distribution Width 13.3, Calcium Level 8.2 L, Aspartate Amino Transf (AST/SGOT) 17, Alanine Aminotransferase (ALT/SGPT) 24, Alkaline Phosphatase 66, Total Bilirubin 0.2, Total Protein 6.1 L, Albumin 2.3 L CORIE FRANCO MD November 18, 2016 10:46
[2016-11-18 14:00] VITALS: BP_SYST 123; BP_SYST 132; BP_SYST 133; BP_DIAS 60; BP_DIAS 62; BP_DIAS 63
[2016-11-18] MEDS: ACETAMINOPHEN TAB 650MG DOSE (2X325MG) PO SCH (20:32)
[2016-11-18 20:34] VITALS: BP 122/52
[2016-11-18 22:00] VITALS: BP_SYST 126; BP_SYST 128; BP_SYST 132; BP_DIAS 68; BP_DIAS 70; BP_DIAS 71
[2016-11-18] MEDS ORDERED: traZODone 50 MG TAB PO ONE (23:00)
[2016-11-19 05:56] VITALS: BP_SYST 123; BP_SYST 126; BP_SYST 142; BP_DIAS 64; BP_DIAS 68; BP_DIAS 69
[2016-11-19 05:57] VITALS: BP 142/69
[2016-11-19 06:23] LABS: MEAN CORPUSCULAR HGB CONC 31.9 g/dl (32.0-36.5); MEAN CORPUSCULAR VOLUME 87.9 fl (80.0-96.0); RED CELL DISTRIBUTION WIDTH 13.3 % (11.5-14.5); WHITE BLOOD COUNT 9.3 K/mm3 (4.0-10.0)
[2016-11-19 06:28] LABS: ALBUMIN 2.5 GM/DL (3.2-5.2); ALBUMIN/GLOBULIN RATIO 0.61 (1.00-1.93); ALKALINE PHOSPHATASE 71 U/L (45-117); ALT/SGPT 26 U/L (12-78); ANION GAP 5 MEQ/L (8-16); AST/SGOT 19 U/L (15-37); BILIRUBIN,TOTAL 0.2 MG/DL (0.2-1.0); BLOOD UREA NITROGEN 14 MG/DL (7-18); CALCIUM LEVEL 8.9 MG/DL (8.8-10.2); CARBON DIOXIDE LEVEL 36 MEQ/L (21-32); CHLORIDE LEVEL 103 MEQ/L (98-107); CREATININE FOR GFR 0.48 MG/DL (0.55-1.02); GLOMERULAR FILTRATION RATE > 60.0 (>32); GLUCOSE, FASTING 78 MG/DL (83-110); MAGNESIUM LEVEL 2.1 MG/DL (1.8-2.4); POTASSIUM SERUM 3.6 MEQ/L (3.5-5.1); SODIUM LEVEL 144 MEQ/L (136-145); TOTAL PROTEIN 6.6 GM/DL (6.4-8.2)
[2016-11-19] MEDS: predniSONE 10 MG TAB PO SCH (09:00)
[2016-11-19] MEDS: FLECAINIDE 50MG TABLET PO SCH ×2 (09:00→20:39)
[2016-11-19] MEDS: DIGOXIN 0.125 MG TAB PO SCH (09:01)
[2016-11-19] MEDS: PARoxetine 10MG TABLET PO SCH (09:02)
[2016-11-19] MEDS: ENOXAPARIN 30 MG/0.3 ML SYR (J1650) SC SCH (09:02)
[2016-11-19] MEDS: VITAMIN D 1,000 INTERNATIONAL UNITS TABLET PO SCH (09:02)
[2016-11-19] MEDS: ETHAMBUTOL 400MG TAB PO SCH (09:02)
[2016-11-19] MEDS: SENOKOT S TAB PO SCH (09:02)
[2016-11-19] MEDS: MULTIVITAMINS/MINERALS THERAP 1 TAB PO SCH (09:02)
--- NOTE | 2016-11-19 09:15 | IPNPDOC ---
Subjective Date Seen The patient was seen on 11/19/16. Subjective Chief Complaint/HPI The patient is a 86-year-old female admitted with a reason for visit of FALL. Events since last encounter Feeling ok, no palpitations, had weakness/dizzyness with her orthostatic vital signs today, otherwise was feeling well, tolerating diet Constitutional: Denies: Chills, Fever Pulmonary: Denies: Dyspnea, Cough Cardiovascular: Denies: Chest Pain, Palpitations Gastrointestinal: Denies: Nausea, Vomiting, Abdominal Pain Objective Physical Examination General Exam: Positive: Alert, No Acute Distress ENT Exam: Positive: Mucous membr. moist/pink Chest Exam: Positive: Diminished, Negative: Rales, Rhonchi, Wheezing Heart Exam: Positive: Rate Normal, Regular Rhythm, Normal S1, Normal S2 Abdomen Exam: Positive: BS Hypoactive, Soft, Negative: Tenderness Extremity Exam: Positive: Other (dressings cdi Bilaterally) Assessment /Plan Problems (1) Orthostasis Status: Acute Problem Specific Plan: Monitor Clinically, Repeat Labs Problem Text: Patient had 14 mmhg drop of blood pressure with position change from laying to standing patient become weak, and dizzy. 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 patient has known episodes of tachycardia- (2) SVT (supraventricular tachycardia) Status: Chronic Problem Specific Plan: Monitor Clinically (3) Interstitial lung disease Status: Chronic Response to Treatment: Stable Problem Text: oxygen 2L via nc 24 hours/day (4) Skin tear of left lower leg without complication Status: Acute Problem Text: Both LE examined 11/18/16 Left LLE [place] denuded- starting to granulate already- no s/s of infection RLE [place] with bruising no s/s of infection Plan/VTE VTE Prophylaxis Ordered?: Yes VS, I&O, 24H, Fishbone Vital Signs/I&O Vital Signs Date Time Temp Pulse Resp B/P (MAP) Pulse Ox O2 Delivery O2 Flow Rate FiO2 11/19/16 09:01 72 11/19/16 05:57 97.7 16 142/69 (93) 100 Nasal Cannula 2.0 I&O- Last 24 Hours up to 6 AM 11/19/16 05:59 Intake Total 1800 ml Output Total 1450 ml Balance 350 ml Laboratory Data 24H LABS Laboratory Tests 2 11/19/16 05:53: Anion Gap 5L, Glomerular Filtration Rate > 60.0, Blood Urea Nitrogen 14, Creatinine 0.48L, Sodium Level 144, Potassium Level 3.6, Chloride Level 103, Carbon Dioxide Level 36H, Calcium Level 8.9, Aspartate Amino Transf (AST/SGOT) 19, Alanine Aminotransferase (ALT/SGPT) 26, Alkaline Phosphatase 71, Total Bilirubin 0.2, Total Protein 6.6, Albumin 2.5L, Magnesium Level 2.1, Albumin/ Globulin Ratio 0.61L CBC/BMP Laboratory Tests 11/19/16 05:53 Red Blood Count 3.88 L, Mean Corpuscular Volume 87.9, Mean Corpuscular Hemoglobin 28.0, Mean Corpuscular Hemoglobin Concent 31.9 L, Red Cell Distribution Width 13.3, Calcium Level 8.9, Aspartate Amino Transf (AST/SGOT) 19 , Alanine Aminotransferase (ALT/SGPT) 26, Alkaline Phosphatase 71, Total Bilirubin 0.2, Total Protein 6.6, Albumin 2.5 L CORIE FRANCO MD November 19, 2016 09:15
[2016-11-19 14:00] VITALS: BP_SYST 111; BP_SYST 124; BP_SYST 129; BP_SYST 147; BP_DIAS 54; BP_DIAS 57; BP_DIAS 62; BP_DIAS 69
[2016-11-19] MEDS: ACETAMINOPHEN TAB 650MG DOSE (2X325MG) PO SCH (20:39)
[2016-11-19 22:00] VITALS: BP 113/57
[2016-11-19 22:10] VITALS: BP_SYST 129; BP_SYST 136; BP_SYST 141; BP_DIAS 69; BP_DIAS 73; BP_DIAS 79
[2016-11-20 05:53] LABS: MEAN CORPUSCULAR HEMOGLOBIN 28.2 pg (27.0-33.0); MEAN CORPUSCULAR HGB CONC 32.3 g/dl (32.0-36.5); MEAN CORPUSCULAR VOLUME 87.3 fl (80.0-96.0); RED CELL DISTRIBUTION WIDTH 13.4 % (11.5-14.5); WHITE BLOOD COUNT 9.9 K/mm3 (4.0-10.0)
[2016-11-20 06:00] VITALS: BP_SYST 113; BP_SYST 117; BP_SYST 121; BP_DIAS 59; BP_DIAS 62
[2016-11-20 06:17] LABS: ALBUMIN 2.4 GM/DL (3.2-5.2); ALBUMIN/GLOBULIN RATIO 0.62 (1.00-1.93); ALKALINE PHOSPHATASE 74 U/L (45-117); ALT/SGPT 28 U/L (12-78); ANION GAP 4 MEQ/L (8-16); AST/SGOT 23 U/L (15-37); BILIRUBIN,TOTAL 0.2 MG/DL (0.2-1.0); BLOOD UREA NITROGEN 21 MG/DL (7-18); CALCIUM LEVEL 8.4 MG/DL (8.8-10.2); CARBON DIOXIDE LEVEL 36 MEQ/L (21-32); CHLORIDE LEVEL 99 MEQ/L (98-107); GLOMERULAR FILTRATION RATE > 60.0 (>32); GLUCOSE, FASTING 79 MG/DL (83-110); POTASSIUM SERUM 3.9 MEQ/L (3.5-5.1); SODIUM LEVEL 139 MEQ/L (136-145); TOTAL PROTEIN 6.3 GM/DL (6.4-8.2)
[2016-11-20] MEDS: PARoxetine 10MG TABLET PO SCH (08:22)
[2016-11-20] MEDS: MULTIVITAMINS/MINERALS THERAP 1 TAB PO SCH (08:22)
[2016-11-20] MEDS: predniSONE 10 MG TAB PO SCH (08:22)
[2016-11-20] MEDS: ETHAMBUTOL 400MG TAB PO SCH (08:22)
[2016-11-20] MEDS: VITAMIN D 1,000 INTERNATIONAL UNITS TABLET PO SCH (08:22)
[2016-11-20] MEDS: SENOKOT S TAB PO SCH (08:23)
[2016-11-20] MEDS: FLECAINIDE 50MG TABLET PO SCH ×2 (08:23→20:22)
[2016-11-20] MEDS: DIGOXIN 0.125 MG TAB PO SCH (08:23)
[2016-11-20] MEDS: ENOXAPARIN 30 MG/0.3 ML SYR (J1650) SC SCH (08:23)
--- NOTE | 2016-11-20 13:03 | IPNPDOC ---
Subjective Date Seen The patient was seen on 11/20/16. Subjective Chief Complaint/HPI The patient is a 86-year-old female admitted with a reason for visit of FALL. Events since last encounter Feeling better, some, but much less, weakness with position change, tolerates diet, no pain Constitutional: Denies: Chills, Fever Pulmonary: Denies: Dyspnea, Cough Cardiovascular: Denies: Chest Pain, Palpitations Gastrointestinal: Denies: Nausea, Vomiting, Abdominal Pain Objective Physical Examination General Exam: Positive: Alert, Cooperative, No Acute Distress Eye Exam: Negative: Sclera icteric ENT Exam: Positive: Mucous membr. moist/pink Chest Exam: Positive: Diminished, Negative: Rales, Rhonchi, Wheezing Heart Exam: Positive: Rate Normal, Regular Rhythm, Normal S1, Normal S2 Abdomen Exam: Positive: BS Hypoactive, Soft, Negative: Tenderness Extremity Exam: Positive: Other (dressings cdi Bilaterally) Assessment /Plan Problems (1) Orthostasis Status: Acute Problem Specific Plan: Monitor Clinically, Repeat Labs Problem Text: Patient had 14 mmhg drop of blood pressure with position change from laying to standing 11/19/16 patient become weak, and dizzy. 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) patient has known episodes of tachycardia- Patient would likely benefit from correction placement in a [facility] setting (2) SVT (supraventricular tachycardia) Status: Chronic Problem Specific Plan: Monitor Clinically (3) Interstitial lung disease Status: Chronic Response to Treatment: Stable Problem Text: oxygen 2L via nc 24 hours/day (4) Skin tear of left lower leg without complication Status: Acute Problem Text: Both LE examined 11/18/16 Left LLE [place] denuded- starting to granulate already- no s/s of infection RLE [place] with bruising no s/s of infection Plan/VTE VTE Prophylaxis Ordered?: Yes VS, I&O, 24H, Fishbone Vital Signs/I&O Vital Signs Date Time Temp Pulse Resp B/P (MAP) Pulse Ox O2 Delivery O2 Flow Rate FiO2 11/20/16 09:00 Nasal Cannula 2.0 11/20/16 08:23 65 11/20/16 06:00 121/62 (81) 117/59 (78) 113/62 (79) 11/20/16 06:00 98.3 17 96 I&O- Last 24 Hours up to 6 AM 11/20/16 06:00 Intake Total 800 ml Output Total 875 ml Balance -75 ml Laboratory Data 24H LABS Laboratory Tests 2 11/20/16 05:30: Anion Gap 4L, Glomerular Filtration Rate > 60.0, Blood Urea Nitrogen 21H, Creatinine 0.50L, Sodium Level 139, Potassium Level 3.9, Chloride Level 99, Carbon Dioxide Level 36H, Calcium Level 8.4L, Aspartate Amino Transf (AST/SGOT) 23, Alanine Aminotransferase (ALT/SGPT) 28, Alkaline Phosphatase 74, Total Bilirubin 0.2, Total Protein 6.3L, Albumin 2.4L, Magnesium Level 2.0, Albumin/ Globulin Ratio 0.62L CBC/BMP Laboratory Tests 11/20/16 05:30 Red Blood Count 3.69 L, Mean Corpuscular Volume 87.3, Mean Corpuscular Hemoglobin 28.2, Mean Corpuscular Hemoglobin Concent 32.3, Red Cell Distribution Width 13.4, Calcium Level 8.4 L, Aspartate Amino Transf (AST/SGOT) 23, Alanine Aminotransferase (ALT/SGPT) 28, Alkaline Phosphatase 74, Total Bilirubin 0.2, Total Protein 6.3 L, Albumin 2.4 L CORIE FRANCO MD November 20, 2016 13:03
[2016-11-20 14:00] VITALS: BP_SYST 108; BP_SYST 112; BP_SYST 113; BP_SYST 124; BP_DIAS 55; BP_DIAS 59
[2016-11-20] MEDS: ACETAMINOPHEN TAB 650MG DOSE (2X325MG) PO SCH (20:22)
[2016-11-20 22:00] VITALS: BP 152/67
[2016-11-20 22:10] VITALS: BP_SYST 128; BP_SYST 134; BP_SYST 143; BP_DIAS 60; BP_DIAS 63; BP_DIAS 70
[2016-11-21 06:00] VITALS: BP_SYST 118; BP_SYST 121; BP_SYST 134; BP_DIAS 63; BP_DIAS 71
[2016-11-21 07:46] LABS: MEAN CORPUSCULAR HEMOGLOBIN 28.3 pg (27.0-33.0); MEAN CORPUSCULAR HGB CONC 32.5 g/dl (32.0-36.5); MEAN CORPUSCULAR VOLUME 87.2 fl (80.0-96.0); RED CELL DISTRIBUTION WIDTH 13.3 % (11.5-14.5); WHITE BLOOD COUNT 11.3 K/mm3 (4.0-10.0)
[2016-11-21 08:20] LABS: ALBUMIN/GLOBULIN RATIO 0.77 (1.00-1.93); ALKALINE PHOSPHATASE 86 U/L (45-117); ALT/SGPT 30 U/L (12-78); ANION GAP 5 MEQ/L (8-16); AST/SGOT 23 U/L (15-37); BILIRUBIN,TOTAL 0.4 MG/DL (0.2-1.0); BLOOD UREA NITROGEN 15 MG/DL (7-18); CALCIUM LEVEL 8.5 MG/DL (8.8-10.2); CARBON DIOXIDE LEVEL 37 MEQ/L (21-32); CHLORIDE LEVEL 97 MEQ/L (98-107); GLOMERULAR FILTRATION RATE > 60.0 (>32); GLUCOSE, FASTING 77 MG/DL (83-110); POTASSIUM SERUM 3.7 MEQ/L (3.5-5.1); SODIUM LEVEL 139 MEQ/L (136-145); TOTAL PROTEIN 6.9 GM/DL (6.4-8.2)
[2016-11-21] MEDS: ENOXAPARIN 30 MG/0.3 ML SYR (J1650) SC SCH (08:35)
[2016-11-21] MEDS: ETHAMBUTOL 400MG TAB PO SCH (08:35)
[2016-11-21] MEDS: FLECAINIDE 50MG TABLET PO SCH ×2 (08:35→20:05)
[2016-11-21] MEDS: predniSONE 10 MG TAB PO SCH (08:35)
[2016-11-21] MEDS: MULTIVITAMINS/MINERALS THERAP 1 TAB PO SCH (08:35)
[2016-11-21] MEDS: PARoxetine 10MG TABLET PO SCH (08:36)
[2016-11-21] MEDS: VITAMIN D 1,000 INTERNATIONAL UNITS TABLET PO SCH (08:36)
[2016-11-21] MEDS: SENOKOT S TAB PO SCH (08:36)
[2016-11-21] MEDS: DIGOXIN 0.125 MG TAB PO SCH (08:36)
[2016-11-21 11:27] LABS: CORTISOL AM 14.1 UG/DL (4.3-22.4)
--- NOTE | 2016-11-21 12:22 | IPNPDOC ---
Subjective Date Seen The patient was seen on 11/21/16. Subjective Chief Complaint/HPI The patient is a 86-year-old female admitted with a reason for visit of FALL. General: Denies: Chills, Night Sweats Constitutional: Denies: Chills, Fever Eyes: Denies: Pain, Vision change ENT: Denies: Head Aches, Ear Pain Skin: Denies: Rash, Lesions Pulmonary: Denies: Dyspnea, Cough Cardiovascular: Denies: Chest Pain, Palpitations Gastrointestinal: Denies: Nausea, Vomiting Genitourinary: Denies: Dysuria, Frequency Objective Physical Examination General Exam: Positive: Alert, Cooperative, No Acute Distress Eye Exam: Negative: Sclera icteric ENT Exam: Positive: Mucous membr. moist/pink Chest Exam: Positive: Diminished, Negative: Rales, Rhonchi, Wheezing Heart Exam: Positive: Rate Normal, Regular Rhythm, Normal S1, Normal S2 Abdomen Exam: Positive: Soft, Negative: Tenderness Extremity Exam: Positive: Other (dressings cdi Bilaterally) Assessment /Plan Problems (1) Orthostasis Status: Acute Response to Treatment: Improving Problem Specific Plan: Monitor Clinically, Repeat Labs Problem Text: Patient's B/P has been stable this AM We will continue to have the patient work with PT and monitor for dizziness/ weakness Cardizem stopped on this admission Will follow up with PT recommendations (2) SVT (supraventricular tachycardia) Status: Chronic Response to Treatment: Stable Problem Specific Plan: Monitor Clinically Problem Text: Cont on Flecainide, Digoxin Rate controlled here Follows with Dr. Lal as an outpatient (3) Interstitial lung disease Status: Chronic Response to Treatment: Stable Problem Text: oxygen 2L via nc 24 hours/day Cont Prednisone (4) Skin tear of left lower leg without complication Status: Acute Response to Treatment: Stable Problem Text: B/L LE wrapped in surgical dressing, Dressing is CDI Plan/VTE VTE Prophylaxis Ordered?: Yes Disposition Will follow up with [facility] regarding further disposition status VS, I&O, 24H, Fishbone Vital Signs/I&O Vital Signs Date Time Temp Pulse Resp B/P (MAP) Pulse Ox O2 Delivery O2 Flow Rate FiO2 11/21/16 10:26 Nasal Cannula 2.0 11/21/16 08:36 77 11/21/16 06:00 134/63 (86) 121/71 (88) 118/71 (87) 11/20/16 22:00 97.8 21 98 I&O- Last 24 Hours up to 6 AM 11/21/16 06:00 Intake Total 1180 ml Output Total 950 ml Balance 230 ml Laboratory Data 24H LABS Laboratory Tests 2 11/21/16 07:24: Anion Gap 5L, Glomerular Filtration Rate > 60.0, Blood Urea Nitrogen 15, Creatinine 0.50L, Sodium Level 139, Potassium Level 3.7, Chloride Level 97L, Carbon Dioxide Level 37H, Calcium Level 8.5L, Aspartate Amino Transf (AST/SGOT) 23, Alanine Aminotransferase (ALT/SGPT) 30, Alkaline Phosphatase 86, Total Bilirubin 0.4#, Total Protein 6.9, Albumin 3.0#L, Magnesium Level 2.0, Albumin/ Globulin Ratio 0.77L, Cortisol AM Sample 14.1 CBC/BMP Laboratory Tests 11/21/16 07:24 Red Blood Count 4.24, Mean Corpuscular Volume 87.2, Mean Corpuscular Hemoglobin 28.3, Mean Corpuscular Hemoglobin Concent 32.5, Red Cell Distribution Width 13.3 , Calcium Level 8.5 L, Aspartate Amino Transf (AST/SGOT) 23, Alanine Aminotransferase (ALT/SGPT) 30, Alkaline Phosphatase 86, Total Bilirubin 0.4 #, Total Protein 6.9, Albumin 3.0 #L JR HODGE MD November 21, 2016 12:22
[2016-11-21 14:00] VITALS: BP_SYST 117; BP_SYST 119; BP_SYST 135; BP_DIAS 58; BP_DIAS 61
[2016-11-21] MEDS: ACETAMINOPHEN TAB 650MG DOSE (2X325MG) PO SCH (20:06)
[2016-11-21 20:20] VITALS: BP_SYST 146; BP_SYST 147; BP_SYST 152; BP_DIAS 67; BP_DIAS 69; BP_DIAS 70
[2016-11-22 05:23] VITALS: BP_SYST 130; BP_SYST 141; BP_SYST 143; BP_DIAS 68; BP_DIAS 70; BP_DIAS 74
[2016-11-22 06:00] VITALS: BP 143/74
[2016-11-22 06:23] LABS: MEAN CORPUSCULAR VOLUME 87.5 fl (80.0-96.0); RED CELL DISTRIBUTION WIDTH 13.3 % (11.5-14.5); WHITE BLOOD COUNT 8.7 K/mm3 (4.0-10.0)
[2016-11-22 06:44] LABS: ALBUMIN 2.6 GM/DL (3.2-5.2); ALBUMIN/GLOBULIN RATIO 0.65 (1.00-1.93); ALKALINE PHOSPHATASE 69 U/L (45-117); ALT/SGPT 24 U/L (12-78); ANION GAP 6 MEQ/L (8-16); AST/SGOT 18 U/L (15-37); BILIRUBIN,TOTAL 0.3 MG/DL (0.2-1.0); BLOOD UREA NITROGEN 16 MG/DL (7-18); CALCIUM LEVEL 8.8 MG/DL (8.8-10.2); CARBON DIOXIDE LEVEL 36 MEQ/L (21-32); CHLORIDE LEVEL 98 MEQ/L (98-107); CREATININE FOR GFR 0.51 MG/DL (0.55-1.02); GLOMERULAR FILTRATION RATE > 60.0 (>32); GLUCOSE, FASTING 77 MG/DL (83-110); MAGNESIUM LEVEL 1.8 MG/DL (1.8-2.4); POTASSIUM SERUM 3.4 MEQ/L (3.5-5.1); SODIUM LEVEL 140 MEQ/L (136-145); TOTAL PROTEIN 6.6 GM/DL (6.4-8.2)
[2016-11-22] MEDS ORDERED: POTASSIUM CHLORIDE 10 MEQ SR TABLET PO ONE (07:00)
[2016-11-22] MEDS: ETHAMBUTOL 400MG TAB PO SCH (08:46)
[2016-11-22] MEDS: MULTIVITAMINS/MINERALS THERAP 1 TAB PO SCH (08:47)
[2016-11-22] MEDS: SENOKOT S TAB PO SCH (08:47)
[2016-11-22] MEDS: predniSONE 10 MG TAB PO SCH (08:47)
[2016-11-22] MEDS: VITAMIN D 1,000 INTERNATIONAL UNITS TABLET PO SCH (08:47)
[2016-11-22] MEDS: PARoxetine 10MG TABLET PO SCH (08:47)
[2016-11-22] MEDS: FLECAINIDE 50MG TABLET PO SCH (08:47)
[2016-11-22] MEDS: ENOXAPARIN 30 MG/0.3 ML SYR (J1650) SC SCH (08:48)
[2016-11-22] MEDS: DIGOXIN 0.125 MG TAB PO SCH (08:48)
--- NOTE | 2016-11-22 15:18 | DS.PDOC ---
Discharge Summary General Date of Admission November 16, 2016 at 21:39 Date of Discharge 11/22/16 Discharge Summary PROCEDURES PERFORMED DURING STAY: None. ADMITTING DIAGNOSES: 1. . Status post fall 2. . Positive orthostatic vitals DISCHARGE DIAGNOSES: 1. . Status post fall 2. . Positive orthostatic vitals COMPLICATIONS/CHIEF COMPLAINT: FALL. HISTORY OF PRESENT ILLNESS: . 86-year-old female with past medical history of dementia, interstitial lung disease on 2 L of oxygen at home, and tachycardia presented to the ER after she sustained a fall at home. The patient was recently discharged from the hospital and sent to [facility] for rehabilitation where she spent 2 months, and was recently discharged home. The patient's family brought the patient to the ER stating that the patient could no longer live at home and that she would need placement in a long-term facility given her recurrent falls. The hospitalist team was called for admission for possible placement. During hospitalization imaging did not reveal any acute dislocations/fractures. The patient was noted to be orthostatic positive. The patient's Cardizem was discontinued, and my colleague Dr. Marcus did discuss this with the patient's capital project engineer Dr. Lal, who agreed with the same. The patient's orthostatic vital signs improved thereafter. The patient was seen by physical therapy here, who has recommended further physical rehabilitation. At this time, the patient states that she is feeling well, denies any acute complaints, and notes that she is eager to return to rehabilitation for physical therapy. DISCHARGE MEDICATIONS: Please see below. ALLERGIES: Please see below. PHYSICAL EXAMINATION ON DISCHARGE: VITAL SIGNS: Please see below. General Exam: Positive: Alert, Cooperative, No Acute Distress Eye Exam: Negative: Sclera icteric ENT Exam: Positive: Mucous membr. moist/pink Chest Exam: Positive: Diminished, Negative: Rales, Rhonchi, Wheezing Heart Exam: Positive: Rate Normal, Regular Rhythm, Normal S1, Normal S2 Abdomen Exam: Positive: Soft, Negative: Tenderness Extremity Exam: Positive: Other (dressings cdi Bilaterally) LABORATORY DATA: Please see below. IMAGING: Clinical: Trauma. Fall. Technique: AP and lateral views of the left tibia / fibula. Findings: Age-related osteopenia and degenerative changes are appreciated. No obvious acute fracture or dislocation. Impression: No acute fracture dislocation. PROGNOSIS: Medically stable ACTIVITY: As tolerated. DIET: . 2 g low sodium diet DISCHARGE PLAN: DISPOSITION: [facility]. DISCHARGE INSTRUCTIONS: 1. . Follow-up with primary care physician within one to 2 weeks ITEMS TO FOLLOWUP ON ON OUTPATIENT: 1. . Return to ER if symptoms persist or worsen. DISCHARGE CONDITION: Stable. TIME SPENT ON DISCHARGE: Greater than 30 minutes. Vital Signs/I&Os Vital Signs Date Time Temp Pulse Resp B/P (MAP) Pulse Ox O2 Delivery O2 Flow Rate FiO2 11/22/16 09:00 Nasal Cannula 2.0 11/22/16 08:48 88 11/22/16 06:00 98.1 23 143/74 (97) 99 I&O- Last 24 Hours up to 6 AM 11/22/16 05:59 Intake Total 1140 ml Output Total 955 ml Balance 185 ml Laboratory Data Labs 24H Laboratory Tests 2 11/22/16 06:08: Anion Gap 6L, Glomerular Filtration Rate > 60.0, Blood Urea Nitrogen 16, Creatinine 0.51L, Sodium Level 140, Potassium Level 3.4L, Chloride Level 98, Carbon Dioxide Level 36H, Calcium Level 8.8, Aspartate Amino Transf (AST/SGOT) 18, Alanine Aminotransferase (ALT/SGPT) 24, Alkaline Phosphatase 69, Total Bilirubin 0.3, Total Protein 6.6, Albumin 2.6L, Magnesium Level 1.8, Albumin/ Globulin Ratio 0.65L CBC/BMP Laboratory Tests 11/22/16 06:08 Red Blood Count 3.81 L, Mean Corpuscular Volume 87.5, Mean Corpuscular Hemoglobin 28.0, Mean Corpuscular Hemoglobin Concent 32.0, Red Cell Distribution Width 13.3, Calcium Level 8.8, Aspartate Amino Transf (AST/SGOT) 18 , Alanine Aminotransferase (ALT/SGPT) 24, Alkaline Phosphatase 69, Total Bilirubin 0.3, Total Protein 6.6, Albumin 2.6 L Discharge Medications Scheduled (Paroxetine) 10 Mg Tab, 10 MG PO DAILY, (Reported) (Ensure Clear) 1 Liq Liq, 200 CC PO DAILY, (Reported) (Ensure Clear) 1 Liq Liq, 160 CC PO QHS, (Reported) Acetaminophen (Tylenol) 325 Mg Tab, 650 MG PO QHS, (Reported) Beclomethasone Dipropionate (Qvar) 80 Mcg/Act Aer, 80 MCG INH BID, (Reported) Calcium/Vitamin D (Calcium 600 + D 600-400 mg-Unit) 1 Tab Tab, 1 TAB PO DAILY, ( Reported) Cholecalciferol (Vitamin D-3) 1,000 Unit Tab, 1,000 UNIT PO DAILY, (Reported) Cranberry Extract (Cranberry) 500 Mg Cap, 500 MG PO DAILY, (Reported) Digoxin (Digoxin) 0.125 Mg Tab, 0.125 MG PO DAILY, (Reported) Docusate Sod/Senna (Senna S 8.6-50 mg) 1 Tab Tab, 1 TAB PO DAILY, (Reported) Ethambutol HCl (Ethambutol HCl) 400 Mg Tab, 800 MG PO DAILY, (Reported) Flecainide Acetate (Flecainide Acetate) 25 Mg Halftab, 25 MG PO BID, (Reported) Multivitamins *[facility] STOCKED* (Thera M Plus *[facility] STOCK[facility]*) 1 Tab Tab, 1 TAB PO DAILY, (Reported) Prednisone (Prednisone) 10 Mg Tab, 10 MG PO DAILY, (Reported) Scheduled PRN Bisacodyl (Dulcolax) 10 Mg Sup, 10 MG MA DAILY PRN for CONSTIPATION, (Reported) Milk Of Magnesia (Milk of Magnesia) 1,200 Mg/15 Ml Rani, 30 ML PO DAILY PRN for CONSTIPATION, (Reported) Sodium Phosphate/Biphosphate (Enema 7-19 gm/118Ml) 1 Adrienne Adrienne, 1 ADRIENNE MA DAILY PRN for CONSTIPATION, (Reported) Allergies Coded Allergies: No Known Allergies (Unverified , 11/17/14) JR HODGE MD November 22, 2016 15:18
== END 2016-11-22 13:00 | DRG 312 ==
LOC: M ED 19:02 → UNDOADMIN 21:39 → M ED INP 21:39 → M ED 22:09 → M MSPAV 22:26
PROVIDERS: ADMIT Internal Medicine; ATTEND Internal Medicine
DX: I95.1 Orthostatic hypotension (principal); J84.9 Interstitial pulmonary disease, unspecified; I47.1 Supraventricular tachycardia; R53.1 Weakness; Z99.81 Dependence on supplemental oxygen; F03.90 Unspecified dementia, unspecified severity, without behavioral disturbance, psychotic disturbance, mood disturbance, and anxiety; R29.6 Repeated falls; Z79.52 Long term (current) use of systemic steroids; Z79.899 Other long term (current) drug therapy; W01.0XXA Fall on same level from slipping, tripping and stumbling without subsequent striking against object, initial encounter; Z90.710 Acquired absence of both cervix and uterus; S80.812A Abrasion, left lower leg, initial encounter; Y92.019 Unspecified place in single-family (private) house as the place of occurrence of the external cause; Y93.01 Activity, walking, marching and hiking; Y99.9 Unspecified external cause status

== ENCOUNTER → 2016-11-22 | Outpatient (REF) ==
[~2016-11-22] MED LIST changes: +ACET-654 PO; +DULC10SU2 PR; +ENEMENE3 PR; +ENSU-12 PO; +FLEC25TA PO; +MILKSUS PO; +PARO10TA84 PO; +PATIENT COMMENT; +SENN8.6T7 PO
--- NOTE | 2016-11-22 16:15 | REP ---
Chest one-view HISTORY: Wheezing Comparison: 09/07/2016 A diffuse increase in interstitial markings is present in the lungs consistent with chronic interstitial fibrosis. The cardiac silhouette is enlarged. The pulmonary vasculature is normal in appearance. Impression: 1. Chronic interstitial fibrosis. 2. Cardiomegaly. Signed by Merlin Sepulveda MD 11/22/2016 04:06 P
== END ==
PROVIDERS: ATTEND Internal Medicine
DX: Z00.00 Encounter for general adult medical examination without abnormal findings (principal)

== ENCOUNTER → 2016-11-28 | Outpatient (REF) | payer MEDICARE ==
[2016-11-28 11:31] LABS: MEAN CORPUSCULAR HEMOGLOBIN 28.9 pg (27.0-33.0); MEAN CORPUSCULAR HGB CONC 32.7 g/dl (32.0-36.5); MEAN CORPUSCULAR VOLUME 88.4 fl (80.0-96.0); RED CELL DISTRIBUTION WIDTH 13.6 % (11.5-14.5)
[2016-11-28 12:05] LABS: ANION GAP 9 MEQ/L (8-16); BLOOD UREA NITROGEN 18 MG/DL (7-18); CALCIUM LEVEL 9.4 MG/DL (8.8-10.2); CARBON DIOXIDE LEVEL 34 MEQ/L (21-32); CHLORIDE LEVEL 97 MEQ/L (98-107); CREATININE FOR GFR 0.53 MG/DL (0.55-1.02); GLOMERULAR FILTRATION RATE > 60.0 (>32); GLUCOSE, FASTING 126 MG/DL (83-110); POTASSIUM SERUM 3.5 MEQ/L (3.5-5.1); SODIUM LEVEL 140 MEQ/L (136-145)
== END ==
PROVIDERS: ATTEND Internal Medicine
DX: I47.1 Supraventricular tachycardia (principal)

== ENCOUNTER → 2016-12-05 | Outpatient (REF) ==
[2016-12-05 10:37] LABS: MEAN CORPUSCULAR HGB CONC 31.8 g/dl (32.0-36.5); MEAN CORPUSCULAR VOLUME 88.3 fl (80.0-96.0); RED CELL DISTRIBUTION WIDTH 13.7 % (11.5-14.5); WHITE BLOOD COUNT 11.1 K/mm3 (4.0-10.0)
[2016-12-05 11:01] LABS: ANION GAP 7 MEQ/L (8-16); BLOOD UREA NITROGEN 16 MG/DL (7-18); CALCIUM LEVEL 9.4 MG/DL (8.8-10.2); CARBON DIOXIDE LEVEL 35 MEQ/L (21-32); CHLORIDE LEVEL 94 MEQ/L (98-107); CREATININE FOR GFR 0.46 MG/DL (0.55-1.02); GLOMERULAR FILTRATION RATE > 60.0 (>32); GLUCOSE, FASTING 116 MG/DL (83-110); POTASSIUM SERUM 3.5 MEQ/L (3.5-5.1); SODIUM LEVEL 136 MEQ/L (136-145)
== END ==
PROVIDERS: ATTEND Internal Medicine
DX: Z00.00 Encounter for general adult medical examination without abnormal findings (principal)

== ENCOUNTER → 2016-12-13 | Outpatient (REF) ==
[2016-12-13 14:21] LABS: MEAN CORPUSCULAR HEMOGLOBIN 27.7 pg (27.0-33.0); MEAN CORPUSCULAR HGB CONC 31.8 g/dl (32.0-36.5); MEAN CORPUSCULAR VOLUME 87.2 fl (80.0-96.0); RED CELL DISTRIBUTION WIDTH 13.6 % (11.5-14.5); WHITE BLOOD COUNT 15.9 K/mm3 (4.0-10.0)
== END ==
PROVIDERS: ATTEND Internal Medicine
DX: L03.116 Cellulitis of left lower limb (principal)